=== PATIENT | female | born 1970 | race Caucasian/White ===

== ENCOUNTER → 2016-09-01 | Outpatient (CLI) | payer MEDICARE, BC ==
--- NOTE | 2016-09-02 08:22 | MM ---
Reason for exam: clinical finding. Last mammogram was performed 1 year ago. History: Patient is postmenopausal. Family history of breast cancer in 2 maternal aunts at age 40. Took hormonal contraceptives for 10 months. Taking estrogen for 2 years. Physical Findings: Nurse Summary: 0.5cm nodule in the left breast at 5:30 and at the nipple (nurse dw). MG 3D Diag Mammo W/Cad PABLO Bilateral CC and MLO view(s) were taken. Prior study comparison: September 08, 2015, bilateral MG 3d diag mammo w/cad PABLO. October 01, 2013, CAD bilateral diagnostic mammogram. The breast tissue is heterogeneously dense. This may lower the sensitivity of mammography. Finding: There are typically benign punctate calcifications. Left sided nipple/skin thickening. These results were verbally communicated with the patient and result sheet given to the patient on 09/01/16. ASSESSMENT: Incomplete: need additional imaging evaluation, BI-RAD 0 RECOMMENDATION: Ultrasound of both breasts. Manage patient on a clinical basis.
--- NOTE | 2016-09-02 08:29 | USB ---
Reason for exam: additional evaluation requested from abnormal screening. History: Patient is postmenopausal. Family history of breast cancer in 2 maternal aunts at age 40. Took hormonal contraceptives for 10 months. Taking estrogen for 2 years. US Breast BILAT Right breast ultrasound including all four quadrants, the retroareolar region and axilla demonstrates three lesions too small to characterize measuring 0.24 x 0.12 x 0.12cm at 4 o'clock, 0.38 x 0.22 x 0.47cm at 8 o'clock and 0.30 x 0.18 x 0.28cm at 11 o'clock. Left breast ultrasound including all four quadrants, the retroareolar region and axilla demonstrates a 0.60 x 0.29 x 0.70cm cystic cluster at 3 o'clock and a 0.48 x 0.20 x 0.47cm lesion too small to characterize at 5 o'clock. These results were verbally communicated with the patient and result sheet given to the patient on 09/01/16. ASSESSMENT: Benign, BI-RAD 2 RECOMMENDATION: Surgical consultation of both breasts. Manage patient on a clinical basis. Consider a biopsy and/or punch biopsy. Called Dr. Wing with mammographic findings and has scheduled an appointment for the patient for 09/03/16 at 12:[address] Triplett. PRELIMINARY REPORT CALLED AND FAXED TO DR. TRIPLETT ON 09/02/16 AT 300/TP. Follow-up diagnostic mammogram and ultrasound of both breasts in 6 months.
== END | disposition home or self-care (01) ==
LOC: RADMAMWWP 13:14
PROVIDERS: ATTEND Family Medicine
DX: R92.8 Other abnormal and inconclusive findings on diagnostic imaging of breast (principal); N60.09 Solitary cyst of unspecified breast
CPT/HCPCS: 76641; G0204; G0279

== ENCOUNTER → 2016-10-18 | Outpatient (CLI) | payer MEDICARE, BC ==
[2016-10-18 14:07] LABS: Basophils % (A) 1 %; CH 32.7; CHCM 34.1; Eosinophils % (A) 1 %; HCT 43.1 % (34.0-46.0); HDW 2.75; HGB 14.4 gm/dL (11.4-16.0); Luc # (Auto) 0.12; Luc % (Auto) 3; Lymphocytes # (A) 1.3 k/uL (1.0-4.8); Lymphocytes % (A) 33 %; MCH 32.2 pg (25.0-35.0); MCHC 33.5 g/dL (31.0-37.0); MCV 96.3 fL (80.0-100.0); Mean Platelet Volume 7.8; Monocytes # (A) 0.2 k/uL (0-1.0); Monocytes % (A) 4 %; Neutrophils # (A) 2.3 k/uL (1.3-7.7); Neutrophils % (A) 58 %; RBC 4.48 m/uL (3.80-5.40); RDW 13.6 % (11.5-15.5); WBC (Perox) 3.99
[2016-10-18 16:08] LABS: Erythrocyte Sedimentation Rate 7 mm/hr (0-20)
== END ==
LOC: LABWHC1 13:33
PROVIDERS: ATTEND Internal Medicine Rheumatology
DX: E11.9 Type 2 diabetes mellitus without complications (principal); M35.00 Sjogren syndrome, unspecified; M79.7 Fibromyalgia; M35.9 Systemic involvement of connective tissue, unspecified; G62.9 Polyneuropathy, unspecified; I73.00 Raynaud's syndrome without gangrene; M79.641 Pain in right hand; M79.642 Pain in left hand
CPT/HCPCS: 36415; 85025; 85652; 86140; 86480

== ENCOUNTER 2016-10-22 18:44 | Emergency (ER) | payer MEDICARE, BC ==
[2016-10-22 18:58] VITALS: RESP 18
[2016-10-22] MEDS ORDERED: HYDROcodone/APAP 10-325MG 1 EACH TAB PO ONE (19:32)
--- NOTE | 2016-10-22 20:10 | CT ---
EXAMINATION TYPE: CT brain cspine wo con DATE OF EXAM: 10/22/2016 8:01 PM COMPARISON: 10/25/[address] HISTORY: Fall today. Neck pain. CT DLP: 1713.00 mGycm Automated exposure control for dose reduction was used. TECHNIQUE: CT scan of the head and cervical spine are performed without contrast. FINDINGS: The ventricles and sulci appear normal. There is no mass effect nor midline shift. There is no sign of intracranial hemorrhage. The calvarium is intact. The cervical vertebra have normal alignment. Disc spaces are normal. Posterior elements are intact. F acet joints appear intact. The skull base is intact. IMPRESSION: Negative CT scan of the brain. Negative CT scan of the cervical spine.
--- NOTE | 2016-10-22 20:44 | XR ---
EXAMINATION TYPE: XR wrist complete RT DATE OF EXAM: 10/22/2016 8:32 PM COMPARISON: NONE HISTORY: Fell and wrist pain TECHNIQUE: 4 views FINDINGS: I see no fracture nor dislocation. Joint spaces are normal. Carpal bones appear intact. IMPRESSION: Negative right wrist exam.
--- NOTE | 2016-10-22 20:45 | XR ---
EXAMINATION TYPE: XR elbow complete RT DATE OF EXAM: 10/22/2016 8:32 PM COMPARISON: NONE HISTORY: Fell today and pain TECHNIQUE: 3 views FINDINGS: I see no fracture nor dislocation. There is no sign of elbow joint effusion. Joint spaces a re normal. IMPRESSION: Negative right elbow exam.
--- NOTE | 2016-10-22 20:45 | XR ---
EXAMINATION TYPE: XR ankle complete RT DATE OF EXAM: 10/22/2016 8:32 PM COMPARISON: NONE HISTORY: Ankle pain TECHNIQUE: 3 views FINDINGS: Ankle mortise is anatomic. I see no fracture nor dislocation. There is a small plantar calc aneal spur. There are small Achilles calcaneal spur. Joint spaces are fairly normal. IMPRESSION: Mild calcaneal spurring. No fracture seen.
--- NOTE | 2016-10-22 20:46 | XR ---
EXAMINATION TYPE: XR knee complete RT DATE OF EXAM: 10/22/2016 8:32 PM COMPARISON: NONE HISTORY: Knee pain TECHNIQUE: 3 views FINDINGS: I see no fracture nor dislocation. Joint spaces are normal. There is no sign of knee joint effusion. IMPRESSION: Negative right knee exam.
--- NOTE | 2016-10-22 20:47 | XR ---
EXAMINATION TYPE: XR Hip Complete RT DATE OF EXAM: 10/22/2016 8:32 PM COMPARISON: NONE HISTORY: Hip pain TECHNIQUE: 2 views FINDINGS: I see no fracture nor dislocation. Hip joint space is normal. Sacroiliac joint appears norm al. IMPRESSION: Negative right hip exam.
--- NOTE | 2016-10-22 20:49 | XR ---
EXAMINATION TYPE: XR lumbar spine 2 or 3V DATE OF EXAM: 10/22/2016 8:32 PM COMPARISON: NONE HISTORY: Fell today and back pain TECHNIQUE: 3 views FINDINGS: Lumbar vertebra have normal spacing and alignment. Posterior elements are intact. Sacroilia c joints are normal. IMPRESSION: Negative lumbar spine exam.
--- NOTE | 2016-10-22 20:49 | XR ---
EXAMINATION TYPE: XR thoracic spine 2V DATE OF EXAM: 10/22/2016 8:32 PM COMPARISON: NONE HISTORY: Back pain TECHNIQUE: 3 views FINDINGS: Thoracic vertebra have normal spacing and alignment. Posterior elements are intact. There i s no paraspinal mass. There is no sign of a compression fracture. IMPRESSION: Negative thoracic spine exam.
--- NOTE | 2016-10-22 20:58 | ED ---
Fall HPI - General Chief Complaint: Fall Stated Complaint: SLIP AND FALL, NECK INJURY Time Seen by Provider: 10/22/16 19:23 Source: patient, RN notes reviewed Mode of arrival: wheelchair Limitations: no limitations - History of Present Illness Initial Comments: 46-year-old female comes emergency Department chief complaints of a fall. Patient states she was leaving [facility] states that she fell. Patient complains of right-sided pain. She complains of a headache, neck pain, right elbow pain and right wrist pain right knee pain and right ankle pain and back pain. She has chronic pain in which she takes Percocet for. Patient did not lose consciousness. Denies any confusion. Denies any chest pain, shortness breath, nausea, vomiting. - Related Data Home Medications Medication Instructions Recorded Confirmed Hydroxychloroquine Sulfate 200 mg PO BID 12/17/13 10/01/16 [Plaquenil] Gabapentin [Neurontin] 600 mg PO QID 12/21/13 10/01/16 Methotrexate Sodium [Methotrexate] 20 mg PO ANDERSON 10/02/14 10/01/16 DULoxetine HCL [Cymbalta] 60 mg PO DAILY 02/15/16 10/01/16 Furosemide [Lasix] 40 mg PO DAILY 02/16/16 10/01/16 LORazepam [Ativan] 2 mg PO TID 02/16/16 10/01/16 Potassium Chloride [Klor-Con] 20 meq PO BID 02/16/16 10/01/16 Albuterol Sulfate [Proair Hfa] 2 puff INHALATION RT-TID PRN 07/25/16 10/01/16 Amitriptyline HCl [Elavil] 75 mg PO HS 07/25/16 10/01/16 Budesonide/Formoterol Fumarate 2 puff INHALATION RT-BID 07/25/16 10/01/16 [Symbicort 160-4.5 Mcg Inhaler] Diclofenac Sodium [Voltaren Gel] 4 gram TOPICAL QID PRN 07/25/16 10/01/16 Ergocalciferol (Vitamin D2) 50,000 unit PO WEEKLY 07/25/16 10/01/16 [Vitamin D2] Folic Acid 1 mg PO DAILY 07/25/16 10/01/16 Lidocaine 5% Oint [Xylocaine 5% 1 applic TOPICAL QID PRN 07/25/16 10/01/16 Oint] Lidocaine 5% Patch [Lidoderm 5% 3 patch TOPICAL Q12H PRN 07/25/16 10/01/16 Patch] Methocarbamol [Robaxin] 1,500 mg PO TID 07/25/16 10/01/16 Ondansetron [Zofran ODT] 4 mg PO Q8HR PRN 07/25/16 10/01/16 oxyCODONE-APAP 10-325MG [Percocet 1 tab PO TID 07/25/16 10/01/16 10-325 mg] Perampanel [Fycompa] 1 each PO DAILY 09/28/16 10/01/16 Sennosides [Senna] 8.6 mg PO BID 09/28/16 10/01/16 Allergies Allergy/AdvReac Type Severity Reaction Status Date / Time fentanyl Allergy Rash/Hives Verified 10/22/16 18:58 gluten Allergy Unknown Verified 10/22/16 18:58 latex Allergy Unknown Verified 10/22/16 18:58 simvastatin [From Zocor] Allergy Unknown Verified 10/22/16 18:58 Sulfa (Sulfonamide Allergy Unknown Verified 10/22/16 18:58 Antibiotics) Review of Systems ROS Statement: Those systems with pertinent positive or pertinent negative responses have been documented in the HPI. ROS Other: All systems not noted in ROS Statement are negative. Past Medical History Past Medical History: Asthma, Fibromyalgia, Hypertension, Rheumatoid Arthritis ( RA) Additional Past Medical History / Comment(s): endometriosis, migraine, carpel tunnel, lupus, ovarian cysts, per pt said poss seizure or stroke 2 yrs ago but not confirmed, interstitial cystitis History of Any Multi-Drug Resistant Organisms: MRSA Date of last positivie culture/infection: 2011 MDRO Source:: back Past Surgical History: Appendectomy, Section, Hysterectomy, Tubal Ligation Additional Past Surgical History / Comment(s): c- section x 2, throat surgery, jimena renal stents with removal, ovarian cyst removal Past Anesthesia/Blood Transfusion Reactions: No Reported Reaction Past Psychological History: Depression Smoking Status: Former smoker Past Alcohol Use History: Occasional Additional Past Alcohol Use History / Comment(s): pt states she only smokes a houka pipe occasionally Past Drug Use History: Marijuana - Past Family History Father Family Medical History: CVA/TIA, Diabetes Mellitus, Myocardial Infarction ([place]) Mother Family Medical History: CVA/TIA, Rheumatoid Arthritis ([place]) Additional Family Medical History / Comment(s): Schizo, heart problems General Exam Limitations: no limitations General appearance: alert, in no apparent distress Head exam: Present: atraumatic, normocephalic, normal inspection Eye exam: Present: normal appearance, PERRL, EOMI. Absent: scleral icterus, conjunctival injection, periorbital swelling ENT exam: Present: normal exam, normal oropharynx, mucous membranes moist, TM's normal bilaterally, normal external ear exam Neck exam: Present: normal inspection, tenderness. Absent: meningismus, full ROM (Patient's c-collar), lymphadenopathy Respiratory exam: Present: normal lung sounds bilaterally. Absent: respiratory distress, wheezes, rales, rhonchi, stridor, chest wall tenderness Cardiovascular Exam: Present: regular rate, normal rhythm, normal heart sounds. Absent: systolic murmur, diastolic murmur, rubs, gallop, clicks GI/Abdominal exam: Present: soft, normal bowel sounds. Absent: distended, tenderness, guarding, rebound, rigid Extremities exam: Present: other (Right shoulder full range of motion, mild pain to the right elbow with palpation though full range of motion, right wrist tenderness is old surgical scar noted right knee full range of motion no iris deformity mild swelling right ankle mild tenderness no swelling neurovascular intact) Back exam: Present: normal inspection, full ROM, tenderness (Diffuse moderate), paraspinal tenderness. Absent: vertebral tenderness Neurological exam: Present: alert, oriented X3, CN II-XII intact, reflexes normal. Absent: motor sensory deficit Psychiatric exam: Present: normal affect, normal mood Course Vital Signs 10/22/16 18:56 Temperature 98.0 F Pulse Rate 85 Respiratory 18 Rate Blood Pressure 135/92 O2 Sat by Pulse 99 Oximetry Medical Decision Making - Medical Decision Making 46-year-old female presented for fall. There is no acute fractures no intracranial bleed. Patient be discharged. Disposition Clinical Impression: Fall, Right wrist sprain, Right ankle sprain, Right elbow pain, Right knee pain , Back pain Disposition: HOME SELF-CARE Condition: Stable Instructions: Contusion in Adults (ED) Additional Instructions: Please return to the Emergency Department if symptoms worsen or any other concerns. Referrals: Alicia Wing III, MD [Primary Care Provider] - 1-2 days Time of Disposition: 20:58
[2016-10-22] MEDS ORDERED: MORPHINE SULFATE 4 MG/ML SYRINGE IM STA (21:02)
[2016-10-22 21:16] VITALS: BP 142/75; PULSE 65; TEMP 98.3
== END 2016-10-22 21:16 | disposition home or self-care (01) ==
LOC: EC 18:44
DX: S63.501A Unspecified sprain of right wrist, initial encounter (principal); S93.401A Sprain of unspecified ligament of right ankle, initial encounter; M25.521 Pain in right elbow; M54.9 Dorsalgia, unspecified; M25.561 Pain in right knee; W01.0XXA Fall on same level from slipping, tripping and stumbling without subsequent striking against object, initial encounter; Y92.512 Supermarket, store or market as the place of occurrence of the external cause; M79.7 Fibromyalgia; M06.9 Rheumatoid arthritis, unspecified; I10 Essential (primary) hypertension; J45.909 Unspecified asthma, uncomplicated; M32.9 Systemic lupus erythematosus, unspecified; G43.909 Migraine, unspecified, not intractable, without status migrainosus; F32.9 Major depressive disorder, single episode, unspecified; Z79.51 Long term (current) use of inhaled steroids; Z79.891 Long term (current) use of opiate analgesic; Z79.899 Other long term (current) drug therapy; Z88.2 Allergy status to sulfonamides; Z88.5 Allergy status to narcotic agent; Z88.8 Allergy status to other drugs, medicaments and biological substances; Z91.040 Latex allergy status; Z87.891 Personal history of nicotine dependence
CPT/HCPCS: 72070; 72100; 73502; 73080; 73110; 73562; 73610; 72125; 70450; 99284; 96372; J2270

== ENCOUNTER 2016-10-23 08:59 | Emergency (ER) | payer MEDICARE, BC ==
[2016-10-23 09:06] VITALS: BP 133/84; PULSE 86; RESP 16; TEMP 98.6
[2016-10-23] MEDS ORDERED: DIAZEPAM 5 MG TAB PO STA (09:34)
--- NOTE | 2016-10-23 09:39 | ED ---
General Adult HPI - General Chief complaint: Back Pain/Injury Stated complaint: BACK PAIN, NECK PAIN, HEADACHE Time Seen by Provider: 10/23/16 09:25 Source: patient, RN notes reviewed, old records reviewed Mode of arrival: wheelchair Limitations: no limitations - History of Present Illness Initial comments: Patient 46-year-old female who presents emergency room today with a chief complaint of a fall that occurred yesterday. Patient was seen here in the emergency room had multiple x-rays and CAT scan of her head and neck. Patient states had a difficult time sleeping last night. She does admit to a history of fibromyalgia. States she feels like her fibromyalgia is increased. She is under pain contract does take a Percocet. States she did take this with little relief of her symptoms. Patient was given morphine yesterday. Patient states there is sore on the right side. Patient states is worse with any movements, turning, twisting. Patient denies any bowel or bladder incontinence retention. Denies any saddle anesthesia. Denies headache at this time. Denies any loss consciousness from the fall. States she's having pain to right side of her back of her shoulder. Describes as "burning sensation. Denies any other complaints or symptoms. Patient denies any recent fever, chills, shortness of breath, chest pain, back pain, abdominal pain, nausea or vomiting, numbness or tingling, dysuria or hematuria, constipation or diarrhea, headaches or visual changes, or any other complaints. - Related Data Home Medications Medication Instructions Recorded Confirmed Hydroxychloroquine Sulfate 200 mg PO BID 12/17/13 10/23/16 [Plaquenil] Gabapentin [Neurontin] 600 mg PO QID 12/21/13 10/23/16 Methotrexate Sodium [Methotrexate] 20 mg PO ANDERSON 10/02/14 10/23/16 DULoxetine HCL [Cymbalta] 60 mg PO DAILY 02/15/16 10/23/16 Furosemide [Lasix] 40 mg PO DAILY 02/16/16 10/23/16 LORazepam [Ativan] 2 mg PO TID 02/16/16 10/23/16 Potassium Chloride [Klor-Con] 20 meq PO BID 02/16/16 10/23/16 Albuterol Sulfate [Proair Hfa] 2 puff INHALATION RT-TID PRN 07/25/16 10/23/16 Amitriptyline HCl [Elavil] 75 mg PO HS 07/25/16 10/23/16 Budesonide/Formoterol Fumarate 2 puff INHALATION RT-BID 07/25/16 10/23/16 [Symbicort 160-4.5 Mcg Inhaler] Diclofenac Sodium [Voltaren Gel] 4 gram TOPICAL QID PRN 07/25/16 10/23/16 Ergocalciferol (Vitamin D2) 50,000 unit PO WEEKLY 07/25/16 10/23/16 [Vitamin D2] Folic Acid 1 mg PO DAILY 07/25/16 10/23/16 Lidocaine 5% Oint [Xylocaine 5% 1 applic TOPICAL QID PRN 07/25/16 10/23/16 Oint] Lidocaine 5% Patch [Lidoderm 5% 3 patch TOPICAL Q12H PRN 07/25/16 10/23/16 Patch] Methocarbamol [Robaxin] 1,500 mg PO TID 07/25/16 10/23/16 Ondansetron [Zofran ODT] 4 mg PO Q8HR PRN 07/25/16 10/23/16 oxyCODONE-APAP 10-325MG [Percocet 1 tab PO TID 07/25/16 10/23/16 10-325 mg] Perampanel [Fycompa] 1 each PO DAILY 09/28/16 10/23/16 Sennosides [Senna] 8.6 mg PO BID 09/28/16 10/23/16 Previous Rx's Medication Instructions Recorded Cyclobenzaprine [Flexeril] 10 mg PO TID #20 tab 10/23/16 Allergies Allergy/AdvReac Type Severity Reaction Status Date / Time fentanyl Allergy Rash/Hives Verified 10/23/16 09:05 gluten Allergy Unknown Verified 10/23/16 09:05 latex Allergy Unknown Verified 10/23/16 09:05 simvastatin [From Zocor] Allergy Unknown Verified 10/23/16 09:05 Sulfa (Sulfonamide Allergy Unknown Verified 10/23/16 09:05 Antibiotics) Review of Systems ROS Statement: Those systems with pertinent positive or pertinent negative responses have been documented in the HPI. ROS Other: All systems not noted in ROS Statement are negative. Past Medical History Past Medical History: Asthma, Fibromyalgia, Hypertension, Rheumatoid Arthritis ( RA) Additional Past Medical History / Comment(s): endometriosis, migraine, carpel tunnel, lupus, ovarian cysts, per pt said poss seizure or stroke 2 yrs ago but not confirmed, interstitial cystitis History of Any Multi-Drug Resistant Organisms: MRSA Date of last positivie culture/infection: 2011 MDRO Source:: back Past Surgical History: Appendectomy, Section, Hysterectomy, Tubal Ligation Additional Past Surgical History / Comment(s): c- section x 2, throat surgery, jimena renal stents with removal, ovarian cyst removal Past Anesthesia/Blood Transfusion Reactions: No Reported Reaction Past Psychological History: Depression Smoking Status: Former smoker Past Alcohol Use History: Occasional Additional Past Alcohol Use History / Comment(s): pt states she only smokes a houka pipe occasionally Past Drug Use History: Marijuana - Past Family History Father Family Medical History: CVA/TIA, Diabetes Mellitus, Myocardial Infarction ([place]) Mother Family Medical History: CVA/TIA, Rheumatoid Arthritis (RA) Additional Family Medical History / Comment(s): Schizo, heart problems General Exam - General Exam Comments Initial Comments: General: The patient is awake and alert, in no distress, and does not appear acutely ill. Eye: Pupils are equal, round and reactive to light, extra-ocular movements are intact. No nystagmus. There is normal conjunctiva bilaterally. No signs of icterus. Ears, nose, mouth and throat: There are moist mucous membranes and no oral lesions. Neck: The neck is supple, there is no tenderness or JVD. Cardiovascular: There is a regular rate and rhythm. No murmur, rub or gallop is appreciated. Respiratory: Lungs are clear to auscultation, respirations are non-labored, breath sounds are equal. No wheezes, stridor, rales, or rhonchi. Musculoskeletal: Normal ROM, no bony tenderness over cervical, thoracic, lumbar spine. Mild tenderness paravertebrally to the right side. No bony tenderness over the right shoulder. Shows full range motion all areas. Strength 5/5. Sensation intact. Pulses equal bilaterally 2+. Neurological: A&O x 3. CN II-XII intact, There are no obvious motor or sensory deficits. Coordination appears grossly intact. Speech is normal. Skin: Skin is warm and dry and no rashes or lesions are noted. Psychiatric: Cooperative, appropriate mood & affect, normal judgment. Limitations: no limitations Course Vital Signs 10/23/16 09:00 Temperature 98.6 F Pulse Rate 86 Respiratory 16 Rate Blood Pressure 133/84 O2 Sat by Pulse 93 L Oximetry Medical Decision Making - Medical Decision Making Patient's previous visit from yesterday thoroughly reviewed. All x-rays and CAT scans reviewed showing no acute fractures dislocations or abnormalities. Results were discussed with the patient. At this time patient advised to follow -up in 7-10 days for repeat x-rays of any specific areas that seem to be tender and not improving. Was discussed with patient about muscle or skeletal pain. Will be given Valium here in the emergency room to use as a muscle relaxant discharged home on Flexeril. Advised continue her Percocet and ibuprofen for pain. Advised to follow-up the family doctor return for any other concerns. Disposition Clinical Impression: Fall, Muscle strain Disposition: HOME SELF-CARE Condition: Good Instructions: Muscle Strain (ED) Additional Instructions: Please use ice for any swelling. Please use heat to the muscle areas as discussed. Please follow-up the family doctor in 7-10 days if symptoms persist for repeat x-rays as discussed. Please muscle relaxer as prescribed and be aware that it may make you drowsy. Please return to emergency room for any other concerns. Prescriptions: Cyclobenzaprine [Flexeril] 10 mg PO TID #20 tab Time of Disposition: 09:37
== END 2016-10-23 10:27 | disposition home or self-care (01) ==
LOC: EC 08:59
DX: S39.012A Strain of muscle, fascia and tendon of lower back, initial encounter (principal); M54.2 Cervicalgia; R51 Headache; J45.909 Unspecified asthma, uncomplicated; I10 Essential (primary) hypertension; M06.9 Rheumatoid arthritis, unspecified; M79.7 Fibromyalgia; F32.9 Major depressive disorder, single episode, unspecified; Z87.891 Personal history of nicotine dependence; Z79.891 Long term (current) use of opiate analgesic; Z79.899 Other long term (current) drug therapy; Z79.51 Long term (current) use of inhaled steroids; Z88.8 Allergy status to other drugs, medicaments and biological substances; Z88.2 Allergy status to sulfonamides; Z91.040 Latex allergy status; Z86.69 Personal history of other diseases of the nervous system and sense organs; X50.3XXA Overexertion from repetitive movements, initial encounter
CPT/HCPCS: 99283

== ENCOUNTER → 2016-10-28 | Outpatient (CLI) | payer MEDICARE, BC ==
--- NOTE | 2016-10-28 09:48 | MR ---
EXAMINATION TYPE: MR brain wo con DATE OF EXAM: 10/28/2016 9:31 AM. COMPARISON: Previous study dated 07/30/2011. HISTORY: Unexplained fall. Technique: Multiplanar, multiecho imaging of the brain was obtained without intravenous contrast. FINDINGS: Midline structures are unremarkable. There is a normal craniocervical junction. Echoplanar diffusion imaging is normal. There are normal vascular flow voids. The orbits are unremarkable. I do not see evidence of a CP angle mass lesion. There are scattered subcentimeter high signal FLAIR lesions throughout both cerebral hemispheres. The se are stable. There is no mass effect, midline shift or intracranial blood identified. IMPRESSION: 1. NO ACUTE INTRACRANIAL ABNORMALITY. 2. NUMEROUS, SCATTERED HIGH SIGNAL FLAIR LESIONS THROUGHOUT THE DEEP WHITE MATTER TRACTS OF THE CEREB RAL HEMISPHERES, UNCHANGED FROM PREVIOUS. A DIFFERENTIAL DIAGNOSIS INCLUDES SMALL VESSEL DISEASE, DEM YELINATION, HYPERTENSION, MIGRAINE HEADACHES AND LYME'S DISEASE.
== END | disposition home or self-care (01) ==
LOC: RADMRIMAIN 08:11
PROVIDERS: ATTEND Nurse Practitioner Family
DX: G93.89 Other specified disorders of brain (principal); R90.82 White matter disease, unspecified; R11.0 Nausea
CPT/HCPCS: 70551

== ENCOUNTER 2016-12-01 22:03 | Emergency (ER) | payer MEDICARE, BC ==
[2016-12-01 22:26] VITALS: RESP 16; TEMP 98.2
[2016-12-01] MEDS ORDERED: diphenhydrAMINE 50 MG/ML 1 ML VIAL IVP STA (22:37)
[2016-12-01] MEDS ORDERED: methylPREDNISolone SOD SUCCI 125 MG/2 ML VIAL IV STA (22:37)
--- NOTE | 2016-12-01 22:39 | ED ---
General Adult HPI - General Chief complaint: Allergic Reaction Stated complaint: Allergic Reaction (MRI contrast) Time Seen by Provider: 12/01/16 22:25 Source: patient, RN notes reviewed Mode of arrival: ambulatory Limitations: no limitations - History of Present Illness Initial comments: This is a 46 year old female presents to the emergency department after having had contrast with an MRI today. Patient states about 45 minutes ago she finished her MRI and her hand was burning and she had a rash down her arm and starting on the other arm. Patient states the rash is very itchy. Patient states she has a dry throat when I ask her if her throat feels like it's closing. Patient states she's had no difficulty breathing shortness of breath per patient denies any chest pain or palpitations. Patient denies any nausea vomiting diarrhea. Patient denies any headache patient denies numbness weakness. - Related Data Home Medications Medication Instructions Recorded Confirmed Hydroxychloroquine Sulfate 200 mg PO BID 12/17/13 12/01/16 [Plaquenil] Gabapentin [Neurontin] 600 mg PO QID 12/21/13 12/01/16 DULoxetine HCL [Cymbalta] 60 mg PO DAILY 02/15/16 12/01/16 Furosemide [Lasix] 40 mg PO DAILY 02/16/16 12/01/16 LORazepam [Ativan] 2 mg PO TID 02/16/16 12/01/16 Potassium Chloride [Klor-Con] 20 meq PO BID 02/16/16 12/01/16 Albuterol Sulfate [Proair Hfa] 2 puff INHALATION RT-TID PRN 07/25/16 12/01/16 Amitriptyline HCl [Elavil] 75 mg PO HS 07/25/16 12/01/16 Budesonide/Formoterol Fumarate 2 puff INHALATION RT-BID PRN 07/25/16 12/01/16 [Symbicort 160-4.5 Mcg Inhaler] Diclofenac Sodium [Voltaren Gel] 4 gram TOPICAL QID PRN 07/25/16 12/01/16 Folic Acid 1 mg PO DAILY 07/25/16 12/01/16 Lidocaine 5% Oint [Xylocaine 5% 1 applic TOPICAL QID PRN 07/25/16 12/01/16 Oint] Lidocaine 5% Patch [Lidoderm 5% 3 patch TOPICAL Q12H PRN 07/25/16 12/01/16 Patch] Ondansetron [Zofran ODT] 4 mg PO Q8HR PRN 07/25/16 12/01/16 oxyCODONE-APAP 10-325MG [Percocet 1 tab PO TID 07/25/16 12/01/16 10-325 mg] Sennosides [Senna] 8.6 mg PO BID 09/28/16 12/01/16 Cholecalciferol [Vitamin D3] 3,000 unit PO DAILY 12/01/16 12/01/16 Methotrexate Injection 25mg/Ml 25 mg SQ WE 12/01/16 12/01/16 Scopolamine 1.5MG/72Hr Patch 1 patch TRANSDERM Q72H 12/01/16 12/01/16 [Transderm-Scop 1.5MG/72Hr Patch] Tofacitinib Citrate [Xeljanz Xr] 11 mg PO DAILY 12/01/16 12/01/16 Previous Rx's Medication Instructions Recorded predniSONE 20 mg PO DAILY #3 tab 12/02/16 Allergies Allergy/AdvReac Type Severity Reaction Status Date / Time adhesive Allergy Rash/Hives Verified 12/01/16 22:51 enbucrilate Allergy Rash/Hives Verified 12/01/16 22:51 gluten Allergy Unknown Verified 12/01/16 22:51 latex Allergy Unknown Verified 12/01/16 22:51 meclizine [From Antivert] Allergy Rash/Hives Verified 12/01/16 22:51 simvastatin [From Zocor] Allergy Unknown Verified 12/01/16 22:51 Sulfa (Sulfonamide Allergy Unknown Verified 12/01/16 22:51 Antibiotics) Review of Systems ROS Statement: Those systems with pertinent positive or pertinent negative responses have been documented in the HPI. ROS Other: All systems not noted in ROS Statement are negative. Past Medical History Past Medical History: Asthma, Fibromyalgia, Hypertension, Rheumatoid Arthritis ( RA) Additional Past Medical History / Comment(s): endometriosis, migraine, carpel tunnel, lupus, ovarian cysts, per pt said poss seizure or stroke 2 yrs ago but not confirmed, interstitial cystitis History of Any Multi-Drug Resistant Organisms: MRSA Date of last positivie culture/infection: 2011 MDRO Source:: back Past Surgical History: Appendectomy, Section, Hysterectomy, Tubal Ligation Additional Past Surgical History / Comment(s): c- section x 2, throat surgery, jimena renal stents with removal, ovarian cyst removal Past Anesthesia/Blood Transfusion Reactions: No Reported Reaction Past Psychological History: Depression Smoking Status: Former smoker Past Alcohol Use History: Occasional Additional Past Alcohol Use History / Comment(s): pt states she only smokes a houka pipe occasionally Past Drug Use History: Marijuana - Past Family History Father Family Medical History: CVA/TIA, Diabetes Mellitus, Myocardial Infarction ([place]) Mother Family Medical History: CVA/TIA, Rheumatoid Arthritis ([place]) Additional Family Medical History / Comment(s): Schizo, heart problems General Exam - General Exam Comments Initial Comments: GENERAL: Patient is well-developed and well-nourished. Patient is nontoxic and well- hydrated and is in mild distress. ENT: Neck is soft and supple. No significant lymphadenopathy is noted. Oropharynx is clear. Moist mucous membranes. Neck has full range of motion without eliciting any pain. EYES: The sclera were anicteric and conjunctiva were pink and moist. Extraocular movements were intact and pupils were equal round and reactive to light. Eyelids were unremarkable. PULMONARY: Unlabored respirations. Good breath sounds bilaterally. No audible rales rhonchi or wheezing was noted. CARDIOVASCULAR: There is a regular rate and rhythm without any murmurs gallops or rubs. ABDOMEN: Soft and nontender with normal bowel sounds. No palpable organomegaly was noted. There is no palpable pulsatile mass. SKIN: There is a very slight erythematous rash on left forearm where the IV was in very subtle redness to the right arm it's macular in nature there is no swelling noted. NEUROLOGIC: Patient is alert and oriented x3. Cranial nerves II through XII are grossly intact. Motor and sensory are also intact. Normal speech, volume and content. Symmetrical smile. MUSCULOSKELETAL: Normal extremities with adequate strength and full range of motion. LYMPHATICS: No significant lymphadenopathy is noted PSYCHIATRIC: Normal psychiatric evaluation. Limitations: no limitations Course Vital Signs 12/01/16 22:24 Temperature 98.2 F Pulse Rate 87 Respiratory 16 Rate Blood Pressure 130/68 O2 Sat by Pulse 99 Oximetry Medical Decision Making - Medical Decision Making After the patient received prednisone and Medrol the rash completely resolved. Patient was still complaining of some discomfort in the thenar aspect of the hand. I gave her Toradol and she wanted to go home at this point in time. Disposition Clinical Impression: Reaction to contrast media Disposition: HOME SELF-CARE Condition: Good Instructions: Allergies (ED) Prescriptions: predniSONE 20 mg PO DAILY #3 tab Referrals: Alicia Wing III, MD [Primary Care Provider] - 1-2 days Time of Disposition: 23:59
[2016-12-01] MEDS ORDERED: KETOROLAC 60 MG/2 ML VIAL IVP STA (23:57)
[2016-12-02 00:11] VITALS: BP 123/65; PULSE 73
== END 2016-12-02 00:12 | disposition home or self-care (01) ==
LOC: EC 22:03
DX: L25.1 Unspecified contact dermatitis due to drugs in contact with skin (principal); T50.8X5A Adverse effect of diagnostic agents, initial encounter; M06.9 Rheumatoid arthritis, unspecified; M79.7 Fibromyalgia; F32.9 Major depressive disorder, single episode, unspecified; Z87.891 Personal history of nicotine dependence; Z79.891 Long term (current) use of opiate analgesic; Z79.899 Other long term (current) drug therapy; Z88.2 Allergy status to sulfonamides; Z88.8 Allergy status to other drugs, medicaments and biological substances; Z91.040 Latex allergy status; Z91.09 Other allergy status, other than to drugs and biological substances
CPT/HCPCS: 96375 ×3; 96374 ×2; 99283 ×2; 0159T; C8908; J1200; J2930; J1885; A9577; 77059

== ENCOUNTER → 2016-12-01 | Outpatient (CLI) | payer MEDICARE, BC ==
--- NOTE | 2016-12-04 08:11 | BMR ---
EXAMINATION TYPE: MR breast BILAT wo/w con DATE OF EXAM: 12/01/2016 9:49 PM COMPARISON: Bilateral 3-D breast mammogram September 01, 2016 BI-RADS 0. Bilateral breast ultrasound Ja [id number] BI-RADS 2. HISTORY: Lump in left breast, bloody discharge, left breast nodule CONTRAST: Multiplanar, multisequence images of the breasts were acquired utilizing 13 mL intravenous MultiHance gadolinium contrast. TECHNIQUE: A series of fat and water weighted images in the long and short axis views of both breasts are obtained in conjunction with dynamic contrast MRI with subtraction technique. Three-dimensional and additional postprocessing imaging is created on independent workstation and reviewed during offi cial interpretation of this study. FINDINGS: There is heterogeneously dense fibroglandular tissue noted throughout both breasts. There i s mild to minimal symmetric background enhancement. T2-weighted images show several simple appearing small cyst bilaterally. No suspicious skin thickening is seen bilaterally. No concerning intramammary or suspicious axillary adenopathy is noted bilaterally. The chest wall is intact. There is asymmetri meaghan prominent tissue in the posterior depth upper outer aspect of right breast present. There are s ome tiny area of nodularity in the inferior lower quadrant of left breast seen best on subtraction im age 194 series 802, this appears to correlate near the level of palpable abnormality by nurse on mamm ogram. Dynamic postcontrast images show predominantly benign enhancement with flow initial uptake and progressive enhancement, some indeterminant areas of enhancement are present. All nodular areas britt ure under 5 mm. Confluent nodular area measures roughly 9 x 7 mm. No additional areas suspicious path ologic enhancement or mass are present bilaterally. Incidental note is made of tiny dependent right pleural effusion inferiorly. IMPRESSION: No convincing MRI evidence for invasive malignancy. Area lower outer quadrant left breast MRI is slightly more suspicious as correlates with palpable abnormality, some under 5 mm too small t o characterize lesion was present on recent ultrasound. BI-RADS 3 probable benign findings. Recommendation: Recommend repeat targeted left breast ultrasound to ensure no significant change from ultrasound 3 months ago.
== END | disposition home or self-care (01) ==
LOC: RADMRIMAIN 19:56
PROVIDERS: ATTEND Surgery
DX: N64.52 Nipple discharge (principal); N63 Unspecified lump in breast; R92.8 Other abnormal and inconclusive findings on diagnostic imaging of breast
CPT/HCPCS: 0159T; C8908; A9577; 77059

== ENCOUNTER 2016-12-14 11:46 | Observation (INO) | payer MEDICARE, BC ==
[2016-12-14] MEDS ORDERED: ASPIRIN 81 MG CHEW PO STA (12:06)
[2016-12-14] MEDS ORDERED: NITROGLYCERIN SL TABS 0.4 MG TAB SUBLINGUAL STA ×3 (12:06)
--- NOTE | 2016-12-14 12:09 | ED ---
General Adult HPI - General Chief complaint: Chest Pain Stated complaint: Chest Pain Time Seen by Provider: 12/14/16 11:57 Source: patient, RN notes reviewed Mode of arrival: ambulatory Limitations: no limitations - History of Present Illness Initial comments: Patient is a pleasant 46-year-old female presenting to the emergency department complaining of chest discomfort. Patient had some last night. Discomfort was worse today. Patient does have increased stress. Patient has tightness in her chest with radiation to the left shoulder. Patient has had some associated nausea and vomiting. No diaphoresis. Patient did have some mild dyspnea earlier. No history of similar symptoms previously. - Related Data Home Medications Medication Instructions Recorded Confirmed Hydroxychloroquine Sulfate 200 mg PO BID 12/17/13 12/14/16 [Plaquenil] Gabapentin [Neurontin] 600 mg PO QID 12/21/13 12/14/16 LORazepam [Ativan] 2 mg PO TID 02/16/16 12/14/16 Albuterol Sulfate [Proair Hfa] 2 puff INHALATION RT-QID PRN 07/25/16 12/14/16 Budesonide/Formoterol Fumarate 2 puff INHALATION RT-BID PRN 07/25/16 12/14/16 [Symbicort 160-4.5 Mcg Inhaler] Diclofenac Sodium [Voltaren Gel] 4 gram TOPICAL QID PRN 07/25/16 12/14/16 Lidocaine 5% Oint [Xylocaine 5% 1 applic TOPICAL QID PRN 07/25/16 12/14/16 Oint] Lidocaine 5% Patch [Lidoderm 5% 3 patch TOPICAL Q12H PRN 07/25/16 12/14/16 Patch] Ondansetron [Zofran ODT] 2 mg PO Q8HR PRN 07/25/16 12/14/16 oxyCODONE-APAP 10-325MG [Percocet 1 tab PO TID 07/25/16 12/14/16 10-325 mg] Sennosides [Senna] 8.6 mg PO DAILY PRN 09/28/16 12/14/16 Methotrexate Injection 25mg/Ml 20 mg SQ WE 12/01/16 12/14/16 Scopolamine 1.5MG/72Hr Patch 1 patch TRANSDERM Q72H 12/01/16 12/14/16 [Transderm-Scop 1.5MG/72Hr Patch] Tofacitinib Citrate [Xeljanz Xr] 11 mg PO DAILY 12/01/16 12/14/16 Baclofen [Lioresal] 10 mg PO TID 12/14/16 12/14/16 Butalb/Asprin/Caff 50-325-40Mg 1 cap PO Q4HR PRN 12/14/16 12/14/16 [Fiorinal 50-325-40 MG] Cetirizine HCl 10 mg PO DAILY 12/14/16 12/14/16 Hydrocortisone Pr Cream 1 applic RECTAL DAILY PRN 12/14/16 12/14/16 [Proctosol-Hc 2.5%] QUEtiapine FUMARATE [SEROquel] 25 mg PO HS 12/14/16 12/14/16 Allergies Allergy/AdvReac Type Severity Reaction Status Date / Time adhesive Allergy Rash/Hives Verified 12/14/16 12:20 enbucrilate Allergy Rash/Hives Verified 12/14/16 12:20 gluten Allergy Unknown Verified 12/14/16 12:20 latex Allergy Unknown Verified 12/14/16 12:20 meclizine [From Antivert] Allergy Rash/Hives Verified 12/14/16 12:20 simvastatin [From Zocor] Allergy Unknown Verified 12/14/16 12:20 Sulfa (Sulfonamide Allergy Unknown Verified 12/14/16 12:20 Antibiotics) Review of Systems ROS Statement: Those systems with pertinent positive or pertinent negative responses have been documented in the HPI. ROS Other: All systems not noted in ROS Statement are negative. Constitutional: Denies: fever Eyes: Denies: eye pain ENT: Denies: ear pain Respiratory: Reports: dyspnea. Denies: cough Cardiovascular: Reports: chest pain Endocrine: Denies: fatigue Gastrointestinal: Denies: abdominal pain Genitourinary: Denies: urgency Musculoskeletal: Denies: back pain Skin: Denies: rash Neurological: Denies: headache Psychiatric: Reports: anxiety Past Medical History Past Medical History: Asthma, Fibromyalgia, Hypertension, Rheumatoid Arthritis ( RA) Additional Past Medical History / Comment(s): endometriosis, migraine, carpel tunnel, lupus, ovarian cysts, per pt dr said poss seizure or stroke 2 yrs ago but not confirmed, interstitial cystitis History of Any Multi-Drug Resistant Organisms: MRSA Date of last positivie culture/infection: 2012 MDRO Source:: back Past Surgical History: Appendectomy, Section, Hysterectomy, Tubal Ligation Additional Past Surgical History / Comment(s): c- section x 2, throat surgery, jimena renal stents with removal, ovarian cyst removal Past Anesthesia/Blood Transfusion Reactions: No Reported Reaction Past Psychological History: Depression Smoking Status: Former smoker Past Alcohol Use History: Occasional Additional Past Alcohol Use History / Comment(s): pt states she only smokes a houka pipe occasionally Past Drug Use History: Marijuana - Past Family History Father Family Medical History: CVA/TIA, Diabetes Mellitus, Myocardial Infarction ([place]) Mother Family Medical History: CVA/TIA, Rheumatoid Arthritis (RA) Additional Family Medical History / Comment(s): Schizo, heart problems General Exam Limitations: no limitations General appearance: alert, in no apparent distress Head exam: Present: atraumatic Eye exam: Present: normal appearance, PERRL ENT exam: Present: normal oropharynx Neck exam: Present: normal inspection Respiratory exam: Present: normal lung sounds bilaterally Cardiovascular Exam: Present: regular rate, normal rhythm Expanded Peripheral pulses: 2+: Radial (R), Radial (L), Dorsalis Pedis (R), Dorsalis Pedis (L) GI/Abdominal exam: Present: soft. Absent: tenderness Extremities exam: Present: normal inspection. Absent: pedal edema, calf tenderness Neurological exam: Present: alert Psychiatric exam: Present: anxious Skin exam: Absent: rash Course Vital Signs 12/14/16 12/14/16 12/14/16 11:48 12:34 12:48 Temperature 99.3 F Pulse Rate 101 H 83 71 Respiratory 20 104 H 18 Rate Blood Pressure 117/74 104/74 102/71 O2 Sat by Pulse 98 95 96 Oximetry 12/14/16 12/14/16 13:00 14:00 Temperature Pulse Rate 69 60 Respiratory 18 20 Rate Blood Pressure 105/71 98/63 O2 Sat by Pulse 98 95 Oximetry EKG Findings - EKG Comments: EKG Findings:: Normal sinus rhythm 79. Normal intervals. Normal axis. Normal QRS. Normal ST-T. Medical Decision Making - Medical Decision Making Patient reevaluated and resting comfortably in bed. Symptoms have improved however not resolved. Patient updated on results and plan. Case discussed in detail with Dr. Thayer, who will admit for Dr. Wing. - Lab Data Result diagrams: 12/14/16 11:59 12/14/16 11:59 Lab Results 12/14/16 12/14/16 12/14/16 Range/Units 11:59 11:59 11:59 WBC 4.8 (3.8-10.6) k/uL RBC 4.49 (3.80-5.40) m/uL Hgb 14.6 (11.4-16.0) gm/dL Hct 43.0 (34.0-46.0) % MCV 96.0 (80.0-100.0) fL MCH 32.6 (25.0-35.0) pg MCHC 34.0 (31.0-37.0) g/dL RDW 14.2 (11.5-15.5) % Plt Count 220 (150-450) k/uL Neutrophils % 60 % Lymphocytes % 33 % Monocytes % 4 % Eosinophils % 1 % Basophils % 1 % Neutrophils # 2.9 (1.3-7.7) k/uL Lymphocytes # 1.6 (1.0-4.8) k/uL Monocytes # 0.2 (0-1.0) k/uL Eosinophils # 0.1 (0-0.7) k/uL Basophils # 0.0 (0-0.2) k/uL PT (9.0-12.0) sec INR (<1.1) APTT (22.0-30.0) sec D-Dimer (<0.60) mg/L FEU Sodium 143 (137-145) mmol/L Potassium 4.2 (3.5-5.1) mmol/L Chloride 105 (98-107) mmol/L Carbon Dioxide 26 (22-30) mmol/L Anion Gap 12 mmol/L BUN 8 (7-17) mg/dL Creatinine 0.60 (0.52-1.04) mg/dL Est GFR (MDRD) Af Amer >60 (>60 ml/min/1.73 sqM) Est GFR (MDRD) Non-Af >60 (>60 ml/min/1.73 sqM) Glucose 107 H (74-99) mg/dL Calcium 10.1 (8.4-10.2) mg/dL Magnesium 2.1 (1.6-2.3) mg/dL Total Bilirubin 0.7 (0.2-1.3) mg/dL AST 28 (14-36) U/L ALT 35 (9-52) U/L Alkaline Phosphatase 72 (38-126) U/L Total Creatine Kinase 55 (30-135) U/L CK-MB (CK-2) <0.2 (0.0-2.4) ng/mL CK-MB (CK-2) Rel Index Troponin I <0.012 (0.000-0.034) ng/mL Total Protein 7.9 (6.3-8.2) g/dL Albumin 4.9 (3.5-5.0) g/dL 12/14/16 Range/Units 11:59 WBC (3.8-10.6) k/uL RBC (3.80-5.40) m/uL Hgb (11.4-16.0) gm/dL Hct (34.0-46.0) % MCV (80.0-100.0) fL MCH (25.0-35.0) pg MCHC (31.0-37.0) g/dL RDW (11.5-15.5) % Plt Count (150-450) k/uL Neutrophils % % Lymphocytes % % Monocytes % % Eosinophils % % Basophils % % Neutrophils # (1.3-7.7) k/uL Lymphocytes # (1.0-4.8) k/uL Monocytes # (0-1.0) k/uL Eosinophils # (0-0.7) k/uL Basophils # (0-0.2) k/uL PT 10.8 (9.0-12.0) sec INR 1.1 (<1.1) APTT 24.8 (22.0-30.0) sec D-Dimer <0.17 (<0.60) mg/L FEU Sodium (137-145) mmol/L Potassium (3.5-5.1) mmol/L Chloride (98-107) mmol/L Carbon Dioxide (22-30) mmol/L Anion Gap mmol/L BUN (7-17) mg/dL Creatinine (0.52-1.04) mg/dL Est GFR (MDRD) Af Amer (>60 ml/min/1.73 sqM) Est GFR (MDRD) Non-Af (>60 ml/min/1.73 sqM) Glucose (74-99) mg/dL Calcium (8.4-10.2) mg/dL Magnesium (1.6-2.3) mg/dL Total Bilirubin (0.2-1.3) mg/dL AST (14-36) U/L ALT (9-52) U/L Alkaline Phosphatase (38-126) U/L Total Creatine Kinase (30-135) U/L CK-MB (CK-2) (0.0-2.4) ng/mL CK-MB (CK-2) Rel Index Troponin I (0.000-0.034) ng/mL Total Protein (6.3-8.2) g/dL Albumin (3.5-5.0) g/dL - Radiology Data Radiology results: image reviewed (Chest x-ray shows no acute process) Disposition Clinical Impression: Chest pain Disposition: ADMITTED IP TO THIS HOSP
[2016-12-14 12:21] LABS: Basophils % (A) 1 %; CH 32.8; CHCM 34.3; Eosinophils # (A) 0.1 k/uL (0-0.7); Eosinophils % (A) 1 %; HDW 2.69; HGB 14.6 gm/dL (11.4-16.0); Luc # (Auto) 0.09; Luc % (Auto) 2; Lymphocytes # (A) 1.6 k/uL (1.0-4.8); Lymphocytes % (A) 33 %; MCH 32.6 pg (25.0-35.0); Mean Platelet Volume 7.2; Monocytes # (A) 0.2 k/uL (0-1.0); Monocytes % (A) 4 %; Neutrophils # (A) 2.9 k/uL (1.3-7.7); Neutrophils % (A) 60 %; RBC 4.49 m/uL (3.80-5.40); RDW 14.2 % (11.5-15.5); WBC 4.8 k/uL (3.8-10.6); WBC (Perox) 4.77
[2016-12-14 12:32] LABS: ALT 35 U/L (9-52); AST 28 U/L (14-36); Alkaline Phosphatase 72 U/L (38-126); Anion Gap 12 mmol/L; Blood Urea Nitrogen 8 mg/dL (7-17); Calcium 10.1 mg/dL (8.4-10.2); Carbon Dioxide 26 mmol/L (22-30); Chloride 105 mmol/L (98-107); Glucose 107 mg/dL (74-99); Magnesium 2.1 mg/dL (1.6-2.3); Non-African American GFR(MDRD) >60 (>60 ml/min/1.73 sqM); Potassium 4.2 mmol/L (3.5-5.1); Sodium 143 mmol/L (137-145); Total Bilirubin 0.7 mg/dL (0.2-1.3); Total Protein 7.9 g/dL (6.3-8.2)
--- NOTE | 2016-12-14 12:32 | XR ---
EXAMINATION TYPE: XR chest 2V DATE OF EXAM: 12/14/2016 12:18 PM COMPARISON: 07/25/2016 HISTORY: Chest pain TECHNIQUE: Frontal and lateral views of the chest are obtained. FINDINGS: There is no focal air space opacity, pleural effusion, or pneumothorax seen. The cardiac silhouette size is within normal limits. The osseous structures are intact. IMPRESSION: No acute cardiopulmonary process.
[2016-12-14 12:35] LABS: INR 1.1 (<1.1); Partial Thromboplastin Time 24.8 sec (22.0-30.0); Prothrombin Time 10.8 sec (9.0-12.0)
[2016-12-14 12:49] LABS: Creatine Kinase 55 U/L (30-135)
[2016-12-14 13:02] LABS: Creatine Kinase MB <0.2 ng/mL (0.0-2.4); Troponin I <0.012 ng/mL (0.000-0.034)
[2016-12-14] MEDS ORDERED: LORazepam 2 MG/ML SYRINGE IV STA (14:22)
[2016-12-14] MEDS ORDERED: NITROGLYCERIN SL TABS 0.4 MG TAB SUBLINGUAL PRN (15:43)
[2016-12-14] MEDS ORDERED: BACLOFEN 10 MG TAB PO STA (16:24)
[2016-12-14] MEDS ORDERED: BUTALB/APAP/CAFF 50-325-40MG TAB PO STA (16:25)
[2016-12-14] MEDS ORDERED: GABAPENTIN 300 MG CAP PO STA (16:26)
[2016-12-14] MEDS ORDERED: HYDROXYCHLOROQUINE SULFATE 200 MG TAB PO STA (16:27)
[2016-12-14] MEDS ORDERED: oxyCODONE-APAP 10-325MG 1 EACH TAB PO STA (16:27)
[2016-12-14] MEDS ORDERED: MORPHINE SULFATE 4 MG/ML SYRINGE IVP PRN (16:48)
[2016-12-14] MEDS ORDERED: ONDANSETRON 4 MG/2 ML VIAL IVP PRN (16:48)
[2016-12-14] MEDS ORDERED: DICLOFENAC SODIUM GEL 100 GM TUBE TOPICAL SCH (18:00)
[2016-12-14] MEDS ORDERED: SENNOSIDES 8.6 MG TAB PO PRN (18:14)
[2016-12-14] MEDS ORDERED: ALBUTEROL NEBULIZED 2.5 MG/3 ML INHALATION PRN (18:14)
[2016-12-14] MEDS ORDERED: TEMAZEPAM 15 MG CAP PO PRN (18:14)
[2016-12-14] MEDS ORDERED: HYDROmorphone 1 MG/ML 1 ML SYRINGE IVP PRN (18:14)
[2016-12-14] MEDS ORDERED: HYDROCORTISONE 2.5% RECTAL CREAM 30 GM TUBE RECTAL PRN (18:14)
[2016-12-14] MEDS ORDERED: NON-FORMULARY DRUG (Butalb/Asprin/Caff 50-325-40mg 1 CAP) PO PRN (18:14)
[2016-12-14] MEDS ORDERED: LIDOCAINE 5% PATCH TOPICAL PRN (18:14)
[2016-12-14] MEDS ORDERED: SYMBICORT 160-4.5 MCG INHALER INHALATION PRN (18:14)
[2016-12-14] MEDS ORDERED: SCOPOLAMINE 1.5MG/72HR PATCH TRANSDERM SCH (18:30)
[2016-12-14 18:43] LABS: Creatine Kinase 50 U/L (30-135)
[2016-12-14 18:56] LABS: Creatine Kinase MB <0.2 ng/mL (0.0-2.4); Troponin I <0.012 ng/mL (0.000-0.034)
[2016-12-14] MEDS: GABAPENTIN 300 MG CAP PO SCH (20:39)
[2016-12-14] MEDS: LORazepam 1 MG TAB PO SCH (20:39)
[2016-12-14] MEDS: HYDROXYCHLOROQUINE SULFATE 200 MG TAB PO SCH (20:41)
[2016-12-14] MEDS: BACLOFEN 10 MG TAB PO SCH (20:41)
[2016-12-14] MEDS: NITROGLYCERIN OINT 1 INCH/GM PACKET TOPICAL SCH (20:43)
[2016-12-14] MEDS: oxyCODONE-APAP 10-325MG 1 EACH TAB PO SCH (20:59)
[2016-12-14] MEDS ORDERED: QUEtiapine 25 MG TAB PO SCH (21:00)
[2016-12-14] MEDS: DICLOFENAC SODIUM GEL 100 GM TUBE TOPICAL PRN (21:02)
[2016-12-14] MEDS: NICOTINE 14MG/24HR PATCH TRANSDERM SCH (21:29)
[2016-12-14] MEDS: ONDANSETRON ODT 4 MG TAB PO PRN (23:05)
[2016-12-14] MEDS: HYDROmorphone 1 MG/ML 1 ML SYRINGE IVP PRN (23:06)
--- NOTE | 2016-12-14 23:19 | HP ---
DATE OF ADMISSION: 12/14/2016 CHIEF COMPLAINT: Chest pain. HISTORY OF PRESENT ILLNESS: This 46 -year-old woman with a past medical history of asthma, fibromyalgia, hypertension, rheumatoid arthritis, multiple autoimmune disease and section, anxiety, depression, being followed by Dr. Wing in the outpatient setting also reporting significant stress. In July last year, the patient had a cardiac catheterization, which showed normal coronaries but however, ejection fraction found to be 34% and stress-induced reversible changes and possible takotsubo cardiomyopathy was considered. There is no history of fever, rigor or chills. No history of headache, loss of consciousness or seizures. Currently, the patient is complaining of chest pain, which is felt in the anterior part of the chest. The patient also had pain radiating from the left arm upwards. The chest tightness was almost like somebody squeezing the chest according to her. There was some associated significant sweating also. The patient came to [facility] and was admitted for further evaluation and treatment. The initial labs, troponins are negative. Initially EKG showed no acute changes and the patient was admitted for further evaluation and treatment. There is no history of fever, rigors or chills. Past medical history of recent cardiac catheterization, asthma, fibromyalgia, hypertension, rheumatoid arthritis, history of section, history of cardiac catheterization. Medications prior to admission: 1. Oxycodone 10 mg t.i.d. p.r.n. 2. Tofacitinib 11 mg p.o. daily. 3. Senna 8.6 mg daily p.r.n. 4. Scopolamine 1.5 mg q.72h. 5. Seroquel 25 mg q.h.s. 6. Zofran ODT 2 to 4 mg q.8 p.r.n. 7. Methotrexate 20 mg subcu Tuesday. 8. Lidocaine patch 2 to 3 patches topically b.i.d. p.r.n. 9. Xalatan 5% one application t.i.d. p.r.n. 10. Ativan 2 mg q.8 p.r.n. 11. Plaquenil 200 mg p.o. b.i.d. 12. Proctosol HC one application daily p.r.n. 13. Neurontin 600 mg p.o. daily. 14. Voltaren gel 4 grams q.i.d. p.r.n. 16. Fiorinal one caps q.4 p.r.n. 17. Symbicort 160/4.5, 2 puffs b.i.d. p.r.n. 18. Lioresal 10 mg p.o. t.i.d. 19. Pro-Air HFA 2 puffs q.i.d. p.r.n. ALLERGIES: ENBREL, GLUTEN, LATEX, MECLIZINE, METHOCARBAMOL, SIMVASTATIN, SULFA. FAMILY HISTORY: History of CVA, TIA, diabetes mellitus type 2, history of myocardial infarction, schizophrenia, heart problems. SOCIAL HISTORY: History of smoking. Continued ongoing. History of alcohol intake. REVIEW OF SYSTEMS: ENT: No diminishing hearing or diminished vision. CARDIOVASCULAR: As mentioned earlier. RESPIRATORY: As mentioned earlier. GI: No nausea. : No dysuria. Nervous system: As mentioned earlier. ALLERGY/IMMUNOLOGY: As mentioned earlier. HEMATOLOGY/ONCOLOGY: No history of anemia. ENDOCRINE: As mentioned earlier. CONSTITUTIONAL: As mentioned earlier. DERMATOLOGY: Negative. RHEUMATOLOGY: as mentioned earlier. PSYCHIATRY: As mentioned earlier. PHYSICAL EXAMINATION: The patient is alert and oriented times three. Pulse 69, blood pressure 105/71, respiratory rate 18, temperature normal. Pulse ox 98% on 2 liters. HEENT: Conjunctivae normal. Oral mucosa moist. NECK: No jugular venous distention. No carotid bruit. No lymph node enlargement. CARDIOVASCULAR SYSTEM: S1, S2 muffled. No murmur. No thrills. No S3, no S4. RESPIRATORY: Breath sounds diminished at the bases. No rhonchi, no crackles. ABDOMEN: Soft, nontender. No mass palpable. Legs: No edema. No swelling. Nervous system: Higher function as mentioned earlier. Moves all four limbs. No focal motor, or sensory deficits. LYMPHATICS: No lymph nodes palpable in the neck, axillae or groin. SKIN: No ulcer, rash or bleeding. LABS: CBC within normal limits. Glucose 107. ASSESSMENT: 1. Chest pain, possible unstable angina. 2. History of recent severely depressed ejection fraction but 35% possibly indicating takotsubo syndrome. 3. History of recent cardiac catheterization with normal coronary arteries. 4. Increased random blood sugar. 5. Multiple autoimmune disorders. 6. Asthma. 7. Fibromyalgia. 8. Hypertension. 9. Rheumatoid arthritis. 10. History of migraines. 11. History of carpal tunnel syndrome. 12. History of lupus. 13. History of ovarian cyst. 14. History of seizures. 15. History of white matter changes in the recent MRA scan. 16. History of Methicillin-resistant Staph aureus. 17. History of degenerative joint disease. 18. History of cardiac catheterization. 19. Anxiety, depression, not otherwise specified. 20. History of nicotine dependency. 21. History of THC. 22. FULL CODE. RECOMMENDATIONS AND DISCUSSION: In this 46-year-old woman who presented with multiple complex medical issues, we will monitor the patient closely. Continue the current medications. Continue symptomatic treatment. Otherwise at this time, I recommend rule out myocardial infarction. Unstable angina protocol. Cardiology consultation. Repeat a 2-D echo with Doppler to follow up on ejection fraction. Otherwise, home medications will be continued. Prognosis guarded because of multiple complex medical issues. Discussed with the patient who understands and agrees. Further recommendations to follow. A copy being forwarded to Dr. Wing who is the primary care doctor. We will repeat troponins and rule out the possibility of myocardial infarction. TATYANA
[2016-12-15 00:44] LABS: Creatine Kinase 48 U/L (30-135)
[2016-12-15] MEDS: LORazepam 1 MG TAB PO SCH ×2 (00:52→10:07)
[2016-12-15] MEDS: MORPHINE SULFATE 2 MG/ML SYRINGE IVP PRN ×2 (00:52→12:53)
[2016-12-15 00:57] LABS: Creatine Kinase MB <0.2 ng/mL (0.0-2.4); Troponin I <0.012 ng/mL (0.000-0.034)
[2016-12-15 02:21] LABS: Appearance,Urine Clear (Clear); Bilirubin,Urine Negative (Negative); Glucose,Urine (UA) Negative (Negative); Ketones,Urine Negative (Negative); Leukocyte Esterase,Urine Negative (Negative); Nitrite,Urine Negative (Negative); PH, Urine 5.5 (5.0-8.0); Protein,Urine Negative (Negative); Specific Gravity,Urine 1.002 (1.001-1.035); UA Billing (MACRO vs. MICRO) CHEM; Urobilinogen,Urine <2.0 mg/dL (<2.0)
[2016-12-15] MEDS: NITROGLYCERIN OINT 1 INCH/GM PACKET TOPICAL SCH ×3 (03:04→15:23)
[2016-12-15] MEDS: HYDROmorphone 1 MG/ML 1 ML SYRINGE IVP PRN (04:37)
[2016-12-15 07:01] LABS: Glucose,Whole Blood 114 mg/dL (75-99)
[2016-12-15] MEDS ORDERED: PANTOPRAZOLE 40 MG TABLET PO SCH (07:30)
[2016-12-15 07:36] LABS: Anion Gap 14 mmol/L; Blood Urea Nitrogen 10 mg/dL (7-17); Calcium 9.5 mg/dL (8.4-10.2); Carbon Dioxide 21 mmol/L (22-30); Chloride 107 mmol/L (98-107); Cholesterol 198 mg/dL (<200); Glucose 93 mg/dL (74-99); HDL Cholesterol 54 mg/dL (40-60); Non-African American GFR(MDRD) >60 (>60 ml/min/1.73 sqM); Potassium 4.1 mmol/L (3.5-5.1); Sodium 142 mmol/L (137-145); Triglycerides 158 mg/dL (<150)
[2016-12-15] MEDS ORDERED: LIDOCAINE 4% CREAM 5 GM TUBE TOPICAL PRN (07:36)
[2016-12-15 08:09] LABS: Basophils # (A) 0.1 k/uL (0-0.2); Basophils % (A) 1 %; CH 33.3; CHCM 33.8; Eosinophils # (A) 0.1 k/uL (0-0.7); Eosinophils % (A) 1 %; HDW 2.77; HGB 14.8 gm/dL (11.4-16.0); Luc % (Auto) 2; Lymphocytes # (A) 2.4 k/uL (1.0-4.8); Lymphocytes % (A) 53 %; MCHC 34.4 g/dL (31.0-37.0); MCV 98.8 fL (80.0-100.0); Mean Platelet Volume 8.3; Monocytes # (A) 0.4 k/uL (0-1.0); Monocytes % (A) 8 %; Neutrophils # (A) 1.6 k/uL (1.3-7.7); Neutrophils % (A) 35 %; RBC 4.35 m/uL (3.80-5.40); RDW 14.2 % (11.5-15.5); WBC 4.6 k/uL (3.8-10.6); WBC (Perox) 4.48
[2016-12-15 08:52] LABS: Manual Review Performed
[2016-12-15] MEDS ORDERED: ASPIRIN 325 MG TAB PO SCH (09:00)
[2016-12-15] MEDS ORDERED: LORATADINE 10 MG TAB PO SCH (09:00)
[2016-12-15] MEDS ORDERED: TOFACITINIB CITRATE 11 MG PO SCH (09:00)
--- NOTE | 2016-12-15 09:05 | P.CRDCN ---
History of Present Illness Consult date: 12/15/16 Chief complaint: Chest discomfort History of present illness: This is a pleasant 46-year-old female patient with a past medical history significant for chronic pain presented to the hospital complaining of chest discomfort. She describes chest discomfort, in the mid of the chest, as a sharp kind of discomfort. The patient has discomfort all over her body. She was ruled out for acute coronary event. The EKG showed sinus rhythm without any significant changes. The cardiac enzymes came in to be unremarkable. Please note that the patient underwent a heart catheterization in July 2016 and that showed no significant CAD. From the cardiovascular standpoint of view, the patient can be discharged home. She sees Dr. HERB Valentine in the office. Past Medical History Past Medical History: Asthma, Fibromyalgia, Hypertension, Rheumatoid Arthritis ( RA) Additional Past Medical History / Comment(s): stress test,endometriosis, migraine, carpel tunnel, lupus, ovarian cysts, per pt dr said poss seizure or stroke 2 yrs ago but not confirmed, interstitial cystitis,chronic pain syndrome sees at pain clinic,past fall/concussion/whiplash, " benign postual vertigo, "did'nt past saccade test or optokinetic test needs to f/u neurologist". w/ testing had iv dye/fluid went into rt thumb,told if swelling does'nt go down to see at [facility]" BOARDERLINE DM NO MEDS AND NOT CHECK BS History of Any Multi-Drug Resistant Organisms: MRSA Date of last positivie culture/infection: 2011 MDRO Source:: back Past Surgical History: Appendectomy, Section, Heart Catheterization, Hysterectomy, Tubal Ligation Additional Past Surgical History / Comment(s): c- section x 2, throat surgery, jimena renal stents with removal, ovarian cyst removal, heart cath-rt radial used Past Anesthesia/Blood Transfusion Reactions: No Reported Reaction Past Psychological History: Anxiety, Depression Additional Psychological History / Comment(s): admits to some depression but not thoughts of harming self. lives alone but son home for summer.on disabilty. no outside services, has a cane uses as needed. Smoking Status: Current every day smoker Past Alcohol Use History: Occasional Additional Past Alcohol Use History / Comment(s): started smoking 3 years ago-4 cig /day Past Drug Use History: Marijuana Additional Drug Use History / Comment(s): uses a houka pipe rare use - Past Family History Father Family Medical History: CVA/TIA, Diabetes Mellitus, Myocardial Infarction (SC) Mother Family Medical History: CVA/TIA, Rheumatoid Arthritis (RA) Additional Family Medical History / Comment(s): Schizo, heart problems Medications and Allergies Home Medications Medication Instructions Recorded Confirmed Type Hydroxychloroquine Sulfate 200 mg PO BID 12/17/13 12/14/16 History [Plaquenil] Gabapentin [Neurontin] 600 mg PO QID 12/21/13 12/14/16 History LORazepam [Ativan] 2 mg PO Q8HR 02/16/16 12/14/16 History Albuterol Sulfate [Proair Hfa] 2 puff INHALATION RT-QID PRN 07/25/16 12/14/16 History Budesonide/Formoterol Fumarate 2 puff INHALATION RT-BID PRN 07/25/16 12/14/16 History [Symbicort 160-4.5 Mcg Inhaler] Diclofenac Sodium [Voltaren Gel] 4 gram TOPICAL QID PRN 07/25/16 12/14/16 History Lidocaine 5% Oint [Xylocaine 5% 1 applic TOPICAL QID PRN 07/25/16 12/14/16 History Oint] Lidocaine 5% Patch [Lidoderm 5% 2 - 3 patch TOPICAL Q12H PRN 07/25/16 12/14/16 History Patch] Ondansetron [Zofran ODT] 2 - 4 mg PO Q8HR PRN 07/25/16 12/14/16 History oxyCODONE-APAP 10-325MG [Percocet 1 tab PO TID 07/25/16 12/14/16 History 10-325 mg] Sennosides [Senna] 8.6 mg PO DAILY PRN 09/28/16 12/14/16 History Methotrexate Injection 25mg/Ml 20 mg SQ WE 12/01/16 12/14/16 History Scopolamine 1.5MG/72Hr Patch 1 patch TRANSDERM Q72H 12/01/16 12/14/16 History [Transderm-Scop 1.5MG/72Hr Patch] Tofacitinib Citrate [Xeljanz Xr] 11 mg PO DAILY 12/01/16 12/14/16 History Baclofen [Lioresal] 10 mg PO TID 12/14/16 12/14/16 History Butalb/Asprin/Caff 50-325-40Mg 1 cap PO Q4HR PRN 12/14/16 12/14/16 History [Fiorinal 50-325-40 MG] Cetirizine HCl 10 mg PO DAILY 12/14/16 12/14/16 History Hydrocortisone Pr Cream 1 applic RECTAL DAILY PRN 12/14/16 12/14/16 History [Proctosol-Hc 2.5%] QUEtiapine FUMARATE [SEROquel] 25 mg PO HS 12/14/16 12/14/16 History Fluticasone Nasal [place] [Flonase 1 spray EA NOSTRIL DAILY 12/15/16 12/15/16 History Nasal [place]] Folic Acid 1 mg PO DAILY 12/15/16 12/15/16 History Furosemide [Lasix] 20 mg PO W/LUNCH PRN 12/15/16 12/15/16 History Furosemide [Lasix] 40 mg PO DAILY 12/15/16 12/15/16 History Allergies Allergy/AdvReac Type Severity Reaction Status Date / Time latex Allergy Severe Unknown Verified 12/14/16 18:04 adhesive Allergy Rash/Hives Verified 12/14/16 12:20 enbucrilate Allergy Rash/Hives Verified 12/14/16 12:20 etanercept [From Enbrel] Allergy Unknown Verified 12/14/16 16:55 gluten Allergy Unknown Verified 12/14/16 12:20 meclizine [From Antivert] Allergy Anaphylaxis Verified 12/14/16 18:05 methocarbamol Allergy Unknown Verified 12/14/16 16:55 simvastatin [From Zocor] Allergy Unknown Verified 12/14/16 12:20 Sulfa (Sulfonamide Allergy Unknown Verified 12/14/16 12:20 Antibiotics) Iodinated Contrast Media - AdvReac Anaphylaxis Verified 12/14/16 18:07 Oral and Physical Exam Vitals: Vital Signs Temp Pulse Pulse Pulse Resp BP BP 12/15/16 08:31 88 12/15/16 08:20 84 12/15/16 08:00 98.0 F 76 12 105/63 12/15/16 04:00 97.9 F 84 18 99/72 12/15/16 00:00 97.4 F L 85 18 110/70 12/14/16 20:00 15 12/14/16 19:33 96.9 F L 74 15 117/65 12/14/16 18:36 99/62 12/14/16 16:31 98.2 F 70 18 112/73 12/14/16 15:54 98.2 F Pulse Ox 12/15/16 08:31 12/15/16 08:20 98 12/15/16 08:00 98 12/15/16 04:00 98 12/15/16 00:00 98 12/14/16 20:00 12/14/16 19:33 99 12/14/16 18:36 12/14/16 16:31 98 12/14/16 15:54 Intake and Output 12/14/16 12/15/16 12/15/16 22:59 06:59 14:59 Intake Total 200 Balance 200 Intake: Oral 200 Other: Voiding Method Toilet Toilet # Voids 4 - Constitutional General appearance: no acute distress - Respiratory Respiratory: bilateral: CTA - Cardiovascular Rhythm: regular Heart sounds: normal: S1, S2 Results 12/15/16 06:49 12/15/16 06:49 Cardiac Enzymes 12/14/16 12/14/16 Range/Units 18:02 23:41 CK-MB (CK-2) <0.2 <0.2 (0.0-2.4) ng/mL Troponin I <0.012 <0.012 (0.000-0.034) ng/mL Lipids 12/15/16 Range/Units 06:49 Triglycerides 158 H (<150) mg/dL Cholesterol 198 (<200) mg/dL HDL Cholesterol 54 (40-60) mg/dL CBC 12/15/16 Range/Units 06:49 WBC 4.6 (3.8-10.6) k/uL RBC 4.35 (3.80-5.40) m/uL Hgb 14.8 (11.4-16.0) gm/dL Hct 43.0 (34.0-46.0) % Plt Count 196 (150-450) k/uL Comprehensive Metabolic Panel 12/15/16 Range/Units 06:49 Sodium 142 (137-145) mmol/L Potassium 4.1 (3.5-5.1) mmol/L Chloride 107 (98-107) mmol/L Carbon Dioxide 21 L (22-30) mmol/L BUN 10 (7-17) mg/dL Creatinine 0.70 (0.52-1.04) mg/dL Glucose 93 (74-99) mg/dL Calcium 9.5 (8.4-10.2) mg/dL Current Medications Generic Name Dose Route Start Last Admin Trade Name Freq PRN Reason Stop Dose Admin Albuterol Sulfate 2.5 mg 12/14/16 18:14 12/15/16 08:17 Ventolin Nebulized INHALATION 2.5 mg RT-QID PRN Administration Shortness Of Breath Aspirin 325 mg 12/15/16 09:00 Aspirin PO DAILY [facility] Baclofen 10 mg 12/14/16 22:00 12/14/16 20:41 Lioresal PO 10 mg TID CHRIS Administration Budesonide/Formoterol Fumarate 2 puff 12/14/16 18:14 12/15/16 08:17 Symbicort 160-4.5 Mcg Inhaler INHALATION 2 puff RT-BID PRN Administration Shortness Of Breath Diclofenac Sodium 4 gm 12/14/16 18:14 12/14/16 21:02 Voltaren Gel TOPICAL 4 gm QID PRN Administration [employer] Gabapentin 600 mg 12/14/16 22:00 12/14/16 20:39 Neurontin PO 600 mg QID [facility] Administration Hydrocortisone 1 applic 12/14/16 18:14 Proctosol-Hc 2.5% RECTAL DAILY PRN Hemorrhoids Hydromorphone HCl 0.5 mg 12/14/16 21:45 12/15/16 04:37 Dilaudid IVP 0.5 mg Q4HR PRN Administration Severe Pain Hydroxychloroquine Sulfate 200 mg 12/14/16 21:00 12/14/16 20:41 Plaquenil PO 200 mg BID [facility] Administration Lidocaine 2 - 3 patch 12/14/16 18:14 Lidoderm TOPICAL Q12H PRN Pain Lidocaine HCl 1 applic 12/15/16 07:36 Lmx 4 TOPICAL QID PRN Pain Lorazepam 2 mg 12/14/16 18:15 12/15/16 00:52 Ativan PO 2 mg Q8HR CHRIS Administration Methotrexate Sodium 20 mg 12/15/16 10:00 Methotrexate 50 Mg/2 Ml Vial SQ WE [facility] Morphine Sulfate 4 mg 12/14/16 16:48 12/14/16 16:48 Morphine Sulfate (Inj) IVP 4 mg ONCE PRN Administration Pain Morphine Sulfate 2 mg 12/14/16 21:45 12/15/16 00:52 Morphine Sulfate (Inj) IVP 2 mg Q4H PRN Administration Pain/Discomfort Nicotine 1 patch 12/14/16 20:00 12/14/16 21:29 Habitrol 14mg/24hr Patch TRANSDERM 1 patch DAILY CHRIS Administration Nitroglycerin 1 inch 12/14/16 18:00 12/15/16 05:10 Nitro-Bid Oint TOPICAL Not Given Q6HR [facility] Nitroglycerin 0.4 mg 12/14/16 15:43 Nitrostat SUBLINGUAL Q5M PRN Chest Pain Non-Formulary Medication 11 mg 12/15/16 09:00 Tofacitinib Citrate [Xeljanz Xr] PO DAILY [facility] Ondansetron HCl 4 mg 12/14/16 16:48 12/14/16 16:48 Zofran IVP 4 mg ONCE PRN Administration Nausea And Vomiting Ondansetron HCl 2 - 4 mg 12/14/16 18:14 12/14/16 23:05 Zofran Odt PO 4 mg Q8HR PRN Administration Nausea And/Or Vomiting Oxycodone/Acetaminophen 1 each 12/14/16 22:00 12/14/16 20:59 Percocet 10-325 PO Not Given TID [facility] Pantoprazole Sodium 40 mg 12/15/16 07:30 Protonix PO AC-BRKFST [facility] Quetiapine Fumarate 25 mg 12/14/16 21:00 12/14/16 20:41 Seroquel PO 25 mg HS [facility] Administration Scopolamine 1 patch 12/14/16 18:30 12/14/16 20:38 Transderm-Scop 1.5mg/72hr Patch TRANSDERM 1 patch Q72H [facility] Administration Senna 8.6 mg 12/14/16 18:14 Senokot PO DAILY PRN Constipation Sodium Chloride 10 ml 12/14/16 21:00 12/14/16 20:44 Saline Flush IV Not Given BID [facility] Temazepam 15 mg 12/14/16 18:14 Restoril PO HS PRN Insomnia Intake and Output 12/14/16 12/15/16 12/15/16 22:59 06:59 14:59 Intake Total 200 Balance 200 Intake: Oral 200 Other: Voiding Method Toilet Toilet # Voids 4 12/15/16 06:49 12/15/16 06:49 Assessment and Plan Plan: Assessment #1 atypical chest discomfort Plan #1 the patient was ruled out for acute coronary event #2 she had a heart cath in July 2016 showed normal coronaries #3 the patient can be discharged home
[2016-12-15 09:55] VITALS: BMI 25.6
[2016-12-15] MEDS ORDERED: METHOTREXATE SODIUM (PF) 25 MG/ML 2 ML VIAL SQ SCH (10:00)
[2016-12-15] MEDS: HYDROXYCHLOROQUINE SULFATE 200 MG TAB PO SCH (10:07)
[2016-12-15] MEDS: GABAPENTIN 300 MG CAP PO SCH (10:07)
[2016-12-15] MEDS: BACLOFEN 10 MG TAB PO SCH (10:07)
[2016-12-15] MEDS: oxyCODONE-APAP 10-325MG 1 EACH TAB PO SCH (10:08)
[2016-12-15] MEDS: NICOTINE 14MG/24HR PATCH TRANSDERM SCH (10:10)
--- NOTE | 2016-12-15 12:20 | ECHOF ---
Referral Reason:chf MEASUREMENTS -------- HEIGHT: 157.5 cm WEIGHT: 63.5 kg BP: 99/72 RVIDd: 2.3 cm (< 3.3) IVSd: 1.1 cm (0.6 - 1.1) LVIDd: 4.0 cm (3.9 - 5.3) LVPWd: 1.0 cm (0.6 - 1.1) IVSs: 1.5 cm LVIDs: 2.5 cm LVPWs: 1.3 cm LA Diam: 2.0 cm (2.7 - 3.8) LAESV Index (A-L): 9.94 ml/m Ao Diam: 2.8 cm (2.0 - 3.7) AV Cusp: 2.0 cm (1.5 - 2.6) MV EXCURSION: 22.126 mm (> 18.000) MV EF SLOPE: 99 mm/s (70 - 150) EPSS: 0.5 cm MV E Michael: 0.88 m/s MV DecT: 257 ms MV A Michael: 0.75 m/s MV E/A Ratio: 1.17 RAP: 5.00 mmHg RVSP: 24.79 mmHg FINDINGS -------- Sinus rhythm. This was a technically good study. The left ventricular size is normal. There is borderline concentric left ventricular hypertrophy. Overall left ventricular systolic function is normal with, an EF between 55 - 60 %. The right ventricle is normal in size. Normal LA size by volume 22+/-6 ml/m2. The right atrium is normal in size. Normal AOV with mild sclerosis and no regurgitation. There is trace to mild mitral regurgitation. Mild tricuspid regurgitation present. Right ventricular systolic pressure is normal at < 35 mmHg. Trace/mild (physiologic) pulmonic regurgitation. The aortic root size is normal. Normal inferior vena cava with normal inspiratory collapse consistent with estimated right atrial pressure of 5 mmHg. The pericardium is normal. CONCLUSIONS -------- 1. Sinus rhythm. 2. There is trace to mild mitral regurgitation. 3. Mild tricuspid regurgitation present. 4. Right ventricular systolic pressure is normal at < 35 mmHg. 5. Trace/mild (physiologic) pulmonic regurgitation. 6. The aortic root size is normal. 7. Normal inferior vena cava with normal inspiratory collapse consistent with estimated right atrial pressure of 5 mmHg. 8. The pericardium is normal. 9. This was a technically good study. 10. The left ventricular size is normal. 11. There is borderline concentric left ventricular hypertrophy. 12. Overall left ventricular systolic function is normal with, an EF between 55 - 60 %. 13. The right ventricle is normal in size. 14. Normal LA size by volume 22+/-6 ml/m2. 15. The right atrium is normal in size. 16. Normal AOV with mild sclerosis and no regurgitation. NDT INSPECTOR: Maria Victoria Hernandez RDCS
[2016-12-15] MEDS: ONDANSETRON ODT 4 MG TAB PO PRN (12:46)
[2016-12-15 12:55] VITALS: BP 102/67; PULSE 71; RESP 18; TEMP 97.9
[2016-12-15] MEDS: DICLOFENAC SODIUM GEL 100 GM TUBE TOPICAL PRN (12:56)
--- NOTE | 2016-12-16 11:05 | DS ---
DATE OF ADMISSION: 12/14/2016 DATE OF DISCHARGE: 12/15/2016 FINAL DIAGNOSES: 1. Chest pain, myocardial infarction ruled out, possibly musculoskeletal. 2. History of recent cardiac catheterization, normal coronary arteries. 3. Normal ejection fraction on the 2-D echo. 4. Increased random blood sugar. 5. Multiple autoimmune disorder history. 6. History of asthma. 7. History of fibromyalgia. 8. History of hypertension. 9. History of rheumatoid arthritis. 10. History of migraines. 11. History of carpal tunnel syndrome. 12. History of lupus. 13. History of ovarian cyst. 14. History of seizures. 15. History of white matter changes on the recent MRI scan. 16. History of methicillin-resistant Staphylococcus aureus. 17. History of degenerative joint disease. 18. History of cardiac catheterization. 19. Anxiety and depression, not otherwise specified. 20. History of nicotine dependence. 21. History of THC. 22. FULL CODE. DISCHARGE DISPOSITION: The patient will be discharged in a stable condition with guarded prognosis. HISTORY OF PRESENT ILLNESS: This 46-year-old woman with a past medical history of multiple medical problems followed by Dr. Wing in the outpatient setting was admitted with chest pain, myocardial infarction ruled out from the cardiology point of view. Dr. Vaughan saw the patient. The 2-D echo showed normal ejection fraction. Dr. Vaughan recommended discharge home and continued followup in the outpatient setting to be follow up with Dr. Wing. Discussed with Dr. Wing and the patient. consider tertiary care evaluation. On exam, vitals are stable. CARDIOVASCULAR SYSTEM: S1, S2 muffled. ABDOMEN: Soft. NERVOUS SYSTEM: No focal deficits. DISCHARGE ADVICE: 1. Diet is cardiac. 2. Activity limited until followup. 3. Follow up with Dr. Wing in 2 to 3 days. 4. Follow up with Cardiology as recommended. Medications are: 1. Methotrexate as before. 2. Albuterol, that is ProAir, 2 puffs q.i.d. p.r.n. 3. Lioresal, Baclofen, 10 mg p.o. t.i.d. 4. Symbicort 2 puffs b.i.d. 5. fiornal one cap q.4 hour p.r.n. 6. Cetirizine 10 mg p.o. daily. 7. Voltaren topical. 8. Flonase one spray each nostril. 9. Folic acid 1 mg p.o. daily. 10. Lasix 20 mg with lunch and Lasix 40 mg p.o. daily. 11. Neurontin 600 mg p.o. q.i.d. 12. Hydrocortisone cream p.r.n. 13. Plaquenil 200 mg p.o. b.i.d. 14. Ativan 2 mg p.o. q.8 p.r.n. 15. Xylocaine 5% topically. 16. Lidoderm patch topical. 17. Habitrol 14 daily. 18. Zofran 2 to 4 q.8 p.r.n. 19. Seroquel 25 mg q.h.s. 20. Scopolamine patch 1.5 mg q.72 hours. 21. Senna 8.6 mg daily. 22. Tofacitinib 11 mg daily. 23. Oxycodone 10 mg p.o. t.i.d. Once again, the patient will be discharged in a stable condition with guarded prognosis. MTDD
== END 2016-12-15 15:40 | disposition home or self-care (01) ==
LOC: EC 11:46 → 3OBS 15:43
PROVIDERS: ADMIT Hospitalist; ATTEND Hospitalist
DX: R07.89 Other chest pain (principal); R73.9 Hyperglycemia, unspecified; J45.909 Unspecified asthma, uncomplicated; M79.7 Fibromyalgia; I10 Essential (primary) hypertension; M06.9 Rheumatoid arthritis, unspecified; G43.909 Migraine, unspecified, not intractable, without status migrainosus; G56.00 Carpal tunnel syndrome, unspecified upper limb; M32.9 Systemic lupus erythematosus, unspecified; N83.209 Unspecified ovarian cyst, unspecified side; R56.9 Unspecified convulsions; Z86.14 Personal history of Methicillin resistant Staphylococcus aureus infection; M19.90 Unspecified osteoarthritis, unspecified site; F17.210 Nicotine dependence, cigarettes, uncomplicated; F41.9 Anxiety disorder, unspecified; F32.9 Major depressive disorder, single episode, unspecified; G89.4 Chronic pain syndrome; Z79.899 Other long term (current) drug therapy; Z79.1 Long term (current) use of non-steroidal anti-inflammatories (NSAID); Z79.891 Long term (current) use of opiate analgesic; Z91.040 Latex allergy status; Z88.2 Allergy status to sulfonamides; Z88.8 Allergy status to other drugs, medicaments and biological substances; Z91.018 Allergy to other foods; Z91.041 Radiographic dye allergy status; Z91.048 Other nonmedicinal substance allergy status; Z82.49 Family history of ischemic heart disease and other diseases of the circulatory system; Z83.3 Family history of diabetes mellitus; Z82.3 Family history of stroke; R73.03 Prediabetes
CPT/HCPCS: 96375; 96376 ×2; 96374; 99285; 36415; 94640 ×2; 94760; 93005; 93306; 85379; 80061; 80053; 80048; 82550; 82553; 83735; 84484; 85025 ×2; 85610; 85730; 81003; 80306; 71020; G0378 ×2; S4990 ×2; J2060; J2270 ×2; J2405; J1170 ×2

== ENCOUNTER → 2016-12-22 | Outpatient (CLI) | payer MEDICARE, BC ==
--- NOTE | 2016-12-23 08:30 | USB ---
Reason for exam: clinical finding. History: Patient is postmenopausal. Family history of breast cancer in 2 maternal aunts at age 40. Took hormonal contraceptives for 10 months. Taking estrogen for 2 years. Indicated problem(s): lump or thickening in the left breast. Physical Findings: Nurse Summary: Bilateral nodularity. All soft movable (nurse ts). US Breast LT Left breast ultrasound includes all four quadrants, the retroareolar region and axilla. Finding demonstrate a 3 x 2 x 3 mm too small to characterize lesion at 12 o'clock, a 6 x 2 x 5mm oval, mixed, hypoechoic lesion at 3 o'clock, a 5 x 3 x 2mm oval, mixed, hypoechoic lesion at 5 o'clock, slightly larger with abnormal MRI and palpable abnormality, and a 5 x 3 x 3mm oval, cystic lesion at 10 o'clock. These results were verbally communicated with the patient and result sheet given to the patient on 12/22/16. ASSESSMENT: Suspicious, BI-RAD 4 RECOMMENDATION: Ultrasound core biopsy of the left breast. Called Dr. Wing with mammographic findings and has scheduled an appointment for the patient for 01/13/17 at 10:[address] Mantilla. Biopsy scheduled for 01/05/17 at 12:20. PRELIMINARY REPORT CALLED AND FAXED TO DR. MANTILLA ON 12/23/16 AT 300/TP.
== END | disposition home or self-care (01) ==
LOC: RADUSWWP 09:08
PROVIDERS: ATTEND Family Medicine
DX: N63 Unspecified lump in breast (principal); R92.8 Other abnormal and inconclusive findings on diagnostic imaging of breast

== ENCOUNTER → 2016-12-29 | Day surgery (SDC) | payer MEDICARE, BC ==
[~2016-12-29] MED LIST: BACITRACIN OINT 1 EACH PACKET TOPICAL ONE; LIDOCAINE 1% INJ 10MG/ML (20 ML MDV) ONE
--- NOTE | 2016-12-29 08:58 | USB ---
EXAMINATION TYPE: US breast needle core LT DATE OF EXAM: 12/29/2016 8:52 AM COMPARISON: Ultrasound 12/22/2016 HISTORY: 5:00 left breast subcentimeter nodule measuring approximately 5 mm requested for biopsy. FINDINGS: The procedure is discussed with the patient, the risks, complications , benefits and alternatives, were discussed and any questions were answered. Informed consent was obtained. The patient is placed prone on the CT table, prepped and draped in the usual sterile fashion. Utilizing a 14-gauge needle access into the 5 mm 5:00 nodule was achieved with 5 passes performed. Surgical clip placed post procedure. All elements of maximal barrier and sterile technique were utilized. The patient remained stable throughout the procedure with no immediate postprocedural complication. IMPRESSION: 1. Successful ultrasound guided core biopsy 5:00 left breast nodule with pathology pending. Pathology Results: Benign BREAST, LEFT, ULTRASOUND GUIDED CORE BIOPSY: AREAS OF DENSE HISTOCYSTIC INFLAMMATION WITH FAT NECROSIS, FIBROSIS AND FIBROPLASIA. BACKGROUND FIBROCYSTIC CHANGE. Recommendation Follow up mammogram of the left breast in 6 months. (Manage patient clinically with regards to any suspicious nipple discharge. If blood discharge spontaneous and localized to a single pore on the nipple, ductogram can be considered) MTDD
== END ==
LOC: RADUSWWP 07:21
PROVIDERS: ATTEND Surgery
DX: N64.1 Fat necrosis of breast (principal); N60.32 Fibrosclerosis of left breast; N64.89 Other specified disorders of breast; Z88.2 Allergy status to sulfonamides; Z88.8 Allergy status to other drugs, medicaments and biological substances; Z91.041 Radiographic dye allergy status
CPT/HCPCS: 88305; 19083; J2001

== ENCOUNTER → 2017-01-04 | Outpatient (CLI) | payer MEDICARE, BC ==
--- NOTE | 2017-01-04 13:52 | MR ---
EXAMINATION TYPE: MR brain wo/w con DATE OF EXAM: 01/04/2017 COMPARISON: 10/28/2016 HISTORY: Headaches CONTRAST: Performed utilizing 13 mL intravenous Omniscan gadolinium contrast. Patient received Omni scan and had no reported problems. TECHNIQUE: Multiplanar, multiecho imaging on a 3.0 Kathleen magnet is performed through the brain. Stud y is performed within 24 hours of arrival to the hospital. The craniovertebral junction is normal. The pituitary is normal. Diffusion-weighted imaging is performed. No abnormal hyperintensity is present to suggest an acute i ntracranial infarct or acute ischemic change. There are a few scattered punctate nonspecific deep white matter hyperintensities on the inversion re covery weighted sequences. Findings are nonspecific but could be related to mild microvascular ischem ic change or gliosis. Ventricles and sulci are appropriate for the patient age. No abnormal enhancement is evident. IMPRESSIONS: 1. Few punctate subcortical and deep white matter changes which are nonspecific but could be related to chronic white matter ischemic changes. These appear stable from October 2016.
== END | disposition home or self-care (01) ==
LOC: RADMRIMAIN 11:01
PROVIDERS: ATTEND Psychiatry & Neurology Pain Medicine
DX: R90.82 White matter disease, unspecified (principal); Z88.2 Allergy status to sulfonamides; Z79.899 Other long term (current) drug therapy
CPT/HCPCS: 70553; A9579

== ENCOUNTER 2017-07-30 04:43 | Emergency (ER) | payer MEDICARE, BC ==
--- NOTE | 2017-07-30 05:18 | ED ---
General Adult HPI - General Chief complaint: Recheck/Abnormal Lab/Rx Stated complaint: Possible low potassium Time Seen by Provider: 07/30/17 04:51 Source: patient Mode of arrival: ambulatory Limitations: no limitations - History of Present Illness Initial comments: This patient's 47-year-old woman presenting to be evaluated for which she suspects his hypokalemia. She states that she has been getting bilateral leg and forearm cramps that she states she had with a previous episode of hypokalemia. She states that she does take Lasix periodically for edema and she has been using this and is afraid her potassium is low. She does take an oral potassium supplement. Patient denies other symptoms. The cramps are not unilateral. She has not had weakness or numbness. -: hour(s) Quality: other (Spasms) Consistency: intermittent Improves with: none Worsens with: none Associated Symptoms: other (Muscle spasms) Treatments Prior to Arrival: none - Related Data Home Medications Medication Instructions Recorded Confirmed Hydroxychloroquine Sulfate 200 mg PO BID 12/17/13 07/30/17 [Plaquenil] Gabapentin [Neurontin] 600 mg PO QID 12/21/13 07/30/17 LORazepam [Ativan] 2 mg PO Q8HR 02/16/16 07/30/17 Albuterol Sulfate [Proair Hfa] 2 puff INHALATION RT-QID PRN 07/25/16 07/30/17 Budesonide/Formoterol Fumarate 2 puff INHALATION RT-BID PRN 07/25/16 07/30/17 [Symbicort 160-4.5 Mcg Inhaler] Diclofenac Sodium [Voltaren Gel] 4 gram TOPICAL QID PRN 07/25/16 07/30/17 Lidocaine 5% Oint [Xylocaine 5% 1 applic TOPICAL QID PRN 07/25/16 07/30/17 Oint] Lidocaine 5% Patch [Lidoderm 5% 2 - 3 patch TOPICAL Q12H PRN 07/25/16 07/30/17 Patch] Ondansetron [Zofran ODT] 2 - 4 mg PO Q8HR PRN 07/25/16 07/30/17 oxyCODONE-APAP 10-325MG [Percocet 1 tab PO TID 07/25/16 07/30/17 10-325 mg] Sennosides [Senna] 8.6 mg PO DAILY PRN 09/28/16 07/30/17 Methotrexate Injection 25mg/Ml 20 mg SQ WE 12/01/16 07/30/17 Scopolamine 1.5MG/72Hr Patch 1 patch TRANSDERM Q72H 12/01/16 07/30/17 [TransDerm Scop] Tofacitinib Citrate [Xeljanz Xr] 11 mg PO DAILY 12/01/16 07/30/17 Baclofen [Lioresal] 10 mg PO TID 12/14/16 07/30/17 Butalb/Asprin/Caff 50-325-40Mg 1 cap PO Q4HR PRN 12/14/16 07/30/17 [Fiorinal 50-325-40 MG] Cetirizine HCl 10 mg PO DAILY 12/14/16 07/30/17 Hydrocortisone Pr Cream 1 applic RECTAL DAILY PRN 12/14/16 07/30/17 [Proctosol-Hc 2.5%] QUEtiapine FUMARATE [SEROquel] 25 mg PO HS 12/14/16 07/30/17 Fluticasone Nasal [place] [Flonase 1 spray EA NOSTRIL DAILY 12/15/16 07/30/17 Nasal [place]] Folic Acid 1 mg PO DAILY 12/15/16 07/30/17 Furosemide [Lasix] 20 mg PO W/LUNCH PRN 12/15/16 07/30/17 Furosemide [Lasix] 40 mg PO DAILY 12/15/16 07/30/17 Previous Rx's Medication Instructions Recorded Nicotine 14Mg/24Hr Patch [Habitrol] 1 patch TRANSDERM DAILY #30 patch 12/15/16 Allergies Allergy/AdvReac Type Severity Reaction Status Date / Time latex Allergy Severe Unknown Verified 07/30/17 04:50 adhesive Allergy Rash/Hives Verified 07/30/17 04:50 enbucrilate Allergy Rash/Hives Verified 07/30/17 04:50 etanercept [From Enbrel] Allergy Unknown Verified 07/30/17 04:50 gluten Allergy Unknown Verified 07/30/17 04:50 meclizine [From Antivert] Allergy Anaphylaxis Verified 07/30/17 04:50 methocarbamol Allergy Unknown Verified 07/30/17 04:50 simvastatin [From Zocor] Allergy Unknown Verified 07/30/17 04:50 Sulfa (Sulfonamide Allergy Unknown Verified 07/30/17 04:50 Antibiotics) Iodinated Contrast- Oral and AdvReac Anaphylaxis Verified 07/30/17 04:50 IV Dye [Iodinated Contrast Media - Oral and] Review of Systems ROS Statement: Those systems with pertinent positive or pertinent negative responses have been documented in the HPI. ROS Other: All systems not noted in ROS Statement are negative. Constitutional: Denies: fever, chills Respiratory: Denies: cough, dyspnea Cardiovascular: Denies: chest pain Gastrointestinal: Denies: abdominal pain Musculoskeletal: Reports: as per HPI, myalgia. Denies: back pain Skin: Denies: rash Neurological: Denies: headache, weakness, numbness, paresthesias Past Medical History Past Medical History: Asthma, Fibromyalgia, Hypertension, Rheumatoid Arthritis ( RA) Additional Past Medical History / Comment(s): stress test,endometriosis, migraine, carpel tunnel, lupus, ovarian cysts, per pt dr said poss seizure or stroke 2 yrs ago but not confirmed, interstitial cystitis,chronic pain syndrome sees at pain clinic,past fall/concussion/whiplash, " benign postual vertigo, "did'nt past saccade test or optokinetic test needs to f/u neurologist". w/ testing had iv dye/fluid went into rt thumb,told if swelling does'nt go down to see at [facility]" BOARDERLINE DM NO MEDS AND NOT CHECK BS History of Any Multi-Drug Resistant Organisms: MRSA Date of last positivie culture/infection: 2011 MDRO Source:: back Past Surgical History: Appendectomy, Section, Heart Catheterization, Hysterectomy, Tubal Ligation Additional Past Surgical History / Comment(s): c- section x 2, throat surgery, jimena renal stents with removal, ovarian cyst removal, heart cath-rt radial used Past Anesthesia/Blood Transfusion Reactions: No Reported Reaction Past Psychological History: Anxiety, Depression Smoking Status: Current every day smoker Past Alcohol Use History: Occasional Past Drug Use History: Marijuana - Past Family History Father Family Medical History: CVA/TIA, Diabetes Mellitus, Myocardial Infarction ([place]) Mother Family Medical History: CVA/TIA, Rheumatoid Arthritis (RA) Additional Family Medical History / Comment(s): Schizo, heart problems General Exam Limitations: no limitations General appearance: alert, in no apparent distress Head exam: Present: atraumatic, normocephalic Eye exam: Present: normal appearance. Absent: scleral icterus, conjunctival injection ENT exam: Present: normal oropharynx, mucous membranes moist Neck exam: Present: normal inspection, full ROM Respiratory exam: Present: normal lung sounds bilaterally. Absent: respiratory distress, wheezes, rales, rhonchi, stridor Cardiovascular Exam: Present: regular rate, normal rhythm, normal heart sounds. Absent: systolic murmur, diastolic murmur, rubs, gallop GI/Abdominal exam: Present: soft. Absent: distended, tenderness, guarding, rebound, mass Extremities exam: Present: normal inspection, normal capillary refill. Absent: pedal edema, calf tenderness Back exam: Present: normal inspection. Absent: CVA tenderness (R), CVA tenderness (L) Neurological exam: Present: alert. Absent: motor sensory deficit Skin exam: Present: warm, dry, intact, normal color. Absent: rash Course Vital Signs 07/30/17 04:47 Temperature 98.7 F Pulse Rate 100 Respiratory 20 Rate Blood Pressure 154/72 O2 Sat by Pulse 97 Oximetry Medical Decision Making - Lab Data Result diagrams: 07/30/17 06:06 07/30/17 05:31 Lab Results 07/30/17 07/30/17 07/30/17 Range/Units 05:31 05:31 06:06 WBC 5.0 (3.8-10.6) k/uL RBC 4.12 (3.80-5.40) m/uL Hgb 12.8 (11.4-16.0) gm/dL Hct 38.5 (34.0-46.0) % MCV 93.4 (80.0-100.0) fL MCH 31.1 (25.0-35.0) pg MCHC 33.4 (31.0-37.0) g/dL RDW 12.6 (11.5-15.5) % Plt Count 259 (150-450) k/uL Neutrophils % 49 % Lymphocytes % 42 % Monocytes % 5 % Eosinophils % 2 % Basophils % 1 % Neutrophils # 2.4 (1.3-7.7) k/uL Lymphocytes # 2.1 (1.0-4.8) k/uL Monocytes # 0.2 (0-1.0) k/uL Eosinophils # 0.1 (0-0.7) k/uL Basophils # 0.0 (0-0.2) k/uL Sodium 141 (137-145) mmol/L Potassium 4.6 (3.5-5.1) mmol/L Chloride 101 (98-107) mmol/L Carbon Dioxide 29 (22-30) mmol/L Anion Gap 11 mmol/L BUN 9 (7-17) mg/dL Creatinine 0.70 (0.52-1.04) mg/dL Est GFR (MDRD) Af Amer >60 (>60 ml/min/1.73 sqM) Est GFR (MDRD) Non-Af >60 (>60 ml/min/1.73 sqM) Glucose 91 (74-99) mg/dL Calcium 10.6 H (8.4-10.2) mg/dL Magnesium 2.1 (1.6-2.3) mg/dL Total Bilirubin 0.4 (0.2-1.3) mg/dL AST 34 (14-36) U/L ALT 43 (9-52) U/L Alkaline Phosphatase 76 (38-126) U/L Total Creatine Kinase 130 (30-135) U/L CK-MB (CK-2) 1.0 (0.0-2.4) ng/mL CK-MB (CK-2) Rel Index 0.8 Total Protein 8.3 H (6.3-8.2) g/dL Albumin 5.0 (3.5-5.0) g/dL Disposition Clinical Impression: Muscle spasms of both lower extremities Disposition: HOME SELF-CARE Condition: Good Instructions: Muscle Spasm (ED) Referrals: Alicia Wing III, MD [Primary Care Provider] - 1-2 days
[2017-07-30] MEDS ORDERED: DIAZEPAM 5 MG/ML 2 ML INJ IVP STA (05:40)
[2017-07-30 06:08] LABS: ALT 43 U/L (9-52); AST 34 U/L (14-36); Alkaline Phosphatase 76 U/L (38-126); Blood Urea Nitrogen 9 mg/dL (7-17); Calcium 10.6 mg/dL (8.4-10.2); Carbon Dioxide 29 mmol/L (22-30); Chloride 101 mmol/L (98-107); Glucose 91 mg/dL (74-99); Magnesium 2.1 mg/dL (1.6-2.3); Non-African American GFR(MDRD) >60 (>60 ml/min/1.73 sqM); Potassium 4.6 mmol/L (3.5-5.1); Total Bilirubin 0.4 mg/dL (0.2-1.3); Total Protein 8.3 g/dL (6.3-8.2)
[2017-07-30 06:10] LABS: Anion Gap 11 mmol/L; Sodium 141 mmol/L (137-145)
[2017-07-30 06:15] LABS: Basophils % (A) 1 %; CH 32.1; CHCM 34.5; Eosinophils # (A) 0.1 k/uL (0-0.7); Eosinophils % (A) 2 %; HCT 38.5 % (34.0-46.0); HGB 12.8 gm/dL (11.4-16.0); Luc % (Auto) 2; Lymphocytes # (A) 2.1 k/uL (1.0-4.8); Lymphocytes % (A) 42 %; MCH 31.1 pg (25.0-35.0); MCHC 33.4 g/dL (31.0-37.0); MCV 93.4 fL (80.0-100.0); Mean Platelet Volume 6.9; Monocytes # (A) 0.2 k/uL (0-1.0); Monocytes % (A) 5 %; Neutrophils # (A) 2.4 k/uL (1.3-7.7); Neutrophils % (A) 49 %; RBC 4.12 m/uL (3.80-5.40); RDW 12.6 % (11.5-15.5)
[2017-07-30 07:29] VITALS: BP 122/75; PULSE 77; RESP 18; TEMP 97.5
== END 2017-07-30 07:29 | disposition home or self-care (01) ==
LOC: EC 04:43
DX: M62.838 Other muscle spasm (principal); E87.6 Hypokalemia; I10 Essential (primary) hypertension; J45.909 Unspecified asthma, uncomplicated; M06.9 Rheumatoid arthritis, unspecified; M79.7 Fibromyalgia; G89.4 Chronic pain syndrome; F32.9 Major depressive disorder, single episode, unspecified; F41.9 Anxiety disorder, unspecified; F17.200 Nicotine dependence, unspecified, uncomplicated; Z79.51 Long term (current) use of inhaled steroids; Z79.891 Long term (current) use of opiate analgesic; Z79.899 Other long term (current) drug therapy; Z88.2 Allergy status to sulfonamides; Z88.8 Allergy status to other drugs, medicaments and biological substances; Z91.040 Latex allergy status; Z91.041 Radiographic dye allergy status; Z91.09 Other allergy status, other than to drugs and biological substances; Z82.61 Family history of arthritis
CPT/HCPCS: 36415; 80053; 82550; 82553; 83735; 85025; 99283; 96374; J3360

== ENCOUNTER → 2017-08-17 | Outpatient (CLI) | payer MEDICARE, BC ==
[2017-08-17 20:20] LABS: ALT 34 U/L (9-52); AST 28 U/L (14-36); Albumin 5.1 g/dL (3.5-5.0); Alkaline Phosphatase 79 U/L (38-126); Anion Gap 15 mmol/L; Blood Urea Nitrogen 9 mg/dL (7-17); Calcium 9.9 mg/dL (8.4-10.2); Carbon Dioxide 28 mmol/L (22-30); Chloride 100 mmol/L (98-107); Glucose 111 mg/dL (74-99); Sodium 143 mmol/L (137-145); Total Bilirubin 0.4 mg/dL (0.2-1.3); Total Protein 8.7 g/dL (6.3-8.2)
[2017-08-17 20:37] LABS: T4, Free (Free Thyroxine) 0.74 ng/dL (0.78-2.19)
[2017-08-18 01:46] LABS: Vitamin D 25 Hydroxy 27.1 ng/mL (30.0-100.0)
[2017-08-18 02:07] LABS: Parathyroid Hormone Intact 246.6 pg/mL (14.0-72.0)
[2017-08-18 02:53] LABS: ACTH <5.00 pg/mL (0.00-45.99)
== END | disposition home or self-care (01) ==
LOC: LABWHC1 15:29
PROVIDERS: ATTEND Internal Medicine Endocrinology, Diabetes & Metabolism
DX: E21.3 Hyperparathyroidism, unspecified (principal); R53.83 Other fatigue
CPT/HCPCS: 36415; 80053; 82024; 82306; 82533; 83970; 84146; 84439; 84443

== ENCOUNTER → 2017-08-25 | Outpatient (CLI) | payer MEDICARE, BC ==
[2017-08-25 10:40] LABS: T4, Free (Free Thyroxine) 0.67 ng/dL (0.78-2.19)
[2017-08-25 18:05] LABS: ACTH <5.00 pg/mL (0.00-45.99)
== END | disposition home or self-care (01) ==
LOC: LABWHC1 09:48
PROVIDERS: ATTEND Internal Medicine Endocrinology, Diabetes & Metabolism
DX: E55.9 Vitamin D deficiency, unspecified (principal); E21.3 Hyperparathyroidism, unspecified; R53.83 Other fatigue
CPT/HCPCS: 36415; 82024; 82533; 84146; 84439; 84443; 84481

== ENCOUNTER → 2017-09-05 | Outpatient (CLI) | payer MEDICARE, BC ==
--- NOTE | 2017-09-05 20:05 | NM ---
EXAMINATION TYPE: NM parathyroid w/spect DATE OF EXAM: 09/05/2017 COMPARISON: CT cervical spine 10/22/2016 HISTORY: E 21.3, hyperparathyroidism TECHNIQUE: Following administration of 26.0 mCi Tc99m Sestamibi. Anterior projection images of the neck and ches t were obtained 15 minutes and 3 hours post injection. SPECT images of the neck and chest were obtai annie and reconstructed in three axes. FINDINGS: Thyroid tracer washout: Delayed images demonstrate near-complete tracer washout from the thyroid. Parathyroid uptake: None. The two-hour delayed images do not demonstrate any focal abnormal persisten t uptake in the region of the parathyroid glands to suggest parathyroid adenoma. Normal uptake: There is physiological tracer uptake in the salivary glands and thyroid gland. IMPRESSION: Normal parathyroid imaging study. No evidence for mediastinal uptake to suggest mediastinal parathyro id adenoma
== END | disposition home or self-care (01) ==
LOC: RADNMMAIN 10:44
PROVIDERS: ATTEND Internal Medicine Endocrinology, Diabetes & Metabolism
DX: E21.3 Hyperparathyroidism, unspecified (principal)
CPT/HCPCS: 78071; A9500

== ENCOUNTER 2017-09-27 11:10 | Emergency (ER) | payer MEDICARE, BC ==
[2017-09-27] MEDS ORDERED: SODIUM CHLORIDE 0.9% 1,000 ML IV STA (11:45)
[2017-09-27] MEDS ORDERED: SODIUM CHLORIDE 0.9% 500 ML IV STA (11:45)
[2017-09-27] MEDS ORDERED: ASPIRIN 81 MG PO STA (11:45)
--- NOTE | 2017-09-27 11:50 | ED ---
General Adult HPI - General Chief complaint: Chest Pain Stated complaint: Chest pain Time Seen by Provider: 09/27/17 11:21 Source: patient Mode of arrival: wheelchair Limitations: no limitations - History of Present Illness Initial comments: 47-year-old female presents for evaluation of sharp anterior chest pain. Pain is left sided, has been present for the past 16 hours. Began at rest yesterday evening. Patient also complains of left-sided arm pain and shoulder pain. She has bilateral thigh pain. Describes this as crampy in nature. She also complains of headache. Chest pain was associated with nausea and diaphoresis. 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 Patient has no known history of coronary artery disease. She has history of fibromyalgia, asthma, hypertension and chronic pain. She denies any missed doses of her pain medication and or her anxiety medication. - Related Data Home Medications Medication Instructions Recorded Confirmed Gabapentin [Neurontin] 600 mg PO QID 12/21/13 09/27/17 Sennosides [Senna] 17.2 mg PO HS PRN 09/28/16 09/27/17 Scopolamine 1.5MG/72Hr Patch 1 patch TRANSDERM Q72H 12/01/16 09/27/17 [TransDerm Scop] Baclofen [Lioresal] 10 mg PO TID 12/14/16 09/27/17 Cetirizine HCl 10 mg PO DAILY 12/14/16 09/27/17 Folic Acid 1 mg PO DAILY 12/15/16 09/27/17 Furosemide [Lasix] 20 mg PO W/LUNCH PRN 12/15/16 09/27/17 Furosemide [Lasix] 40 mg PO DAILY 12/15/16 09/27/17 Albuterol Nebulized [Ventolin 2.5 mg INHALATION RT-TID 09/27/17 09/27/17 Nebulized] EPINEPHrine [Epipen 2-Chance] 0.3 mg IM ONCE PRN 09/27/17 09/27/17 Fluticasone/Salmeterol [Advair 1 puff INHALATION RT-BID 09/27/17 09/27/17 250-50 Diskus] LORazepam [Ativan] 1 mg PO BID 09/27/17 09/27/17 Methocarbamol [Robaxin] 1,000 mg PO Q8H 09/27/17 09/27/17 Omeprazole [PriLOSEC] 20 mg PO DAILY 09/27/17 09/27/17 Ondansetron Odt [Zofran ODT] 8 mg PO Q8H 09/27/17 09/27/17 Potassium Chloride [Klor-Con 20] 20 meq PO BID 09/27/17 09/27/17 SUMAtriptan SUCCINATE [Imitrex] 50 mg PO BID PRN 09/27/17 09/27/17 Sertraline HCl [Zoloft] 100 mg PO DAILY 09/27/17 09/27/17 Sucralfate [Carafate] 1 gm PO BID 09/27/17 09/27/17 hydrOXYzine HCL [Atarax] 25 - 50 mg PO HS PRN 09/27/17 09/27/17 oxyCODONE HCL [oxyCODONE HCL] 20 mg PO Q12H 09/27/17 09/27/17 oxyCODONE-APAP 7.5-325MG [Percocet 1 tab PO BID PRN 09/27/17 09/27/17 7.5-325 mg] Allergies Allergy/AdvReac Type Severity Reaction Status Date / Time latex Allergy Severe Unknown Verified 07/30/17 04:50 adhesive Allergy Rash/Hives Verified 07/30/17 04:50 enbucrilate Allergy Rash/Hives Verified 07/30/17 04:50 etanercept [From Enbrel] Allergy Unknown Verified 07/30/17 04:50 gluten Allergy Unknown Verified 07/30/17 04:50 hydrocortisone [From Cortef] Allergy Unknown Verified 09/27/17 11:13 meclizine [From Antivert] Allergy Anaphylaxis Verified 07/30/17 04:50 simvastatin [From Zocor] Allergy Unknown Verified 07/30/17 04:50 Sulfa (Sulfonamide Allergy Unknown Verified 07/30/17 04:50 Antibiotics) Iodinated Contrast- Oral and AdvReac Anaphylaxis Verified 07/30/17 04:50 IV Dye [Iodinated Contrast Media - Oral and] Review of Systems ROS Statement: Those systems with pertinent positive or pertinent negative responses have been documented in the HPI. ROS Other: All systems not noted in ROS Statement are negative. Past Medical History Past Medical History: Asthma, Fibromyalgia, Hypertension, Rheumatoid Arthritis ( RA) Additional Past Medical History / Comment(s): stress test,endometriosis, migraine, carpel tunnel, lupus, ovarian cysts, per pt said poss seizure or stroke 2 yrs ago but not confirmed, interstitial cystitis,chronic pain syndrome sees at pain clinic,past fall/concussion/whiplash, " benign postual vertigo, "did'nt past saccade test or optokinetic test needs to f/u neurologist". w/ testing had iv dye/fluid went into rt thumb,told if swelling does'nt go down to see at [facility]" BOARDERLINE DM NO MEDS AND NOT CHECK BS History of Any Multi-Drug Resistant Organisms: MRSA Date of last positivie culture/infection: 2011 MDRO Source:: back Past Surgical History: Appendectomy, Section, Heart Catheterization, Hysterectomy, Tubal Ligation Additional Past Surgical History / Comment(s): c- section x 2, throat surgery, jimena renal stents with removal, ovarian cyst removal, heart cath-rt radial used Past Anesthesia/Blood Transfusion Reactions: No Reported Reaction Past Psychological History: Anxiety, Depression Smoking Status: Former smoker Past Alcohol Use History: Occasional Past Drug Use History: None Reported - Past Family History Father Family Medical History: CVA/TIA, Diabetes Mellitus, Myocardial Infarction ([place]) Mother Family Medical History: CVA/TIA, Rheumatoid Arthritis (RA) Additional Family Medical History / Comment(s): Schizo, heart problems General Exam Limitations: no limitations General appearance: alert, in no apparent distress Head exam: Present: atraumatic, normocephalic Eye exam: Present: normal appearance, PERRL, EOMI ENT exam: Present: normal exam Neck exam: Present: normal inspection. Absent: tenderness, meningismus Respiratory exam: Present: normal lung sounds bilaterally. Absent: respiratory distress, wheezes Cardiovascular Exam: Present: regular rate, normal rhythm GI/Abdominal exam: Present: soft. Absent: distended, tenderness Extremities exam: Present: normal inspection, normal capillary refill. Absent: pedal edema, calf tenderness Neurological exam: Present: alert, oriented X3, CN II-XII intact. Absent: motor sensory deficit Psychiatric exam: Present: normal affect, normal mood Skin exam: Present: warm, dry, intact. Absent: cyanosis, diaphoretic Course Vital Signs 09/27/17 09/27/17 09/27/17 11:13 11:25 11:33 Temperature 98 F Pulse Rate 83 Pulse Rate [ 75 Apical] Respiratory 20 20 Rate Blood Pressure 156/72 O2 Sat by Pulse 97 Oximetry 09/27/17 09/27/17 09/27/17 12:36 13:00 14:13 Temperature Pulse Rate 66 73 78 Pulse Rate [ Apical] Respiratory 18 18 18 Rate Blood Pressure 132/83 139/81 135/86 O2 Sat by Pulse 97 98 98 Oximetry 09/27/17 14:20 Temperature Pulse Rate 70 Pulse Rate [ Apical] Respiratory 18 Rate Blood Pressure 131/88 O2 Sat by Pulse 97 Oximetry EKG Findings - EKG Comments: EKG Findings:: EKG shows normal sinus rhythm, ventricular rate 82, ME interval 126, castration 92, QTC 469, no signs of acute ischemia Medical Decision Making - Medical Decision Making 47-year-old female presenting with multiple complaints abdominal pain or extremity pain chest pain. Patient is well-appearing stable vitals. EKG nonischemic. CBC was obtained, negative for any acute abnormalities, troponin and d-dimer are negative. CMP and urinalysis are unremarkable. 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 Valentine, he recommends outpatient follow-up at this time. Cath report from 2015, July was reviewed and there was no coronary artery disease. - Lab Data Result diagrams: 09/27/17 12:30 09/27/17 12:30 Lab Results 09/27/17 09/27/17 09/27/17 Range/Units 12:30 12:30 12:30 WBC 4.0 (3.8-10.6) k/uL RBC 4.55 (3.80-5.40) m/uL Hgb 13.8 (11.4-16.0) gm/dL Hct 40.3 (34.0-46.0) % MCV 88.5 (80.0-100.0) fL MCH 30.2 (25.0-35.0) pg MCHC 34.2 (31.0-37.0) g/dL RDW 12.7 (11.5-15.5) % Plt Count 229 (150-450) k/uL Neutrophils % 55 % Lymphocytes % 35 % Monocytes % 5 % Eosinophils % 2 % Basophils % 1 % Neutrophils # 2.2 (1.3-7.7) k/uL Lymphocytes # 1.4 (1.0-4.8) k/uL Monocytes # 0.2 (0-1.0) k/uL Eosinophils # 0.1 (0-0.7) k/uL Basophils # 0.0 (0-0.2) k/uL PT (9.0-12.0) sec INR (<1.2) APTT (22.0-30.0) sec D-Dimer (<0.60) mg/L FEU Sodium 146 H (137-145) mmol/L Potassium 3.6 (3.5-5.1) mmol/L Chloride 106 (98-107) mmol/L Carbon Dioxide 28 (22-30) mmol/L Anion Gap 12 mmol/L BUN 4 L (7-17) mg/dL Creatinine 0.60 (0.52-1.04) mg/dL Est GFR (MDRD) Af Amer >60 (>60 ml/min/1.73 sqM) Est GFR (MDRD) Non-Af >60 (>60 ml/min/1.73 sqM) Glucose 102 H (74-99) mg/dL Calcium 9.8 (8.4-10.2) mg/dL Magnesium 1.7 (1.6-2.3) mg/dL Total Bilirubin 0.4 (0.2-1.3) mg/dL AST 19 (14-36) U/L ALT 19 (9-52) U/L Alkaline Phosphatase 68 (38-126) U/L Total Creatine Kinase 61 (30-135) U/L CK-MB (CK-2) <0.2 (0.0-2.4) ng/mL CK-MB (CK-2) Rel Index Troponin I <0.012 (0.000-0.034) ng/mL NT-Pro-B Natriuret Pep pg/mL Total Protein 7.1 (6.3-8.2) g/dL Albumin 4.4 (3.5-5.0) g/dL Lipase 62 (23-300) U/L Urine Color Urine Appearance (Clear) Urine pH (5.0-8.0) Ur Specific [place] (1.001-1.035) Urine Protein (Negative) Urine Glucose (UA) (Negative) Urine Ketones (Negative) Urine Blood (Negative) Urine Nitrite (Negative) Urine Bilirubin (Negative) Urine Urobilinogen (<2.0) mg/dL Ur Leukocyte Esterase (Negative) 09/27/17 09/27/17 09/27/17 Range/Units 12:30 12:30 12:30 WBC (3.8-10.6) k/uL RBC (3.80-5.40) m/uL Hgb (11.4-16.0) gm/dL Hct (34.0-46.0) % MCV (80.0-100.0) fL MCH (25.0-35.0) pg MCHC (31.0-37.0) g/dL RDW (11.5-15.5) % Plt Count (150-450) k/uL Neutrophils % % Lymphocytes % % Monocytes % % Eosinophils % % Basophils % % Neutrophils # (1.3-7.7) k/uL Lymphocytes # (1.0-4.8) k/uL Monocytes # (0-1.0) k/uL Eosinophils # (0-0.7) k/uL Basophils # (0-0.2) k/uL PT 10.4 (9.0-12.0) sec INR 1.1 (<1.2) APTT 24.9 (22.0-30.0) sec D-Dimer 0.18 (<0.60) mg/L FEU Sodium (137-145) mmol/L Potassium (3.5-5.1) mmol/L Chloride (98-107) mmol/L Carbon Dioxide (22-30) mmol/L Anion Gap mmol/L BUN (7-17) mg/dL Creatinine (0.52-1.04) mg/dL Est GFR (MDRD) Af Amer (>60 ml/min/1.73 sqM) Est GFR (MDRD) Non-Af (>60 ml/min/1.73 sqM) Glucose (74-99) mg/dL Calcium (8.4-10.2) mg/dL Magnesium (1.6-2.3) mg/dL Total Bilirubin (0.2-1.3) mg/dL AST (14-36) U/L ALT (9-52) U/L Alkaline Phosphatase (38-126) U/L Total Creatine Kinase (30-135) U/L CK-MB (CK-2) (0.0-2.4) ng/mL CK-MB (CK-2) Rel Index Troponin I (0.000-0.034) ng/mL NT-Pro-B Natriuret Pep 46 pg/mL Total Protein (6.3-8.2) g/dL Albumin (3.5-5.0) g/dL Lipase (23-300) U/L Urine Color Light Yellow Urine Appearance Clear (Clear) Urine pH 6.0 (5.0-8.0) Ur Specific [place] 1.002 (1.001-1.035) Urine Protein Negative (Negative) Urine Glucose (UA) Negative (Negative) Urine Ketones Negative (Negative) Urine Blood Negative (Negative) Urine Nitrite Negative (Negative) Urine Bilirubin Negative (Negative) Urine Urobilinogen <2.0 (<2.0) mg/dL Ur Leukocyte Esterase Negative (Negative) Disposition Clinical Impression: Atypical chest pain, Abdominal pain, Chronic pain syndrome Disposition: HOME SELF-CARE Condition: Good Instructions: Chest Pain (ED), Fibromyalgia (ED) Referrals: Alicia Wing III, MD [Primary Care Provider] - 1-2 days Time of Disposition: 14:48
[2017-09-27 12:37] VITALS: RESP 18
[2017-09-27 12:45] LABS: Appearance,Urine Clear (Clear); Bilirubin,Urine Negative (Negative); Blood,Urine Negative (Negative); Color,Urine Light Yellow; Glucose,Urine (UA) Negative (Negative); Ketones,Urine Negative (Negative); Leukocyte Esterase,Urine Negative (Negative); Protein,Urine Negative (Negative); Specific Gravity,Urine 1.002 (1.001-1.035); Urobilinogen,Urine <2.0 mg/dL (<2.0)
[2017-09-27 12:53] LABS: Basophils % (A) 1 %; Eosinophils # (A) 0.1 k/uL (0-0.7); Eosinophils % (A) 2 %; HCT 40.3 % (34.0-46.0); HGB 13.8 gm/dL (11.4-16.0); Lymphocytes # (A) 1.4 k/uL (1.0-4.8); Lymphocytes % (A) 35 %; MCH 30.2 pg (25.0-35.0); MCHC 34.2 g/dL (31.0-37.0); MCV 88.5 fL (80.0-100.0); Mean Platelet Volume 7.2; Monocytes # (A) 0.2 k/uL (0-1.0); Monocytes % (A) 5 %; Neutrophils # (A) 2.2 k/uL (1.3-7.7); Neutrophils % (A) 55 %; Platelet Count 229 k/uL (150-450); RBC 4.55 m/uL (3.80-5.40); RDW 12.7 % (11.5-15.5)
[2017-09-27 12:56] LABS: ALT 19 U/L (9-52); AST 19 U/L (14-36); Albumin 4.4 g/dL (3.5-5.0); Alkaline Phosphatase 68 U/L (38-126); Anion Gap 12 mmol/L; Blood Urea Nitrogen 4 mg/dL (7-17); Calcium 9.8 mg/dL (8.4-10.2); Carbon Dioxide 28 mmol/L (22-30); Chloride 106 mmol/L (98-107); Glucose 102 mg/dL (74-99); Lipase 62 U/L (23-300); Potassium 3.6 mmol/L (3.5-5.1); Sodium 146 mmol/L (137-145); Total Bilirubin 0.4 mg/dL (0.2-1.3); Total Protein 7.1 g/dL (6.3-8.2)
[2017-09-27 13:05] LABS: D-Dimer 0.18 mg/L FEU (<0.60); INR 1.1 (<1.2); Partial Thromboplastin Time 24.9 sec (22.0-30.0); Prothrombin Time 10.4 sec (9.0-12.0)
[2017-09-27] MEDS ORDERED: MORPHINE SULFATE 4 MG/ML SYRINGE IVP STA (13:12)
[2017-09-27] MEDS ORDERED: ONDANSETRON 4 MG/2 ML VIAL IVP STA (13:12)
[2017-09-27 13:18] LABS: Creatine Kinase 61 U/L (30-135)
[2017-09-27 13:30] LABS: Creatine Kinase MB <0.2 ng/mL (0.0-2.4); Troponin I <0.012 ng/mL (0.000-0.034)
--- NOTE | 2017-09-27 14:41 | XR ---
EXAMINATION TYPE: XR chest 2V DATE OF EXAM: 09/27/2017 COMPARISON: Prior chest x-ray 12/14/2016 HISTORY: Chest pain TECHNIQUE: Frontal and lateral views of the chest are obtained. FINDINGS: There is no focal air space opacity, pleural effusion, or pneumothorax seen. The cardiac silhouette size is within normal limits. There are overlying cardiac leads. There is mild spinal cu rvature. The osseous structures are intact. IMPRESSION: No acute cardiopulmonary process.
[2017-09-27 15:16] VITALS: BP 147/88; PULSE 68; TEMP 98.7
== END 2017-09-27 15:14 | disposition home or self-care (01) ==
LOC: EC 11:10
DX: G89.4 Chronic pain syndrome (principal); R07.89 Other chest pain; R10.9 Unspecified abdominal pain; M79.602 Pain in left arm; M25.512 Pain in left shoulder; M79.651 Pain in right thigh; M79.652 Pain in left thigh; R51 Headache; R11.0 Nausea; R61 Generalized hyperhidrosis; I10 Essential (primary) hypertension; J45.909 Unspecified asthma, uncomplicated; M79.7 Fibromyalgia; F32.9 Major depressive disorder, single episode, unspecified; F41.9 Anxiety disorder, unspecified; Z87.891 Personal history of nicotine dependence; Z79.51 Long term (current) use of inhaled steroids; Z79.891 Long term (current) use of opiate analgesic; Z79.899 Other long term (current) drug therapy; Z88.2 Allergy status to sulfonamides; Z88.8 Allergy status to other drugs, medicaments and biological substances; Z91.040 Latex allergy status; Z91.041 Radiographic dye allergy status; Z91.048 Other nonmedicinal substance allergy status; Z86.14 Personal history of Methicillin resistant Staphylococcus aureus infection; Z95.9 Presence of cardiac and vascular implant and graft, unspecified; Z90.49 Acquired absence of other specified parts of digestive tract; Z82.49 Family history of ischemic heart disease and other diseases of the circulatory system
CPT/HCPCS: 36415; 93005; 85379; 83880; 80053; 82550; 82553; 83690; 83735; 84484; 85025; 85610; 85730; 81003; 71046; 99285; 96374; 96375; 96361 ×2; J2270; J2405

== ENCOUNTER → 2018-09-26 | Outpatient (CLI) | payer MEDICARE, BC ==
--- NOTE | 2018-09-27 07:37 | MM ---
Reason for exam: additional evaluation requested from prior study. Last mammogram was performed 2 years and 1 month ago. History: Patient is postmenopausal. Family history of breast cancer in 2 maternal aunts at age 40. Benign US breast needle core LT of the left breast, December 29, 2016. Took hormonal contraceptives for 10 months. Took estrogen for 2 years. Physical Findings: Nurse did not find any significant physical abnormalities on exam. MG 3D Diag Mammo W/Cad PABLO Bilateral CC and MLO view(s) were taken. Prior study comparison: September 01, 2016, bilateral MG 3d diag mammo w/cad PABLO. September 08, 2015, bilateral MG 3d diag mammo w/cad PABLO. The breast tissue is heterogeneously dense. This may lower the sensitivity of mammography. Benign appearing bilateral calcifications. Left medial anterior depth asymmetry appears as fibroglandular tissue on 3D. Left biopsy marker noted. These results were verbally communicated with the patient and result sheet given to the patient on 09/26/18. ASSESSMENT: Incomplete: need additional imaging evaluation, BI-RAD 0 RECOMMENDATION: Ultrasound of the right breast. (axilla palpable)
--- NOTE | 2018-09-27 07:45 | USB ---
Reason for exam: additional evaluation requested from abnormal screening. History: Patient is postmenopausal. Family history of breast cancer in 2 maternal aunts at age 40. Benign US breast needle core LT of the left breast, December 29, 2016. Took hormonal contraceptives for 10 months. Took estrogen for 2 years. US Breast Limited BILAT Right limited breast ultrasound including focal area of concern, retroareolar and axilla demonstrates no cystic or solid lesion seen. Left complete breast ultrasound includes all four quadrants, the retroareolar region and axilla. Finding demonstrates a 0.5 x 0.6 x 0.2cm oval, solid, hypoechoic lesion at 2 o'clock, no cystic characteristics, biopsy recommended, a 0.2 x 0.3 x 0.1cm oval, cystic lesion at 4 o'clock and a 0.3 x 0.2 x 0.2cm cystic lesion at 10 o'clock. These results were verbally communicated with the patient and result sheet given to the patient on 09/26/18. ASSESSMENT: Suspicious, BI-RAD 4 RECOMMENDATION: Ultrasound core biopsy of the left breast. (2 o'clock) Called Dr. Wing with mammographic findings and has scheduled an appointment for the patient for 10/18/18 at 1:[address] Mantilla. Patient also has consultation with Dr. Abrams for 10/02/18 at 2:30. Wants to see a surgeon first for consult. Patient tentatively scheduled with Dr. Mantilla and Dr. Abrams and will decide which appointment to keep after talking with her fiance. Patient states she will cancel whichever appointment with whichever surgeon she does not see. Notified Dr. Wing's office. PRELIMINARY REPORT CALLED AND FAXED TO DR. MANTILLA AND DR. ABRAMS ON 09/27/18.
== END | disposition home or self-care (01) ==
LOC: RADMAMWWP 14:16
PROVIDERS: ATTEND Family Medicine
DX: R92.8 Other abnormal and inconclusive findings on diagnostic imaging of breast (principal)
CPT/HCPCS: 77066; 76642; G0279; 77062

== ENCOUNTER 2018-10-02 16:27 | Emergency (ER) | payer MEDICARE, BC ==
[2018-10-02 17:15] VITALS: BP 143/95; PULSE 91; RESP 18; TEMP 98.2
--- NOTE | 2018-10-02 17:38 | ED ---
Recheck HPI - General Chief Complaint: Recheck/Abnormal Lab/Rx Stated Complaint: pain in bilateral shoulders Time Seen by Provider: 10/02/18 17:38 Source: patient Mode of arrival: ambulatory Limitations: no limitations - History of Present Illness Initial Comments: 48 yo female with PMH of RA presenting today for cc of left shoulder pain. Patient states after her mammogram a few days prior she experience bilateral shoulder pain, she states she was put in various positions for long periods of time due to equipment malfunction. She states that this caused bilateral shoulder pain. Patient states the right shoulder pain has subsided however she continues to have left shoulder pain increases with range of motion. Patient is concerned it was dislocated however she did not be of the present to the emergency department. Patient states that today she was in bed when her dog jumped on top of her she states she went to roll away and she heard a pop in her left shoulder. Patient was concerned and presented [facility] for evaluation. Patient doesn't numbness tingling or loss sensation muscle weakness of the left upper extremity. She does admit to decreased range of motion secondary to pain. Patient denies any recent falls or trauma to the left shoulder she denies any recent neck injury. Review of systems negative upon arrival patient appears well no signs of acute distress. She has home prescription of percocet. - Related Data Home Medications Medication Instructions Recorded Confirmed Gabapentin [Neurontin] 600 mg PO QID 12/21/13 09/27/17 Sennosides [Senna] 17.2 mg PO HS PRN 09/28/16 09/27/17 Scopolamine 1.5MG/72Hr Patch 1 patch TRANSDERM Q72H 12/01/16 09/27/17 [TransDerm Scop] Baclofen [Lioresal] 10 mg PO TID 12/14/16 09/27/17 Cetirizine HCl 10 mg PO DAILY 12/14/16 09/27/17 Folic Acid 1 mg PO DAILY 12/15/16 09/27/17 Furosemide [Lasix] 20 mg PO W/LUNCH PRN 12/15/16 09/27/17 Furosemide [Lasix] 40 mg PO DAILY 12/15/16 09/27/17 Albuterol Nebulized [Ventolin 2.5 mg INHALATION RT-TID 09/27/17 09/27/17 Nebulized] EPINEPHrine [Epipen 2-Chance] 0.3 mg IM ONCE PRN 09/27/17 09/27/17 Fluticasone/Salmeterol [Advair 1 puff INHALATION RT-BID 09/27/17 09/27/17 250-50 Diskus] LORazepam [Ativan] 1 mg PO BID 09/27/17 09/27/17 Methocarbamol [Robaxin] 1,000 mg PO Q8H 09/27/17 09/27/17 Omeprazole [PriLOSEC] 20 mg PO DAILY 09/27/17 09/27/17 Ondansetron Odt [Zofran ODT] 8 mg PO Q8H 09/27/17 09/27/17 Potassium Chloride [Klor-Con 20] 20 meq PO BID 09/27/17 09/27/17 SUMAtriptan SUCCINATE [Imitrex] 50 mg PO BID PRN 09/27/17 09/27/17 Sertraline HCl [Zoloft] 100 mg PO DAILY 09/27/17 09/27/17 Sucralfate [Carafate] 1 gm PO BID 09/27/17 09/27/17 hydrOXYzine HCL [Atarax] 25 - 50 mg PO HS PRN 09/27/17 09/27/17 oxyCODONE HCL 20 mg PO Q12H 09/27/17 09/27/17 oxyCODONE-APAP 7.5-325MG [Percocet 1 tab PO BID PRN 09/27/17 09/27/17 7.5-325 mg] Allergies Allergy/AdvReac Type Severity Reaction Status Date / Time latex Allergy Severe Unknown Verified 10/02/18 17:16 adhesive Allergy Rash/Hives Verified 10/02/18 17:16 diphenhydramine Allergy Unknown Verified 10/02/18 17:16 [From Benadryl] enbucrilate Allergy Rash/Hives Verified 10/02/18 17:16 etanercept [From Enbrel] Allergy Unknown Verified 10/02/18 17:16 gluten Allergy Unknown Verified 10/02/18 17:16 hydrocortisone [From Cortef] Allergy Unknown Verified 10/02/18 17:16 meclizine [From Antivert] Allergy Anaphylaxis Verified 10/02/18 17:16 simvastatin [From Zocor] Allergy Unknown Verified 10/02/18 17:16 Sulfa (Sulfonamide Allergy Unknown Verified 10/02/18 17:16 Antibiotics) Iodinated Contrast- Oral and AdvReac Anaphylaxis Verified 10/02/18 17:16 IV Dye [Iodinated Contrast Media - Oral and] Review of Systems ROS Statement: Those systems with pertinent positive or pertinent negative responses have been documented in the HPI. ROS Other: All systems not noted in ROS Statement are negative. Past Medical History Past Medical History: Asthma, Fibromyalgia, Hypertension, Rheumatoid Arthritis ( RA) Additional Past Medical History / Comment(s): stress test,endometriosis, migraine, carpel tunnel, lupus, ovarian cysts, per pt dr said poss seizure or stroke 2 yrs ago but not confirmed, interstitial cystitis,chronic pain syndrome sees dr at pain clinic,past fall/concussion/whiplash, " benign postual vertigo, "did'nt past saccade test or optokinetic test needs to f/u neurologist". w/ testing had iv dye/fluid went into rt thumb,told if swelling does'nt go down to see dr at [facility]" BOARDERLINE DM NO MEDS AND NOT CHECK BS History of Any Multi-Drug Resistant Organisms: MRSA Date of last positivie culture/infection: 2011 MDRO Source:: back Past Surgical History: Appendectomy, Section, Heart Catheterization, Hysterectomy, Tubal Ligation Additional Past Surgical History / Comment(s): c- section x 2, throat surgery, jimena renal stents with removal, ovarian cyst removal, heart cath-rt radial used Past Anesthesia/Blood Transfusion Reactions: No Reported Reaction Past Psychological History: Anxiety, Depression Smoking Status: Current some day smoker Past Alcohol Use History: Occasional, Rare Past Drug Use History: None Reported - Past Family History Father Family Medical History: CVA/TIA, Diabetes Mellitus, Myocardial Infarction (MS) Mother Family Medical History: CVA/TIA, Rheumatoid Arthritis (RA) Additional Family Medical History / Comment(s): Schizo, heart problems General Exam - General Exam Comments Initial Comments: General: The patient is awake and alert, in no distress, and does not appear acutely ill. Eye: Pupils are equal, round and reactive to light, extra-ocular movements are intact. No nystagmus. There is normal conjunctiva bilaterally. No signs of icterus. Ears, nose, mouth and throat: There are moist mucous membranes and no oral lesions. Neck: The neck is supple, there is no tenderness or JVD. Cardiovascular: There is a regular rate and rhythm. No murmur, rub or gallop is appreciated. Respiratory: Lungs are clear to auscultation, respirations are non-labored, breath sounds are equal. No wheezes, stridor, rales, or rhonchi. Musculoskeletal: Upon inspection of the shoulders bilaterally there is no gross deformity no evidence of obvious dislocation. Patient states the pain is most likely over the head of the humerus and anterior shoulder. No posterior shoulder pain. No pain to scalp ill. Patient refuses to fully range at the left shoulder secondary to pain. Patient has full strength and range of motion distal to the left shoulder including at the elbow and wrist. Okay fingers crossed thumbs-up and extension at the wrist bilaterally intact median ulnar and radial didn't appear intact no evidence of wristdrop. Sensation intact of the upper extremities equal comparison bilaterally there is no patch anesthesia. Radial pulses equal bilaterally 2+. Neurological: A&O x 3. CN II-XII intact, There are no obvious motor or sensory deficits. Coordination appears grossly intact. Speech is normal. Skin: Skin is warm and dry and no rashes or lesions are noted. Psychiatric: Cooperative, appropriate mood & affect, normal judgment. Limitations: no limitations Course Vital Signs 10/02/18 17:11 Temperature 98.2 F Pulse Rate 91 Respiratory 18 Rate Blood Pressure 143/95 O2 Sat by Pulse 98 Oximetry Medical Decision Making - Medical Decision Making Appearing 48-year-old female presenting today for chief complaint of shoulder pain after mammogram. Pain is positional and reproducible to palpation. Occurred after various positioning techniques during a mammogram. X-ray negative for acute osseous process. Patient neurovascularly intact. Patient appears well does not appear in acute distress. Patient is placed in a sling for comfort and given orthopedic surgery follow-up. At this time do feel patient is stable for discharge, with instruction to use home medications as directed for pain management and rice instruction. Patient is agreeable plan discharge. I did discuss the case attending provider Dr. Molina prior to patient discharge who is agreeable with impression and plan. Disposition Clinical Impression: Left shoulder pain Disposition: HOME SELF-CARE Condition: Good Instructions (If sedation given, give patient instructions): Shoulder Sprain ( ED) Additional Instructions: Please use medication as discussed. Please follow-up with family doctor in the next 2 days, please follow-up with orthopedic surgery if symptoms persist. Please return to emergency room if the symptoms increase or worsen or for any other concerns. Is patient prescribed a controlled substance at d/c from ED?: No Referrals: Alicia Wing III, MD [Primary Care Provider] - 1-2 days Jame Mccullough MD [Medical Doctor] - 1-2 days Time of Disposition: 18:50
--- NOTE | 2018-10-02 18:46 | XR ---
Left shoulder 3 views. History pain. Comparison none. FINDINGS: I see no fracture nor dislocation. Joint spaces are fairly normal. Soft tissues appear normal. Impression Negative left shoulder exam.
== END 2018-10-02 19:09 | disposition home or self-care (01) ==
LOC: EC 16:27
DX: M25.512 Pain in left shoulder (principal); M79.7 Fibromyalgia; J45.909 Unspecified asthma, uncomplicated; I10 Essential (primary) hypertension; F41.9 Anxiety disorder, unspecified; F32.9 Major depressive disorder, single episode, unspecified; F17.200 Nicotine dependence, unspecified, uncomplicated; Z79.899 Other long term (current) drug therapy; Z91.040 Latex allergy status; Z91.048 Other nonmedicinal substance allergy status; Z88.8 Allergy status to other drugs, medicaments and biological substances; Z88.2 Allergy status to sulfonamides; Z91.018 Allergy to other foods; Z91.041 Radiographic dye allergy status; Z95.5 Presence of coronary angioplasty implant and graft
CPT/HCPCS: 99283

== ENCOUNTER → 2018-10-11 | Day surgery (SDC) | payer MEDICARE, BC ==
[2018-10-11 13:36] VITALS: RESP 18; BMI 25.7
--- NOTE | 2018-10-11 14:39 | USB ---
EXAMINATION TYPE: US biopsy breast VAD LT, MG diagnostic mammo LT wo CAD DATE OF EXAM: 10/11/2018 CLINICAL HISTORY: R92.8 ABN. MARCIE. Abnormal ultrasound. TECHNIQUE: Ultrasound guided core biopsy of left breast with clip placement and follow-up two-view mammogram. COMPARISON: Left breast ultrasound and mammogram September 26, 2018 FINDINGS: The procedure of ultrasound guided core biopsy was explained to the patient. Benefits, alternatives, and risks were discussed. An informed consent was then obtained. The patient was placed in supine positioning for imaging and for the procedure. Preprocedure ultrasound redemonstrates 7 x 2 mm hypoechoic elongated lesion 2:00 position zone A in the left breast. The overlying skin was prepped and draped in usual sterile fashion. Lidocaine buffered with bicarbonate was used as anesthetic into the skin and subcutaneous tissue. Lidocaine with epinephrine is used as anesthetic into the deeper tissue up to area of concern in the left breast. Under ultrasound guidance, a 12-gauge vacuum assisted biopsy gun device was used to obtain 3 core samples. Following this, a biopsy clip was left in lesion. The patient tolerated the procedure well without any immediate complication. The patient was kept in the radiology department for short stay after the procedure and then discharged home in stable condition. Postprocedure mammogram shows successful deployment of clip. IMPRESSION: Successful, uncomplicated ultrasound guided core biopsy of area of concern in the left breast, full pathology results to follow. Low to intermediate index of suspicion noted at time of procedure. Pathology Results: Benign LEFT BREAST, TWO O'CLOCK, ULTRASOUND GUIDED CORE BIOPSY: Fibrocystic changes including fibrosis, small cysts and adenosis. Recommendation Follow up ultrasound of the left breast in 6 months. TATYANA
[2018-10-11 15:31] VITALS: BP 144/67; PULSE 78; TEMP 98
== END | disposition home or self-care (01) ==
LOC: RADUSWWP 12:44
PROVIDERS: ATTEND Surgery
DX: N60.12 Diffuse cystic mastopathy of left breast (principal); N60.22 Fibroadenosis of left breast; R92.8 Other abnormal and inconclusive findings on diagnostic imaging of breast
CPT/HCPCS: 77065; 88305

== ENCOUNTER 2018-10-17 12:38 | Inpatient (IN) | payer MEDICARE, BC ==
[2018-10-17] MEDS ORDERED: HYDROmorphone 1 MG/ML 1 ML SYRINGE IVP STA (14:52)
[2018-10-17] MEDS ORDERED: VANCOMYCIN IV PER PHARMACY 1 EACH MISC MISCELLANE PRN (14:52)
[2018-10-17] MEDS ORDERED: ONDANSETRON 4 MG/2 ML VIAL IVP STA (14:52)
[2018-10-17] MEDS ORDERED: SODIUM CHLORIDE 0.9% 1,000 ML IV ONE (14:52)
[2018-10-17] MEDS ORDERED: PIPERACILLIN-TAZOBACTAM 3.375 GM in SODIUM CHLORIDE 0.9% 100 ML IVPB STA (14:52)
[2018-10-17] MEDS ORDERED: VANCOMYCIN 1,500 MG in SODIUM CHLORIDE 0.9% 250 ML IVPB STA (14:58)
--- NOTE | 2018-10-17 15:06 | ED ---
Recheck HPI - General Chief Complaint: Recheck/Abnormal Lab/Rx Stated Complaint: Lt breast raw/blue Time Seen by Provider: 10/17/18 14:03 Source: patient, RN notes reviewed, old records reviewed Mode of arrival: wheelchair Limitations: no limitations - History of Present Illness Initial Comments: Patient is a 48-year-old female presents emergency department today with complaints of swelling and irritation and pain over her left breast site 6 days after a left breast biopsy. Patient states that she was seen by her primary care physician on the eighth and started on Keflex. Patient reports taking the antibiotic as prescribed but the irritation over her breast is getting worse. She reports that he had blisters over the area which have recently popped. She complains of severe pain extending from the breast of the left axilla. Patient states that she had a breast biopsy due to an abnormal mammogram. - Related Data Home Medications Medication Instructions Recorded Confirmed Gabapentin [Neurontin] 600 mg PO QID 12/21/13 10/17/18 Sennosides [Senna] 17.2 mg PO HS PRN 09/28/16 10/17/18 Cetirizine HCl 10 mg PO DAILY 12/14/16 10/17/18 Folic Acid 1 mg PO DAILY 12/15/16 10/17/18 Furosemide [Lasix] 40 mg PO DAILY 12/15/16 10/17/18 Albuterol Nebulized [Ventolin 2.5 mg INHALATION RT-TID 09/27/17 10/17/18 Nebulized] EPINEPHrine [Epipen 2-Chance] 0.3 mg IM ONCE PRN 09/27/17 10/17/18 Ondansetron Odt [Zofran ODT] 8 mg PO Q8H PRN 09/27/17 10/17/18 Potassium Chloride [Klor-Con 20] 60 meq PO TID 09/27/17 10/17/18 Sertraline HCl [Zoloft] 100 mg PO DAILY 09/27/17 10/17/18 Amitriptyline HCl [Elavil] 75 mg PO HS 10/17/18 10/17/18 Cephalexin [Keflex] 500 mg PO Q12HR 10/17/18 10/17/18 Ergocalciferol (Vitamin D2) 50,000 unit PO ANDERSON 10/17/18 10/17/18 [Vitamin D2] Hydrochlorothiazide [Hydrodiuril] 25 mg PO DAILY 10/17/18 10/17/18 LORazepam [Ativan] 2 mg PO BID PRN 10/17/18 10/17/18 Methocarbamol [Robaxin-750] 750 mg PO TID 10/17/18 10/17/18 Pantoprazole Sodium 40 mg PO DAILY 10/17/18 10/17/18 oxyCODONE HCL 20 mg PO BID PRN 10/17/18 10/17/18 oxyCODONE-APAP 10-325MG [Percocet 1 tab PO DAILY PRN 10/17/18 10/17/18 10-325 mg] Allergies Allergy/AdvReac Type Severity Reaction Status Date / Time latex Allergy Severe Unknown Verified 10/17/18 14:16 adhesive Allergy Rash/Hives Verified 10/17/18 14:16 diphenhydramine Allergy Unknown Verified 10/17/18 14:16 [From Benadryl] enbucrilate Allergy Rash/Hives Verified 10/17/18 14:16 etanercept [From Enbrel] Allergy Unknown Verified 10/17/18 14:16 gluten Allergy Unknown Verified 10/17/18 14:16 hydrocortisone [From Cortef] Allergy Unknown Verified 10/17/18 14:16 meclizine [From Antivert] Allergy Anaphylaxis Verified 10/17/18 14:16 simvastatin [From Zocor] Allergy Unknown Verified 10/17/18 14:16 Sulfa (Sulfonamide Allergy Unknown Verified 10/17/18 14:16 Antibiotics) Iodinated Contrast- Oral and AdvReac Anaphylaxis Verified 10/17/18 14:16 IV Dye [Iodinated Contrast Media - Oral and] Review of Systems ROS Statement: Those systems with pertinent positive or pertinent negative responses have been documented in the HPI. ROS Other: All systems not noted in ROS Statement are negative. Past Medical History Past Medical History: Asthma, Fibromyalgia, Hypertension, Rheumatoid Arthritis (RA) Additional Past Medical History / Comment(s): stress test,endometriosis, migraine, carpel tunnel, lupus, ovarian cysts, per pt said poss seizure or stroke 2 yrs ago but not confirmed, interstitial cystitis,chronic pain syndrome sees at pain clinic,past fall/concussion/whiplash, " benign postual ve rtigo,"did'nt past saccade test or optokinetic test needs to f/u neurologist". w/testing had iv dye/fluid went into rt thumb,told if swelling does'nt go down to see dr at [facility]" BOARDERLINE DM NO MEDS AND NOT CHECK BS History of Any Multi-Drug Resistant Organisms: MRSA Date of last positivie culture/infection: 2011 MDRO Source:: back Past Surgical History: Appendectomy, Section, Heart Catheterization, Hysterectomy, Tubal Ligation Additional Past Surgical History / Comment(s): c- section x 2, throat surgery, jimena renal stents with removal, ovarian cyst removal, heart cath-rt radial used Past Anesthesia/Blood Transfusion Reactions: No Reported Reaction Past Psychological History: Anxiety, Depression Smoking Status: Current some day smoker Past Alcohol Use History: Occasional Past Drug Use History: None Reported - Past Family History Father Family Medical History: CVA/TIA, Diabetes Mellitus, Myocardial Infarction (ID) Mother Family Medical History: CVA/TIA, Rheumatoid Arthritis (RA) Additional Family Medical History / Comment(s): Schizo, heart problems General Exam - General Exam Comments Initial Comments: 48-year-old female. Alert and oriented 3. Patient appears in moderate discomfort. Limitations: no limitations General appearance: alert, in no apparent distress Head exam: Present: atraumatic, normocephalic, normal inspection Eye exam: Present: normal appearance, PERRL, EOMI. Absent: scleral icterus, conjunctival injection, periorbital swelling ENT exam: Present: normal exam, mucous membranes moist Neck exam: Present: normal inspection. Absent: tenderness, meningismus, lymphadenopathy Respiratory exam: Present: normal lung sounds bilaterally, other (Left breast has an area of open cellulitic changes measuring 10 cm x 12 cm. Area is around the area and nipple.). Absent: respiratory distress, wheezes, rales, rhonchi, stridor Cardiovascular Exam: Present: regular rate, normal rhythm, normal heart sounds. Absent: systolic murmur, diastolic murmur, rubs, gallop, clicks GI/Abdominal exam: Present: soft, normal bowel sounds. Absent: distended, tenderness, guarding, rebound, rigid Course Vital Signs 10/17/18 13:06 Temperature 98.6 F Pulse Rate 94 Respiratory 18 Rate Blood Pressure 122/82 O2 Sat by Pulse 99 Oximetry Medical Decision Making - Medical Decision Making Patient is a 48-year-old female present today for failed outpatient treatment for left breast cellulitis after a biopsy. Patient HE was on 10/11/2018. She's been on Keflex for the past 5 days. At this time Patient received a dose of IV fluids. Patient frequently ask about pain medication. Patient was given 1 dose of Dilaudid and EC. She started on Zosyn and vancomycin. Blood work was unremarkable. We did obtain blood cultures and anaerobic wound culture. At this time Patient was admitted to medicine with continued antibiotics pending cultures. QUESTIONS were answered for Patient. - Lab Data Result diagrams: 10/17/18 15:12 10/17/18 15:12 Lab Results 10/17/18 10/17/18 10/17/18 Range/Units 15:12 15:12 15:12 WBC 6.0 (3.8-10.6) k/uL RBC 4.46 (3.80-5.40) m/uL Hgb 13.7 (11.4-16.0) gm/dL Hct 40.8 (34.0-46.0) % MCV 91.5 (80.0-100.0) fL MCH 30.7 (25.0-35.0) pg MCHC 33.5 (31.0-37.0) g/dL RDW 12.4 (11.5-15.5) % Plt Count 219 (150-450) k/uL Neutrophils % 73 % Lymphocytes % 21 % Monocytes % 5 % Eosinophils % 1 % Basophils % 0 % Neutrophils # 4.4 (1.3-7.7) k/uL Lymphocytes # 1.2 (1.0-4.8) k/uL Monocytes # 0.3 (0-1.0) k/uL Eosinophils # 0.1 (0-0.7) k/uL Basophils # 0.0 (0-0.2) k/uL Sodium 138 (137-145) mmol/L Potassium 3.5 (3.5-5.1) mmol/L Chloride 98 (98-107) mmol/L Carbon Dioxide 31 H (22-30) mmol/L Anion Gap 9 mmol/L BUN 9 (7-17) mg/dL Creatinine 0.71 (0.52-1.04) mg/dL Est GFR (CKD-EPI)AfAm >90 (>60 ml/min/1.73 sqM) Est GFR (CKD-EPI)NonAf >90 (>60 ml/min/1.73 sqM) Glucose 91 (74-99) mg/dL Plasma Lactic Acid Dat 0.9 (0.7-2.0) mmol/L Calcium 9.8 (8.4-10.2) mg/dL Total Bilirubin 0.5 (0.2-1.3) mg/dL AST 24 (14-36) U/L ALT 32 (9-52) U/L Alkaline Phosphatase 68 (38-126) U/L Total Protein 7.8 (6.3-8.2) g/dL Albumin 4.7 (3.5-5.0) g/dL Urine Color Urine Appearance (Clear) Urine pH (5.0-8.0) Ur Specific [place] (1.001-1.035) Urine Protein (Negative) Urine Glucose (UA) (Negative) Urine Ketones (Negative) Urine Blood (Negative) Urine Nitrite (Negative) Urine Bilirubin (Negative) Urine Urobilinogen (<2.0) mg/dL Ur Leukocyte Esterase (Negative) Urine WBC (0-5) /hpf Ur Squamous Epith Cells (0-4) /hpf Urine Bacteria (None) /hpf Hyaline Casts (0-2) /lpf Urine Mucus (None) /hpf 10/17/18 Range/Units 15:12 WBC (3.8-10.6) k/uL RBC (3.80-5.40) m/uL Hgb (11.4-16.0) gm/dL Hct (34.0-46.0) % MCV (80.0-100.0) fL MCH (25.0-35.0) pg MCHC (31.0-37.0) g/dL RDW (11.5-15.5) % Plt Count (150-450) k/uL Neutrophils % % Lymphocytes % % Monocytes % % Eosinophils % % Basophils % % Neutrophils # (1.3-7.7) k/uL Lymphocytes # (1.0-4.8) k/uL Monocytes # (0-1.0) k/uL Eosinophils # (0-0.7) k/uL Basophils # (0-0.2) k/uL Sodium (137-145) mmol/L Potassium (3.5-5.1) mmol/L Chloride (98-107) mmol/L Carbon Dioxide (22-30) mmol/L Anion Gap mmol/L BUN (7-17) mg/dL Creatinine (0.52-1.04) mg/dL Est GFR (CKD-EPI)AfAm (>60 ml/min/1.73 sqM) Est GFR (CKD-EPI)NonAf (>60 ml/min/1.73 sqM) Glucose (74-99) mg/dL Plasma Lactic Acid Dat (0.7-2.0) mmol/L Calcium (8.4-10.2) mg/dL Total Bilirubin (0.2-1.3) mg/dL AST (14-36) U/L ALT (9-52) U/L Alkaline Phosphatase (38-126) U/L Total Protein (6.3-8.2) g/dL Albumin (3.5-5.0) g/dL Urine Color Colorless Urine Appearance Clear (Clear) Urine pH 5.0 (5.0-8.0) Ur Specific [place] 1.003 (1.001-1.035) Urine Protein Negative (Negative) Urine Glucose (UA) Negative (Negative) Urine Ketones Negative (Negative) Urine Blood Negative (Negative) Urine Nitrite Negative (Negative) Urine Bilirubin Negative (Negative) Urine Urobilinogen <2.0 (<2.0) mg/dL Ur Leukocyte Esterase Trace H (Negative) Urine WBC 2 (0-5) /hpf Ur Squamous Epith Cells <1 (0-4) /hpf Urine Bacteria Rare H (None) /hpf Hyaline Casts 3 H (0-2) /lpf Urine Mucus Rare H (None) /hpf Disposition Clinical Impression: Failure of outpatient treatment, Cellulitis of left breast Disposition: HOME SELF-CARE Condition: Good Is patient prescribed a controlled substance at d/c from ED?: No Referrals: Alicia Wing III, MD [Primary Care Provider] - 1-2 days Time of Disposition: 16:40
[2018-10-17] MEDS: SODIUM CHLORIDE 0.9% 1,000 ML IV SCH (15:32)
[2018-10-17 15:37] LABS: ALT 32 U/L (9-52); AST 24 U/L (14-36); Albumin 4.7 g/dL (3.5-5.0); Alkaline Phosphatase 68 U/L (38-126); Anion Gap 9 mmol/L; Blood Urea Nitrogen 9 mg/dL (7-17); Calcium 9.8 mg/dL (8.4-10.2); Carbon Dioxide 31 mmol/L (22-30); Chloride 98 mmol/L (98-107); Glucose 91 mg/dL (74-99); Potassium 3.5 mmol/L (3.5-5.1); Sodium 138 mmol/L (137-145); Total Bilirubin 0.5 mg/dL (0.2-1.3); Total Protein 7.8 g/dL (6.3-8.2)
[2018-10-17 15:38] LABS: Appearance,Urine Clear (Clear); Bacteria,Urine Rare /hpf; Bilirubin,Urine Negative (Negative); Blood,Urine Negative (Negative); Color,Urine Colorless; Glucose,Urine (UA) Negative (Negative); Hyaline Casts,Urine 3 /lpf (0-2); Ketones,Urine Negative (Negative); Leukocyte Esterase,Urine Trace (Negative); Mucus,Urine Rare /hpf; Nitrite,Urine Negative (Negative); Protein,Urine Negative (Negative); Specific Gravity,Urine 1.003 (1.001-1.035); Squamous Epithelial Cell,Urine <1 /hpf (0-4); Urobilinogen,Urine <2.0 mg/dL (<2.0); WBC,Urine 2 /hpf (0-5)
[2018-10-17 15:46] LABS: Basophils % (A) 0 %; Eosinophils # (A) 0.1 k/uL (0-0.7); Eosinophils % (A) 1 %; HCT 40.8 % (34.0-46.0); HGB 13.7 gm/dL (11.4-16.0); Lymphocytes # (A) 1.2 k/uL (1.0-4.8); Lymphocytes % (A) 21 %; MCH 30.7 pg (25.0-35.0); MCHC 33.5 g/dL (31.0-37.0); MCV 91.5 fL (80.0-100.0); Mean Platelet Volume 6.9; Monocytes # (A) 0.3 k/uL (0-1.0); Monocytes % (A) 5 %; Neutrophils # (A) 4.4 k/uL (1.3-7.7); Neutrophils % (A) 73 %; Platelet Count 219 k/uL (150-450); RBC 4.46 m/uL (3.80-5.40); RDW 12.4 % (11.5-15.5)
[2018-10-17] MEDS ORDERED: ONDANSETRON 4 MG/2 ML VIAL IVP PRN (16:41)
[2018-10-17] MEDS ORDERED: ACETAMINOPHEN TAB 325 MG TAB PO PRN (16:41)
[2018-10-17] MEDS ORDERED: IBUPROFEN 400 MG TAB PO PRN (16:41)
[2018-10-17] MEDS ORDERED: NALOXONE 0.4 MG/ML 1 ML VIAL IV PRN (16:41)
[2018-10-17] MEDS: HYDROmorphone 1 MG/ML 1 ML SYRINGE IVP PRN ×2 (19:06→22:36)
[2018-10-17] MEDS: VANCOMYCIN 1,250 MG in SODIUM CHLORIDE 0.9% 250 ML IVPB SCH (23:56)
[2018-10-17] MEDS: KETOROLAC 30 MG/ML 1 ML VIAL IVP PRN (23:56)
[2018-10-18] MEDS: PIPERACILLIN-TAZOBACTAM 3.375 GM in SODIUM CHLORIDE 0.9% 100 ML IVPB SCH ×3 (00:02→16:49)
[2018-10-18] MEDS: SODIUM CHLORIDE 0.9% 1,000 ML IV SCH ×3 (00:24→20:54)
--- NOTE | 2018-10-18 00:44 | P.HPIM ---
History of Present Illness H&P Date: 10/17/18 Chief Complaint: Left breast pain, swelling and redness Patient is a 48-year-old female with a known history of asthma, fibromyalgia, hypertension and rheumatoid arthritis and history of migraine headaches who recently had left breast biopsy due to abnormal mammogram came to ER with complaints of swelling, pain and irritation over the left breast of having left breast biopsy about a week ago. Patient says that she's been having left breast irritation swelling or redness and pain worsening for the past 4 days. Patient was seen by her primary care physician and was started on Keflex. Patient presented ER with worsening pain. Patient also reports that she had blisters over the area which have recently popped. Patient is currently complaining of severe pain and requesting IV pain medications. Review of Systems Constitutional: Patient denies any fever or chills . No generalized weakness or weight loss. Abdomen: Patient denied nausea vomiting and diarrhea and abdominal pain. Cardiovascular: Patient denies any chest pain or short of breath no palpitations. Left breast pain swelling and redness. Respiratory: patient denied any cough is from production. No shortness of breath Neurologic: Patient denied any numbness or tingling headache. Musculoskeletal: Patient denies any complaints of joint swelling or deformity. Skin: Negative Psychiatric: Negative Endocrine: No heat or cold intolerance. No recent weight gain. Genitourinary: No dysuria or hematuria. All other 14 point ROS negative except the above Past Medical History Past Medical History: Asthma, Fibromyalgia, Hypertension, Rheumatoid Arthritis (RA) Additional Past Medical History / Comment(s): stress test,endometriosis, migraine, carpel tunnel, lupus, ovarian cysts, per pt said poss seizure or stroke 2 yrs ago but not confirmed, interstitial cystitis,chronic pain syndrome sees at pain clinic,past fall/concussion/whiplash, " benign postual vertigo,"did'nt past saccade test or optokinetic test needs to f/u neurologist". w/testing had iv dye/fluid went into rt thumb,told if swelling does'nt go down to see at [facility]" BOARDERLINE DM NO MEDS AND NOT CHECK BS History of Any Multi-Drug Resistant Organisms: MRSA Date of last positivie culture/infection: 2011 MDRO Source:: back Past Surgical History: Appendectomy, Section, Heart Catheterization, Hysterectomy, Tubal Ligation Additional Past Surgical History / Comment(s): c- section x 2, throat surgery, jimena renal stents with removal, ovarian cyst removal, heart cath-rt radial used Past Anesthesia/Blood Transfusion Reactions: No Reported Reaction Past Psychological History: Anxiety, Depression Smoking Status: Current some day smoker Past Alcohol Use History: Occasional Past Drug Use History: None Reported - Past Family History Father Family Medical History: CVA/TIA, Diabetes Mellitus, Myocardial Infarction ([place]) Mother Family Medical History: CVA/TIA, Rheumatoid Arthritis (RA) Additional Family Medical History / Comment(s): Schizo, heart problems Medications and Allergies Home Medications Medication Instructions Recorded Confirmed Type Gabapentin [Neurontin] 600 mg PO QID 12/21/13 10/17/18 History Sennosides [Senna] 17.2 mg PO HS PRN 09/28/16 10/17/18 History Cetirizine HCl 10 mg PO DAILY 12/14/16 10/17/18 History Folic Acid 1 mg PO DAILY 12/15/16 10/17/18 History Furosemide [Lasix] 40 mg PO DAILY 12/15/16 10/17/18 History Albuterol Nebulized [Ventolin 2.5 mg INHALATION RT-TID 09/27/17 10/17/18 History Nebulized] EPINEPHrine [Epipen 2-Chance] 0.3 mg IM ONCE PRN 09/27/17 10/17/18 History Ondansetron Odt [Zofran ODT] 8 mg PO Q8H PRN 09/27/17 10/17/18 History Potassium Chloride [Klor-Con 20] 60 meq PO TID 09/27/17 10/17/18 History Sertraline HCl [Zoloft] 100 mg PO DAILY 09/27/17 10/17/18 History Amitriptyline HCl [Elavil] 75 mg PO HS 10/17/18 10/17/18 History Cephalexin [Keflex] 500 mg PO Q12HR 10/17/18 10/17/18 History Ergocalciferol (Vitamin D2) 50,000 unit PO ANDERSON 10/17/18 10/17/18 History [Vitamin D2] Hydrochlorothiazide [Hydrodiuril] 25 mg PO DAILY 10/17/18 10/17/18 History LORazepam [Ativan] 2 mg PO BID PRN 10/17/18 10/17/18 History Methocarbamol [Robaxin-750] 750 mg PO TID 10/17/18 10/17/18 History Pantoprazole Sodium 40 mg PO DAILY 10/17/18 10/17/18 History oxyCODONE HCL 20 mg PO BID PRN 10/17/18 10/17/18 History oxyCODONE-APAP 10-325MG [Percocet 1 tab PO DAILY PRN 10/17/18 10/17/18 History 10-325 mg] Allergies Allergy/AdvReac Type Severity Reaction Status Date / Time latex Allergy Severe Unknown Verified 10/17/18 14:16 adhesive Allergy Rash/Hives Verified 10/17/18 14:16 diphenhydramine Allergy Unknown Verified 10/17/18 14:16 [From Benadryl] enbucrilate Allergy Rash/Hives Verified 10/17/18 14:16 etanercept [From Enbrel] Allergy Unknown Verified 10/17/18 14:16 gluten Allergy Unknown Verified 10/17/18 14:16 hydrocortisone [From Cortef] Allergy Unknown Verified 10/17/18 14:16 meclizine [From Antivert] Allergy Anaphylaxis Verified 10/17/18 14:16 simvastatin [From Zocor] Allergy Unknown Verified 10/17/18 14:16 Sulfa (Sulfonamide Allergy Unknown Verified 10/17/18 14:16 Antibiotics) Iodinated Contrast- Oral and AdvReac Anaphylaxis Verified 10/17/18 14:16 IV Dye [Iodinated Contrast Media - Oral and] Physical Exam Vitals: Vital Signs Temp Pulse Pulse Resp BP BP Pulse Ox 10/17/18 18:48 97.6 F 75 16 113/76 97 10/17/18 17:59 98.4 F 87 20 115/77 10/17/18 17:30 90 18 118/80 97 10/17/18 17:00 99/69 10/17/18 16:30 18 109/78 97 10/17/18 13:06 98.6 F 94 18 122/82 99 Intake and Output 10/17/18 10/17/18 10/17/18 06:59 14:59 22:59 Intake Total 240 Balance 240 Intake: Oral 240 Other: Weight 69.4 kg PHYSICAL EXAMINATION: Patient is lying in the bed comfortably, no acute distress, awake alert and oriented. Anxious. HEENT: Normocephalic. Neck is supple. Pupils reactive. Nostrils clear. Oral cavity is moist. Ears reveal no drainage. Neck reveals no JVD, carotid bruits, or thyromegaly. CHEST EXAMINATION: Trachea is central. Symmetrical expansion. Lung elder clear to auscultation and percussion. Left breast redness and swelling with skin excoriation. Biopsy site showed no drainage or fluctuation. CARDIAC: Normal S1, S2 with no gallops. No murmurs ABDOMEN: Soft. Bowel sounds normal. No organomegaly. No abdominal bruits. Extremities: reveal no edema. No clubbing or cyanosis Neurologically awake, alert, oriented x3 with well-coordinated movements. No focal deficits noted Skin: No rash or skin lesions. Psychiatric: Coperative. Nonsuicidal. Anxious. Musculoskeletal: No joint swelling or deformity. Normal range of motion. Results CBC & Chem 7: 10/17/18 15:12 10/17/18 15:12 Labs: Abnormal Lab Results - Last 24 Hours (Table) 10/17/18 10/17/18 Range/Units 15:12 15:12 Carbon Dioxide 31 H (22-30) mmol/L Ur Leukocyte Esterase Trace H (Negative) Urine Bacteria Rare H (None) /hpf Hyaline Casts 3 H (0-2) /lpf Urine Mucus Rare H (None) /hpf Thrombosis Risk Factor Assmnt - DVT/VTE Prophylaxis DVT/VTE Prophylaxis: Pharmacologic Prophylaxis ordered Assessment and Plan Assessment: Left breast skin excoriation with cellulitis. Possible abscess cannot be excluded with severe pain. Recent left breast biopsy due to abnormal mammogram Asthma Fibromyalgia Hypertension Rheumatology disease History of endometriosis History of migraine headache History of benign positional vertigo History of MRSA Anxiety/depression Nicotine addiction DVT prophylaxis with heparin subcu Plan: Patient will be continued on pain management with Dilaudid IV. Continue with antibiotics and cough vancomycin and Zosyn. Gen. surgery will be consulted. Current with home medications and follow up closely. Patient is requesting IV pain medications and Zofran for nausea. Further recommendations based on the clinical course. Time with Patient: Greater than 30
[2018-10-18] MEDS: HYDROmorphone 1 MG/ML 1 ML SYRINGE IVP PRN ×5 (02:48→20:18)
[2018-10-18] MEDS: HEPARIN SODIUM,PORCINE 5,000 UNIT/ML 1 ML VIAL SQ SCH ×3 (08:09→23:57)
[2018-10-18] MEDS: VANCOMYCIN 1,250 MG in SODIUM CHLORIDE 0.9% 250 ML IVPB SCH ×2 (08:16→16:49)
[2018-10-18] MEDS: KETOROLAC 30 MG/ML 1 ML VIAL IVP PRN ×2 (08:16→18:23)
[2018-10-18] MEDS ORDERED: oxyCODONE ER 20 MG TAB.ER.12H PO PRN (08:44)
[2018-10-18] MEDS ORDERED: oxyCODONE-APAP 10-325MG 1 EACH TAB PO PRN (08:44)
[2018-10-18] MEDS ORDERED: IPRATROPIUM-ALBUTEROL 3 ML NEB INHALATION PRN (08:48)
[2018-10-18] MEDS ORDERED: PANTOPRAZOLE 40 MG/10 ML VIAL IV SCH (09:00)
[2018-10-18] MEDS: HYDROCHLOROTHIAZIDE 25 MG TAB PO SCH (09:34)
[2018-10-18] MEDS: GABAPENTIN 300 MG CAP PO SCH ×4 (09:34→20:53)
[2018-10-18] MEDS: FUROSEMIDE 40 MG TAB PO SCH (09:34)
[2018-10-18] MEDS: SERTRALINE 100 MG TAB PO SCH (09:35)
[2018-10-18] MEDS: LORazepam 1 MG TAB PO PRN (09:35)
[2018-10-18] MEDS: POTASSIUM CHLORIDE ER 20 MEQ TAB.ER PO SCH ×2 (09:35→20:53)
[2018-10-18] MEDS: LORATADINE 10 MG TAB PO SCH (09:35)
[2018-10-18] MEDS: METHOCARBAMOL 750 MG TAB PO SCH ×3 (10:29→20:53)
[2018-10-18] MEDS: FOLIC ACID 1 MG TAB PO SCH (11:08)
--- NOTE | 2018-10-18 12:25 | P.GSCN ---
History of Present Illness Consult date: 10/18/18 Reason for Consult: Left breast cellulitis History of present illness: Patient comes in the hospital with complaints of pain left breast. Patient underwent ultrasound core biopsy of an abnormality measuring 7 x 2 mm in the left breast last week. She states that following that she has developed gradual blisters and subsequent draining sores where the tape was utilized. The patient describes increasing pain. She apparently was febrile at one point prior to admission. Here she is afebrile. White blood cell count is normal. She states she had a similar episode with a previous right-sided breast biopsy in the past. She remembers using Silvadene for wound care at that time. Tolerating diet. Pathology from the biopsy benign. Six-month follow-up ultrasound was advised by radiology. Patient actually had an appointment to see me in the office today regarding the biopsy. Review of Systems The patient denies any acute changes in vision or hearing, no dysphagia or odynophagia, no chest pain or shortness of breath, no dysuria or hematuria, no headache, no runny nose, no rectal bleeding or melena, no unexplained weight loss Past Medical History Past Medical History: Asthma, Fibromyalgia, Hypertension, Rheumatoid Arthritis (RA) Additional Past Medical History / Comment(s): stress test,endometriosis, migraine, carpel tunnel, lupus, ovarian cysts, per pt said poss seizure or stroke 2 yrs ago but not confirmed, interstitial cystitis,chronic pain syndrome sees at pain clinic,past fall/concussion/whiplash, " benign postual ama tigo,"did'nt past saccade test or optokinetic test needs to f/u neurologist". w/testing had iv dye/fluid went into rt thumb,told if swelling does'nt go down to see at [facility]" BOARDERLINE DM NO MEDS AND NOT CHECK BS History of Any Multi-Drug Resistant Organisms: MRSA Year Discovered:: 2011 MDRO Source:: back Past Surgical History: Appendectomy, Section, Heart Catheterization, Hysterectomy, Tubal Ligation Additional Past Surgical History / Comment(s): c- section x 2, throat surgery, jimena renal stents with removal, ovarian cyst removal, heart cath-rt radial used Past Anesthesia/Blood Transfusion Reactions: No Reported Reaction Past Psychological History: Anxiety, Depression Smoking Status: Current some day smoker Past Alcohol Use History: Occasional Past Drug Use History: None Reported - Past Family History Father Family Medical History: CVA/TIA, Diabetes Mellitus, Myocardial Infarction ([place]) Mother Family Medical History: CVA/TIA, Rheumatoid Arthritis (RA) Additional Family Medical History / Comment(s): Schizo, heart problems Medications and Allergies Home Medications Medication Instructions Recorded Confirmed Type Gabapentin [Neurontin] 600 mg PO QID 12/21/13 10/17/18 History Sennosides [Senna] 17.2 mg PO HS PRN 09/28/16 10/17/18 History Cetirizine HCl 10 mg PO DAILY 12/14/16 10/17/18 History Folic Acid 1 mg PO DAILY 12/15/16 10/17/18 History Furosemide [Lasix] 40 mg PO DAILY 12/15/16 10/17/18 History Albuterol Nebulized [Ventolin 2.5 mg INHALATION RT-TID 09/27/17 10/17/18 History Nebulized] EPINEPHrine [Epipen 2-Chance] 0.3 mg IM ONCE PRN 09/27/17 10/17/18 History Ondansetron Odt [Zofran ODT] 8 mg PO Q8H PRN 09/27/17 10/17/18 History Potassium Chloride [Klor-Con 20] 60 meq PO TID 09/27/17 10/17/18 History Sertraline HCl [Zoloft] 100 mg PO DAILY 09/27/17 10/17/18 History Amitriptyline HCl [Elavil] 75 mg PO HS 10/17/18 10/17/18 History Cephalexin [Keflex] 500 mg PO Q12HR 10/17/18 10/17/18 History Ergocalciferol (Vitamin D2) 50,000 unit PO ANDERSON 10/17/18 10/17/18 History [Vitamin D2] Hydrochlorothiazide [Hydrodiuril] 25 mg PO DAILY 10/17/18 10/17/18 History LORazepam [Ativan] 2 mg PO BID PRN 10/17/18 10/17/18 History Methocarbamol [Robaxin-750] 750 mg PO TID 10/17/18 10/17/18 History Pantoprazole Sodium 40 mg PO DAILY 10/17/18 10/17/18 History oxyCODONE HCL 20 mg PO BID PRN 10/17/18 10/17/18 History oxyCODONE-APAP 10-325MG [Percocet 1 tab PO DAILY PRN 10/17/18 10/17/18 History 10-325 mg] Allergies Allergy/AdvReac Type Severity Reaction Status Date / Time latex Allergy Severe Unknown Verified 10/17/18 14:16 gluten Allergy Mild Unknown Verified 10/18/18 09:40 adhesive Allergy Rash/Hives Verified 10/17/18 14:16 diphenhydramine Allergy Unknown Verified 10/17/18 14:16 [From Benadryl] enbucrilate Allergy Rash/Hives Verified 10/17/18 14:16 etanercept [From Enbrel] Allergy Unknown Verified 10/17/18 14:16 hydrocortisone [From Cortef] Allergy Unknown Verified 10/17/18 14:16 meclizine [From Antivert] Allergy Anaphylaxis Verified 10/17/18 14:16 simvastatin [From Zocor] Allergy Unknown Verified 10/17/18 14:16 Sulfa (Sulfonamide Allergy Unknown Verified 10/17/18 14:16 Antibiotics) Iodinated Contrast- Oral and AdvReac Anaphylaxis Verified 10/17/18 14:16 IV Dye [Iodinated Contrast Media - Oral and] Surgical - Exam Vital Signs Temp Pulse Resp BP Pulse Ox 98.6 F 94 18 122/82 99 10/17/18 13:06 10/17/18 13:06 10/17/18 13:06 10/17/18 13:06 10/17/18 13:06 Physical exam: General: Well-developed, well-nourished HEENT: Normocephalic, sclerae nonicteric Right breast: No masses, no adenopathy, no wounds Left breast: Multiple superficial areas of skin breakdown extending from 9 to 4:00, slight erythema, mild tenderness, no fluctuant areas Abdomen: Nontender, nondistended Extremities: No edema Neuro: Alert and oriented Results - Labs 10/17/18 15:12 10/17/18 15:12 Abnormal Lab Results - Last 24 Hours (Table) 10/17/18 10/17/18 Range/Units 15:12 15:12 Carbon Dioxide 31 H (22-30) mmol/L Ur Leukocyte Esterase Trace H (Negative) Urine Bacteria Rare H (None) /hpf Hyaline Casts 3 H (0-2) /lpf Urine Mucus Rare H (None) /hpf Microbiology - Last 24 Hours (Table) 10/17/18 16:13 Gram Stain - Preliminary Breast - Left Wound Culture - Preliminary Diabetes panel 10/17/18 Range/Units 15:12 Sodium 138 (137-145) mmol/L Potassium 3.5 (3.5-5.1) mmol/L Chloride 98 (98-107) mmol/L Carbon Dioxide 31 H (22-30) mmol/L BUN 9 (7-17) mg/dL Creatinine 0.71 (0.52-1.04) mg/dL Glucose 91 (74-99) mg/dL Calcium 9.8 (8.4-10.2) mg/dL AST 24 (14-36) U/L ALT 32 (9-52) U/L Alkaline Phosphatase 68 (38-126) U/L Total Protein 7.8 (6.3-8.2) g/dL Albumin 4.7 (3.5-5.0) g/dL Calcium panel 10/17/18 Range/Units 15:12 Calcium 9.8 (8.4-10.2) mg/dL Albumin 4.7 (3.5-5.0) g/dL Pituitary panel 10/17/18 Range/Units 15:12 Sodium 138 (137-145) mmol/L Potassium 3.5 (3.5-5.1) mmol/L Chloride 98 (98-107) mmol/L Carbon Dioxide 31 H (22-30) mmol/L BUN 9 (7-17) mg/dL Creatinine 0.71 (0.52-1.04) mg/dL Glucose 91 (74-99) mg/dL Calcium 9.8 (8.4-10.2) mg/dL Adrenal panel 10/17/18 Range/Units 15:12 Sodium 138 (137-145) mmol/L Potassium 3.5 (3.5-5.1) mmol/L Chloride 98 (98-107) mmol/L Carbon Dioxide 31 H (22-30) mmol/L BUN 9 (7-17) mg/dL Creatinine 0.71 (0.52-1.04) mg/dL Glucose 91 (74-99) mg/dL Calcium 9.8 (8.4-10.2) mg/dL Total Bilirubin 0.5 (0.2-1.3) mg/dL AST 24 (14-36) U/L ALT 32 (9-52) U/L Alkaline Phosphatase 68 (38-126) U/L Total Protein 7.8 (6.3-8.2) g/dL Albumin 4.7 (3.5-5.0) g/dL Assessment and Plan (1) Cellulitis of left breast Narrative/Plan: Patient with cellulitis at site of wounds related to tape rao. No drainable abscess suspected currently. Continue IV antibiotics. Continue pain control. Begin Silvadene cream to the sites. Avoid any tape on the torso. Current Visit: Yes Status: Acute Code(s): N61.0 - MASTITIS WITHOUT ABSCESS SNOMED Code(s): 77722469
[2018-10-18] MEDS: ONDANSETRON ODT 8 MG TAB.RAPDIS PO PRN (14:57)
[2018-10-18] MEDS: AMITRIPTYLINE HCL 25 MG TAB PO SCH (20:53)
[2018-10-19] MEDS: VANCOMYCIN 1,250 MG in SODIUM CHLORIDE 0.9% 250 ML IVPB SCH ×3 (00:02→21:29)
--- NOTE | 2018-10-19 00:02 | CONS ---
CONSULTATION DATE OF SERVICE: 10/18/2018. REASON FOR CONSULTATION: Left breast cellulitis and wound. HISTORY OF PRESENT ILLNESS: The patient is a 48 -year-old female, who is status post left breast biopsy completed on 10/11/2018 for abnormal mammogram. Patient subsequently developed pain and swelling and redness for which the patient apparently follows up with her primary care physician and the patient was started on oral Keflex. However, the swelling and the redness continued to get worse. It was becoming painful. Pain described to be throbbing almost 7 to 8 out of 10 with no radiation. Had no significant drainage. With persistent symptoms, the patient did present to the [facility] ER. The patient was evaluated by the ER physician. Patient was started on vancomycin and admitted to the hospital. Infectious disease was consulted for further recommendation regarding antibiotic therapy. REVIEW OF SYSTEMS: Positive points have been mentioned in HPI has been negative. PAST MEDICAL HISTORY: Fibromyalgia, hypertension, rheumatoid arthritis, asthma, endometriosis, history of cystitis. Previous history of MRSA infection from the back. PAST SURGICAL HISTORY: Appendectomy, , heart catheterization, hysterectomy, tubal ligation. SOCIAL HISTORY: Current everyday smoker. Occasionally drinks. No drug use. FAMILY HISTORY: Father has CVA/TIA and . ALLERGIES: . MEDICATION: Include the patient is currently on folic acid Toradol, Claritin, Ativan, Robaxin, vancomycin 1250 q.8 hours and Zosyn 3.7 g q.8 hours. PHYSICAL EXAMINATION: Blood pressure is 108/69, pulse of 59, temperature 97.9. She is 92% on room air. General description is a middle-aged female lying in bed in no distress. No tachypnea or accessory muscles of respiration use. HEENT: Shows no pallor or scleral icterus. Oral mucosa membranes are dry. No pharyngeal erythema or thrush. Neck: Trachea central. No thyromegaly. LUNGS: Unlabored breathing. Clear to auscultation anteriorly. No wheeze or crackles. Heart S1, S2. Regular rate and rhythm. ABDOMEN: Soft, no tenderness. EXTREMITIES: No edema of the feet. Examination of the left ulceration with significant soft tissue, no surrounding erythema. No induration or fluctuation was noticed or any drainage. LABS: Hemoglobin 13.7, white count 6.0, electrolytes have been normal. Liver enzymes are normal. BUN of 9, creatinine 0.71. UA with trace leukocyte esterases. Did have a wound culture obtained from the left breast and blood culture has been negative so far. DIAGNOSTIC IMPRESSION AND PLAN: Patient with left breast cellulitis. The patient had a left breast biopsy for abnormal mammogram failing outpatient oral Keflex therapy. The patient did have a previous history of MRSA infection with question of possible MRSA infection with evidence of cellulitis and no evidence of underlying deep infection or abscess. PLAN: 1. Vancomycin pharmacy to dose target of 15 while watching the kidney function closely. Clinically doubt gram-negative infection and will discontinue the Zosyn. 2. Silvadene cream to the open wound area. 3. We will follow up on her condition as well as cultures to further adjust medication if needed. Thank you for this consultation. We will follow this patient along with you. MMODL / IJN: [id number] /
[2018-10-19] MEDS: HYDROmorphone 1 MG/ML 1 ML SYRINGE IVP PRN ×7 (00:03→22:52)
[2018-10-19 05:19] LABS: Appearance,Urine Clear (Clear); Bilirubin,Urine Negative (Negative); Blood,Urine Negative (Negative); Color,Urine Light Yellow; Glucose,Urine (UA) Negative (Negative); Ketones,Urine Negative (Negative); Leukocyte Esterase,Urine Negative (Negative); Nitrite,Urine Negative (Negative); Protein,Urine Negative (Negative); Specific Gravity,Urine 1.005 (1.001-1.035); Urobilinogen,Urine <2.0 mg/dL (<2.0)
[2018-10-19] MEDS ORDERED: VANCOMYCIN TROUGH DUE 1 EACH MISC MISCELLANE ONE (07:00)
[2018-10-19] MEDS: SODIUM CHLORIDE 0.9% 1,000 ML IV SCH ×2 (07:44→18:28)
[2018-10-19] MEDS: KETOROLAC 30 MG/ML 1 ML VIAL IVP PRN ×3 (08:03→21:29)
[2018-10-19] MEDS: LORATADINE 10 MG TAB PO SCH (08:05)
[2018-10-19] MEDS: GABAPENTIN 300 MG CAP PO SCH ×4 (08:06→21:08)
[2018-10-19] MEDS: HYDROCHLOROTHIAZIDE 25 MG TAB PO SCH (08:06)
[2018-10-19] MEDS: PANTOPRAZOLE 40 MG TABLET PO SCH (08:06)
[2018-10-19] MEDS: FUROSEMIDE 40 MG TAB PO SCH (08:07)
[2018-10-19] MEDS: POTASSIUM CHLORIDE ER 20 MEQ TAB.ER PO SCH ×2 (08:07→21:08)
[2018-10-19] MEDS: METHOCARBAMOL 750 MG TAB PO SCH ×3 (08:08→21:08)
[2018-10-19] MEDS: SERTRALINE 100 MG TAB PO SCH (08:08)
[2018-10-19] MEDS: HEPARIN SODIUM,PORCINE 5,000 UNIT/ML 1 ML VIAL SQ SCH ×3 (08:10→23:45)
--- NOTE | 2018-10-19 12:29 | P.PN ---
<Darline Rainey Prabhjot - Last Filed: 10/19/18 12:22> Subjective Progress Note Date: 10/19/18 CHIEF COMPLAINT: Left breast cellulitis HISTORY OF PRESENT ILLNESS: Patient seen and examined at the bedside. Patient reports her pain as tolerable at this time. Currently, left breast with silvadene and telfa pads with medical bra. Dressing was recently changed per nursing. Patients vital signs are stable. Oxygen sats 92%. Afebrile. She remains on IV antibiotics. Infectious disease is following. Blood cultures are negative at 24 hours. Left breast wound culture shows no growth at 24 hour twin. PHYSICAL EXAM: VITAL SIGNS: Currently stable. GENERAL: Well-developed in no acute distress. HEENT: No sclera icterus. Extraocular movements grossly intact. Moist buccal mucosa. Head is atraumatic, normocephalic. Hears conversational speech. No nasal drainage. NECK: Supple without lymphadenopathy. CHEST: Non-labored respirations and equal bilateral excursions. CARDIOVASCULAR: Regular rate with regular rhythm. Palpable 2+ radial pulses. ABDOMEN: Soft. Nondistended. Nontender. MUSCULOSKELETAL: No clubbing, cyanosis or edema. NEUROLOGIC: No focal or lateralizing signs. Cranial nerves II through XII grossly intact. PSYCH: Appropriate affect. Alert and oriented to person, place and time. SKIN: Well perfused. Good skin turgor. Multiple superficial areas of skin breakdown extending from 9 to 5:00, slight erythema, silvadene and telfa pads to left breast. covered with medical bra. ASSESSMENT: 1. Left breast cellulitis PLAN: 1. Continue IV antibiotics. ID on consult 2. Continue local wound care 3. Will add incentive spirometry due to low end of normal oxygen saturations. Patient encouraged to increase ambulation as tolerated. Nurse practitioner note has been reviewed by physician. Signing provider agrees with the documented findings, assessment, and plan of care. Objective - Vital Signs Vital signs: Vital Signs Temp 98.3 F 10/19/18 07:00 Pulse 86 10/19/18 07:00 Resp 12 10/19/18 07:00 BP 119/78 10/19/18 07:00 Pulse Ox 92 L 10/19/18 07:00 Intake & Output 10/18/18 10/19/18 10/19/18 18:59 06:59 18:59 Intake Total 360 400 Output Total 800 1800 Balance -440 -1400 Intake: Oral 360 400 Output: Urine 800 1800 Straight 800 Other: Voiding Method Toilet Toilet Toilet # Voids 5 # Bowel Movements 3 - Labs CBC & Chem 7: 10/17/18 15:12 10/17/18 15:12 Labs: Microbiology - Last 24 Hours (Table) 10/17/18 15:27 Blood Culture - Preliminary Blood No Growth after 24 hours 10/17/18 16:13 Gram Stain - Preliminary Breast - Left Wound Culture - Preliminary <Rubens Mantillaony - Last Filed: 10/19/18 18:35> Subjective As above. Continue local wound care. Overall the patient's skin blisters and superficial wounds appear much improved. Patient still complaining of pain however has issues related to chronic pain prior to arrival. If the patient's exam is improved tomorrow would be reasonable to consider discharge. Objective - Vital Signs Vital signs: Vital Signs Temp 97.9 F 10/19/18 14:44 Pulse 90 10/19/18 14:44 Resp 14 10/19/18 16:53 BP 131/85 10/19/18 14:44 Pulse Ox 94 L 10/19/18 14:44 Intake & Output 10/18/18 10/19/18 10/19/18 18:59 06:59 18:59 Intake Total 360 400 296 Output Total 800 1800 Balance -440 -1400 296 Intake: Oral 360 400 296 Output: Urine 800 1800 Straight 800 Other: Voiding Method Toilet Toilet Toilet # Voids 5 13 # Bowel Movements 3 - Labs CBC & Chem 7: 10/17/18 15:12 10/17/18 15:12 Labs: Microbiology - Last 24 Hours (Table) 10/17/18 15:27 Blood Culture - Preliminary Blood No Growth after 48 hours 10/17/18 16:13 Gram Stain - Final Breast - Left Wound Culture - Final Assessment and Plan (1) Cellulitis of left breast Current Visit: Yes Status: Acute Code(s): N61.0 - MASTITIS WITHOUT ABSCESS SNOMED Code(s): 04438655
[2018-10-19] MEDS: FOLIC ACID 1 MG TAB PO SCH (14:59)
[2018-10-19] MEDS: NICOTINE 14MG/24HR PATCH TRANSDERM SCH ×2 (14:59→21:30)
--- NOTE | 2018-10-19 15:33 | PN ---
PROGRESS NOTE DATE OF SERVICE: 10/19/2018 REASON FOR FOLLOWUP: Left breast cellulitis. INTERVAL HISTORY: The patient is afebrile. The patient overall pain to the left breast is slightly decreased in intensity. Swelling has slightly decreased as well. Denies having any chest pain. No shortness of breath, no cough, no abdominal pain, no diarrhea. PHYSICAL EXAMINATION: Blood pressure is 119/78 with a pulse of 83, temperature 98.3, she is 92% on room air. General description is middle-aged female, lying in bed in no distress. Examination of left breast already show overall swelling and redness has decreased. No foul smelling drainage. LABS: No new labs been obtained today. Cultures obtained yesterday have been negative, so far blood culture negative. DIAGNOSTIC IMPRESSION AND PLAN: Patient with left breast surgical wound with secondary cellulitis. No evidence of any deep abscess. Continue local care with Silvadene cream and continue vancomycin while waiting for the culture to finalize. Watch kidney function closely. Continue supportive care. MMODL / IJN: [id number] /
[2018-10-19] MEDS: ONDANSETRON ODT 8 MG TAB.RAPDIS PO PRN (17:41)
[2018-10-19] MEDS: AMITRIPTYLINE HCL 25 MG TAB PO SCH (21:07)
[2018-10-19] MEDS: LORazepam 1 MG TAB PO PRN (21:40)
--- NOTE | 2018-10-19 23:30 | P.PN ---
Subjective Progress Note Date: 10/18/18 Principal diagnosis: Left breast cellulitis Patient is a 48-year-old female with a known history of asthma, fibromyalgia, hypertension and rheumatoid arthritis and history of migraine headaches who recently had left breast biopsy due to abnormal mammogram came to ER with complaints of swelling, pain and irritation over the left breast of having left breast biopsy about a week ago. Patient says that she's been having left breast irritation swelling or redness and pain worsening for the past 4 days. Patient was seen by her primary care physician and was started on Keflex. Patient presented ER with worsening pain. Patient also reports that she had blisters over the area which have recently popped. Patient is currently complaining of severe pain and requesting IV pain medications. 10/18/2018 Patient is still complaining of pain and burning sensation over the left breast. Redness is much improved now. No evidence of fluid collection or abscess and general surgery recommends no surgical intervention at this time. No fever no chills. Patient is still complaining of pain otherwise. Patient is being continued on antibiotics in the form of vancomycin. Wound cultures showed no growth so far current medications reviewed Objective - Vital Signs Vital signs: Vital Signs Temp 98.7 F 10/18/18 16:05 Pulse 86 10/18/18 16:05 Resp 14 10/18/18 16:05 BP 125/79 10/18/18 16:05 Pulse Ox 93 L 10/18/18 16:05 Intake & Output 10/17/18 10/18/18 10/18/18 18:59 06:59 18:59 Intake Total 240 360 Balance 240 360 Weight 69.4 kg Intake: Oral 240 360 Other: Voiding Method Toilet # Voids 5 # Bowel Movements 3 - Exam PHYSICAL EXAMINATION: Patient is lying in the bed comfortably, no acute distress, awake alert and oriented. Anxious. HEENT: Normocephalic. Neck is supple. Pupils reactive. Nostrils clear. Oral cavity is moist. Ears reveal no drainage. Neck reveals no JVD, carotid bruits, or thyromegaly. CHEST EXAMINATION: Trachea is central. Symmetrical expansion. Lung elder clear to auscultation and percussion. Left breast redness and swelling with skin excoriation. Biopsy site showed no drainage or fluctuation. CARDIAC: Normal S1, S2 with no gallops. No murmurs ABDOMEN: Soft. Bowel sounds normal. No organomegaly. No abdominal bruits. Extremities: reveal no edema. No clubbing or cyanosis Neurologically awake, alert, oriented x3 with well-coordinated movements. No focal deficits noted Skin: No rash or skin lesions. Psychiatric: Coperative. Nonsuicidal. Anxious. Musculoskeletal: No joint swelling or deformity. Normal range of motion. - Labs CBC & Chem 7: 10/17/18 15:12 10/17/18 15:12 Labs: Microbiology - Last 24 Hours (Table) 10/17/18 16:13 Gram Stain - Preliminary Breast - Left Wound Culture - Preliminary Assessment and Plan Assessment: Left breast skin excoriation with mild cellulitis. Unlikely abscess. No surgical intervention for surgery.. Recent left breast biopsy due to abnormal mammogram Asthma stable. Fibromyalgia Hypertension Rheumatology disease History of endometriosis History of migraine headache History of benign positional vertigo History of MRSA Anxiety/depression Nicotine addiction DVT prophylaxis with heparin subcu Plan: Patient will be continued on pain management with Dilaudid IV. Continue with antibiotics and cough vancomycin . Zosyn was discontinued. Gen. surgery and ID is following.. Current with home medications and follow up closely. Patient is requesting IV pain medications and Zofran for nausea. Further recommendations based on the clinical course. Time with Patient: Greater than 30
--- NOTE | 2018-10-19 23:33 | P.PN ---
Subjective Progress Note Date: 10/19/18 Principal diagnosis: Left breast cellulitis Patient is a 48-year-old female with a known history of asthma, fibromyalgia, hypertension and rheumatoid arthritis and history of migraine headaches who recently had left breast biopsy due to abnormal mammogram came to ER with complaints of swelling, pain and irritation over the left breast of having left breast biopsy about a week ago. Patient says that she's been having left breast irritation swelling or redness and pain worsening for the past 4 days. Patient was seen by her primary care physician and was started on Keflex. Patient presented ER with worsening pain. Patient also reports that she had blisters over the area which have recently popped. Patient is currently complaining of severe pain and requesting IV pain medications. 10/18/2018 Patient is still complaining of pain and burning sensation over the left breast. Redness is much improved now. No evidence of fluid collection or abscess and general surgery recommends no surgical intervention at this time. No fever no chills. Patient is still complaining of pain otherwise. Patient is being continued on antibiotics in the form of vancomycin. Wound cultures showed no growth so far. 10/19/2018 Patient still coming of pain. Otherwise wound cultures are negative. No surgical intervention as per surgery. Currently on antibiotics in the form of vancomycin. Final ID recommendations. Continued on wound care with Silvadene. No fever no chills. No other acute overnight issues. current medications reviewed Objective - Vital Signs Vital signs: Vital Signs Temp 98.6 F 10/19/18 20:10 Pulse 85 10/19/18 20:10 Resp 18 10/19/18 20:10 BP 133/89 10/19/18 20:10 Pulse Ox 95 10/19/18 20:10 Intake & Output 10/19/18 10/19/18 10/20/18 06:59 18:59 06:59 Intake Total 400 296 Output Total 1800 Balance -1400 296 Intake: Oral 400 296 Output: Urine 1800 Other: Voiding Method Toilet Toilet # Voids 13 - Exam PHYSICAL EXAMINATION: Patient is lying in the bed comfortably, no acute distress, awake alert and oriented. Anxious. HEENT: Normocephalic. Neck is supple. Pupils reactive. Nostrils clear. Oral cavity is moist. Ears reveal no drainage. Neck reveals no JVD, carotid bruits, or thyromegaly. CHEST EXAMINATION: Trachea is central. Symmetrical expansion. Lung elder clear to auscultation and percussion. Left breast redness and swelling with skin excoriation improved. Biopsy site showed no drainage or fluctuation. CARDIAC: Normal S1, S2 with no gallops. No murmurs ABDOMEN: Soft. Bowel sounds normal. No organomegaly. No abdominal bruits. Extremities: reveal no edema. No clubbing or cyanosis Neurologically awake, alert, oriented x3 with well-coordinated movements. No focal deficits noted Skin: No rash or skin lesions. Psychiatric: Coperative. Nonsuicidal. Anxious. Musculoskeletal: No joint swelling or deformity. Normal range of motion. - Labs CBC & Chem 7: 10/17/18 15:12 10/17/18 15:12 Labs: Microbiology - Last 24 Hours (Table) 10/17/18 15:27 Blood Culture - Preliminary Blood No Growth after 48 hours 10/17/18 16:13 Gram Stain - Final Breast - Left Wound Culture - Final Assessment and Plan Assessment: Left breast skin excoriation with mild cellulitis. Unlikely abscess. No surgical intervention for surgery.. Recent left breast biopsy due to abnormal mammogram Asthma stable. Fibromyalgia Hypertension Rheumatology disease History of endometriosis History of migraine headache History of benign positional vertigo History of MRSA Anxiety/depression Nicotine addiction DVT prophylaxis with heparin subcu Plan: Patient will be continued on pain management with Dilaudid IV. Continue with antibiotics and cough vancomycin . Zosyn was discontinued. Gen. surgery and ID is following.. Current with home medications and follow up closely. Patient is requesting IV pain medications and Zofran for nausea. Further recommendations based on the clinical course.
[2018-10-20] MEDS: HYDROmorphone 1 MG/ML 1 ML SYRINGE IVP PRN ×2 (02:30→05:29)
[2018-10-20] MEDS: KETOROLAC 30 MG/ML 1 ML VIAL IVP PRN ×2 (03:38→09:53)
[2018-10-20] MEDS: SODIUM CHLORIDE 0.9% 1,000 ML IV SCH ×2 (04:01→16:07)
[2018-10-20 08:36] LABS: Anion Gap 4 mmol/L; Blood Urea Nitrogen 9 mg/dL (7-17); Calcium 9.5 mg/dL (8.4-10.2); Carbon Dioxide 33 mmol/L (22-30); Chloride 104 mmol/L (98-107); Glucose 99 mg/dL (74-99); Potassium 4.4 mmol/L (3.5-5.1); Sodium 141 mmol/L (137-145)
[2018-10-20 08:37] LABS: Basophils % (A) 0 %; Eosinophils # (A) 0.2 k/uL (0-0.7); Eosinophils % (A) 4 %; HGB 11.8 gm/dL (11.4-16.0); Lymphocytes # (A) 1.3 k/uL (1.0-4.8); Lymphocytes % (A) 33 %; MCHC 33.7 g/dL (31.0-37.0); MCV 92.1 fL (80.0-100.0); Mean Platelet Volume 6.5; Monocytes # (A) 0.2 k/uL (0-1.0); Monocytes % (A) 6 %; Neutrophils # (A) 2.1 k/uL (1.3-7.7); Neutrophils % (A) 55 %; Platelet Count 203 k/uL (150-450); RDW 12.4 % (11.5-15.5); WBC 3.8 k/uL (3.8-10.6)
[2018-10-20] MEDS ORDERED: SILVER sulfADIAZINE Cream 400 GM 1 APPLIC APPLIC TOPICAL SCH (09:00)
[2018-10-20] MEDS: VANCOMYCIN 1,250 MG in SODIUM CHLORIDE 0.9% 250 ML IVPB SCH ×2 (09:53→21:21)
[2018-10-20] MEDS: LORATADINE 10 MG TAB PO SCH (09:55)
[2018-10-20] MEDS: POTASSIUM CHLORIDE ER 20 MEQ TAB.ER PO SCH ×2 (09:55→21:21)
[2018-10-20] MEDS: PANTOPRAZOLE 40 MG TABLET PO SCH (09:56)
[2018-10-20] MEDS: GABAPENTIN 300 MG CAP PO SCH ×4 (09:57→21:05)
[2018-10-20] MEDS: HEPARIN SODIUM,PORCINE 5,000 UNIT/ML 1 ML VIAL SQ SCH ×2 (09:57→16:07)
[2018-10-20] MEDS: HYDROCHLOROTHIAZIDE 25 MG TAB PO SCH (09:57)
[2018-10-20] MEDS: SERTRALINE 100 MG TAB PO SCH (09:57)
[2018-10-20] MEDS: FUROSEMIDE 40 MG TAB PO SCH (09:57)
[2018-10-20] MEDS: METHOCARBAMOL 750 MG TAB PO SCH ×3 (09:58→21:07)
--- NOTE | 2018-10-20 10:47 | P.PN ---
<Darline Rainey A - Last Filed: 10/20/18 10:45> Subjective Progress Note Date: 10/20/18 CHIEF COMPLAINT: Left breast cellulitis HISTORY OF PRESENT ILLNESS: Patient seen and examined at the bedside. Patient reports her pain as tolerable at this time. Currently, left breast with silvadene and telfa pads with medical bra. Patient is completing dressing changes on her own. She remains on IV antibiotics. Infectious disease is following. Blood cultures are negative at 48 hours. Left breast wound culture is negative at 48 hours. PHYSICAL EXAM: VITAL SIGNS: Currently stable. GENERAL: Well-developed in no acute distress. HEENT: No sclera icterus. Extraocular movements grossly intact. Moist buccal mucosa. Head is atraumatic, normocephalic. Hears conversational speech. No nasal drainage. NECK: Supple without lymphadenopathy. CHEST: Non-labored respirations and equal bilateral excursions. CARDIOVASCULAR: Regular rate with regular rhythm. Palpable 2+ radial pulses. ABDOMEN: Soft. Nondistended. Nontender. MUSCULOSKELETAL: No clubbing, cyanosis or edema. NEUROLOGIC: No focal or lateralizing signs. Cranial nerves II through XII grossly intact. PSYCH: Appropriate affect. Alert and oriented to person, place and time. SKIN: Well perfused. Good skin turgor. Multiple superficial areas of skin breakdown extending from 9 to 5:00, with erythema, silvadene and telfa pads to left breast. covered with medical bra. ASSESSMENT: 1. Left breast cellulitis PLAN: 1. Continue IV antibiotics. ID on consult 2. Continue local wound care 3. Patient is anticipating discharge home today. Recommended to patient to avoid IV narcotics today to ensure pain is tolerable with oral medications. Patient agreeable. Nurse practitioner note has been reviewed by physician. Signing provider agrees with the documented findings, assessment, and plan of care. Objective - Vital Signs Vital signs: Vital Signs Temp 97.9 F 10/20/18 07:00 Pulse 85 10/20/18 07:00 Resp 19 10/20/18 07:00 BP 119/82 10/20/18 07:00 Pulse Ox 93 L 10/20/18 07:00 Intake & Output 10/19/18 10/20/18 10/20/18 18:59 06:59 18:59 Intake Total 296 1450 Balance 296 1450 Intake: Oral 296 1450 Other: Voiding Method Toilet Toilet # Voids 13 2 - Labs CBC & Chem 7: 10/20/18 08:05 10/20/18 08:05 Labs: Abnormal Lab Results - Last 24 Hours (Table) 10/20/18 Range/Units 08:05 Carbon Dioxide 33 H (22-30) mmol/L Microbiology - Last 24 Hours (Table) 10/17/18 15:27 Blood Culture - Preliminary Blood No Growth after 48 hours 10/17/18 16:13 Gram Stain - Final Breast - Left Wound Culture - Final <Feliciano Mantilla - Last Filed: 10/20/18 14:36> Subjective As above. Patient doing well. No evidence of abscess. Continue local wound care per infectious disease. We'll sign off. Patient to follow-up after discharge. Objective - Vital Signs Vital signs: Vital Signs Temp 97.9 F 10/20/18 07:00 Pulse 85 10/20/18 07:00 Resp 19 10/20/18 07:00 BP 119/82 10/20/18 07:00 Pulse Ox 93 L 10/20/18 07:00 Intake & Output 10/19/18 10/20/18 10/20/18 18:59 06:59 18:59 Intake Total 296 1450 Balance 296 1450 Intake: Oral 296 1450 Other: Voiding Method Toilet Toilet # Voids 13 2 - Labs CBC & Chem 7: 10/20/18 08:05 10/20/18 08:05 Labs: Abnormal Lab Results - Last 24 Hours (Table) 10/20/18 Range/Units 08:05 Carbon Dioxide 33 H (22-30) mmol/L Microbiology - Last 24 Hours (Table) 10/17/18 15:27 Blood Culture - Preliminary Blood No Growth after 48 hours 10/17/18 16:13 Gram Stain - Final Breast - Left Wound Culture - Final Assessment and Plan (1) Cellulitis of left breast Current Visit: Yes Status: Acute Code(s): N61.0 - MASTITIS WITHOUT ABSCESS SNOMED Code(s): 14496218
[2018-10-20] MEDS: SENNOSIDES 8.6 MG TAB PO PRN (12:09)
[2018-10-20] MEDS: FOLIC ACID 1 MG TAB PO SCH (12:09)
[2018-10-20] MEDS: ceFAZolin IN SWFI 2 GM/20 ML SYRINGE IVP SCH (16:07)
--- NOTE | 2018-10-20 17:43 | P.PN ---
Subjective Progress Note Date: 10/20/18 Interval history: Patient is a 48-year-old female with a known history of asthma, fibromyalgia, hypertension and rheumatoid arthritis and history of migraine headaches who recently had left breast biopsy due to abnormal mammogram came to ER with complaints of swelling, pain and irritation over the left breast of having left breast biopsy about a week ago. Patient says that she's been having left breast irritation swelling or redness and pain worsening for the past 4 days. Patient was seen by her primary care physician and was started on Keflex. Patient presented ER with worsening pain. Patient also reports that she had blisters over the area which have recently popped. Patient is currently complaining of severe pain and requesting IV pain medications. 10/18/2018 Patient is still complaining of pain and burning sensation over the left breast. Redness is much improved now. No evidence of fluid collection or abscess and general surgery recommends no surgical intervention at this time. No fever no chills. Patient is still complaining of pain otherwise. Patient is being continued on antibiotics in the form of vancomycin. Wound cultures showed no growth so far. 10/19/2018 Patient still coming of pain. Otherwise wound cultures are negative. No surgical intervention as per surgery. Currently on antibiotics in the form of vancomycin. Final ID recommendations. Continued on wound care with Silvadene. No fever no chills. No other acute overnight issues. 10/20/2018 maintained on IV antibiotics as per infectious disease. Afebrile, normal WBC. Blood cultures and left breast wound culture negative at 48 hours. Recently medicated for pain, pain controlled. Objective - Vital Signs Vital signs: Vital Signs Temp 97.9 F 10/20/18 07:00 Pulse 85 10/20/18 07:00 Resp 19 10/20/18 07:00 BP 119/82 10/20/18 07:00 Pulse Ox 93 L 10/20/18 07:00 Intake & Output 10/19/18 10/20/18 10/20/18 18:59 06:59 18:59 Intake Total 296 1450 Balance 296 1450 Intake: Oral 296 1450 Other: Voiding Method Toilet Toilet # Voids 13 2 - Exam Patient is lying in the bed, no acute distress, awake alert and oriented. HEENT: Normocephalic. Neck is supple. Pupils reactive.Oral cavity is moist. Neck reveals no JVD, carotid bruits, or thyromegaly. CHEST EXAMINATION: Trachea is central. Symmetrical expansion. Lung elder clear to auscultation and percussion. Left breast redness and swelling with skin excoriation improved. Biopsy site s howed no drainage or fluctuation. CARDIAC: Normal S1, S2 with no gallops. No murmurs ABDOMEN: Soft. Bowel sounds normal. No organomegaly. No abdominal bruits. Extremities: reveal no edema. No clubbing or cyanosis Neurologically awake, alert, oriented x3 with well-coordinated movements. No focal deficits noted Skin: Left breast tender, reddened, swelling with brownish drainage on Telfa pads Musculoskeletal: No joint swelling or deformity. Normal range of motion. - Labs CBC & Chem 7: 10/20/18 08:05 10/20/18 08:05 Labs: Abnormal Lab Results - Last 24 Hours (Table) 10/20/18 Range/Units 08:05 Carbon Dioxide 33 H (22-30) mmol/L Microbiology - Last 24 Hours (Table) 10/17/18 15:27 Blood Culture - Preliminary Blood No Growth after 48 hours 10/17/18 16:13 Gram Stain - Final Breast - Left Wound Culture - Final Assessment and Plan Assessment: Left breast skin excoriation with mild cellulitis. Unlikely abscess. No surgical intervention for surgery. Recent left breast biopsy due to abnormal mammogram Asthma stable. Fibromyalgia Hypertension Rheumatology disease History of endometriosis History of migraine headache History of benign positional vertigo History of MRSA Anxiety/depression Nicotine addiction plan: Continue on current medication regime ,monitoring and symptomatic treatment. .Antibiotics and wound care and further adjusted as per ID. Monitor overnight with discharge planning for tomorrow. increase ambulation in hallway, 3 times a day. IV Dilaudid discontinued, attempting oral pain management only, prior to discharge.DVT prophylaxis with heparin subcu . Smoking cessation readdressed. Further recommendations to follow. The impression and plan of care has been dictated as directed. : I performed a history and examination of this patient, discussed the same with the dictator. I agree with the dictator's note ,documented as a scribe. Any additional findings or plans will be noted.
[2018-10-20] MEDS: DICLOFENAC SODIUM GEL 100 GM TUBE TOPICAL SCH ×2 (18:22→21:08)
[2018-10-20] MEDS: LORazepam 1 MG TAB PO PRN (21:07)
[2018-10-20] MEDS: AMITRIPTYLINE HCL 25 MG TAB PO SCH (21:19)
[2018-10-20] MEDS: ONDANSETRON ODT 4 MG TAB PO PRN (21:33)
[2018-10-20] MEDS: NICOTINE 14MG/24HR PATCH TRANSDERM SCH (22:08)
--- NOTE | 2018-10-20 23:40 | PN ---
PROGRESS NOTE DATE OF SERVICE: 10/20/2018. REASON FOR FOLLOWUP: Left breast wound cellulitis. INTERVAL HISTORY: The patient is afebrile. The patient is breathing comfortably. Still having pain to the left breast but decreased and redness has resolved. No chest pain. No abdominal pain. No diarrhea. PHYSICAL EXAMINATION: Blood pressure 134/88 with a pulse of 83, temperature 98.2. She is 96% on room air. General description is a middle-aged female lying in bed in no distress. HEENT examination: No pallor or scleral icterus. examination of the did shows the having most slough around the medial site with the redness has resolved. ABDOMEN: Soft. No tenderness. Extremities: No edema of the feet. LABS: Hemoglobin is 11.1, white count 3.8, with a BUN of 9, creatinine 0.65. The left breast wound culture so far negative. Blood culture negative. DIAGNOSTIC IMPRESSION AND PLAN: Patient with left breast wound with secondary cellulitis. So far culture has been negative for any resistant pathogen hence we will discontinue the Vancomycin and start the patient on Cefazolin 2 gm every eight hours. We will discontinue Silvadene cream and utilize Medihoney to the lateral wound with slough tissue to the medial wound. Re-evaluate the patient tomorrow. Continue supportive care. MMODL / IJN: [id number] /
[2018-10-21] MEDS: HEPARIN SODIUM,PORCINE 5,000 UNIT/ML 1 ML VIAL SQ SCH ×3 (00:10→18:22)
[2018-10-21] MEDS: ceFAZolin IN SWFI 2 GM/20 ML SYRINGE IVP SCH ×3 (00:10→18:36)
[2018-10-21] MEDS: oxyCODONE-APAP 10-325MG 1 EACH TAB PO PRN ×3 (00:10→13:42)
[2018-10-21] MEDS: SENNOSIDES 8.6 MG TAB PO PRN ×2 (00:20→13:43)
[2018-10-21] MEDS: amLODIPine 5 MG TAB PO SCH ×2 (09:39→11:39)
[2018-10-21] MEDS: POTASSIUM CHLORIDE ER 20 MEQ TAB.ER PO SCH ×2 (09:39→22:27)
[2018-10-21] MEDS: GABAPENTIN 300 MG CAP PO SCH ×4 (09:39→22:28)
[2018-10-21] MEDS: PANTOPRAZOLE 40 MG TABLET PO SCH (09:39)
[2018-10-21] MEDS: LORATADINE 10 MG TAB PO SCH (09:39)
[2018-10-21] MEDS: DICLOFENAC SODIUM GEL 100 GM TUBE TOPICAL SCH ×4 (09:40→22:28)
[2018-10-21] MEDS: SERTRALINE 100 MG TAB PO SCH (09:40)
[2018-10-21] MEDS: METHOCARBAMOL 750 MG TAB PO SCH ×3 (09:40→22:28)
[2018-10-21] MEDS: VANCOMYCIN 1,250 MG in SODIUM CHLORIDE 0.9% 250 ML IVPB SCH (09:44)
[2018-10-21] MEDS: LORazepam 1 MG TAB PO PRN (10:16)
[2018-10-21] MEDS: FOLIC ACID 1 MG TAB PO SCH (13:39)
[2018-10-21 15:44] VITALS: RESP 16
--- NOTE | 2018-10-21 17:20 | PN ---
PROGRESS NOTE DATE OF SERVICE: 10/21/2018 REASON FOR FOLLOWUP: 1. Left breast wound and cellulitis. 2. Possible UTI. INTERVAL HISTORY: The patient is currently afebrile. The patient's left breast pain, swelling and redness has improved. Denies having any chest pain. No shortness of breath, cough, no abdominal pain. She has been complaining of more urinary burning, frequency and suprapubic pain and is blaming on the self-catheterization that was done on her yesterday. PHYSICAL EXAMINATION: Blood pressure 120/83 with a pulse of 87, temperature 97.8. She is 97% on room air. General description is a middle-aged female, lying in bed in no distress. RESPIRATORY SYSTEM: Unlabored breathing, clear to auscultation anteriorly. HEART: S1, S2. Regular rate and rhythm. ABDOMEN: Soft, no tenderness. On examination of left breast in the presence of the RN, it shows minimal slough tissue on the lateral side. The anterior breast wound has almost healed up and the cellulitis has resolved. LABS: Hemoglobin is 11.8, white count if 3.8. The wound culture has been negative. Blood culture negative. DIAGNOSTIC IMPRESSION AND PLAN: Patient with left breast wound with secondary cellulitis. PLAN: 1. At this time to keep the patient on Cefazolin with initial therapy with oral Keflex. Local wound care to the lateral breast wound with slough with Thera honey to be changed daily and the anterior breast wound with no slough tissue, local wound care with Aquacel Silver dressing which to be changed every 48-72 hours. 2. Patient was urinary symptoms of burning and suprapubic pain, a stat UA has been ordered. Will determine need for any further antibiotic therapy on the basis of those results. Care were discussed with the RN as well as her admitting physician. MMODL / IJN: [id number] /
[2018-10-21 18:19] LABS: Appearance,Urine Clear (Clear); Bilirubin,Urine Negative (Negative); Blood,Urine Negative (Negative); Color,Urine Light Yellow; Glucose,Urine (UA) Negative (Negative); Ketones,Urine Negative (Negative); Leukocyte Esterase,Urine Negative (Negative); Nitrite,Urine Negative (Negative); PH, Urine 6.5 (5.0-8.0); Protein,Urine Negative (Negative); Specific Gravity,Urine 1.003 (1.001-1.035); Urobilinogen,Urine <2.0 mg/dL (<2.0)
[2018-10-21] MEDS ORDERED: VANCOMYCIN TROUGH DUE 1 EACH MISC MISCELLANE ONE (20:00)
--- NOTE | 2018-10-21 22:00 | P.PN ---
Subjective Progress Note Date: 10/21/18 Principal diagnosis: Left breast cellulitis Patient is a 48-year-old female with a known history of asthma, fibromyalgia, hypertension and rheumatoid arthritis and history of migraine headaches who recently had left breast biopsy due to abnormal mammogram came to ER with complaints of swelling, pain and irritation over the left breast of having left breast biopsy about a week ago. Patient says that she's been having left breast irritation swelling or redness and pain worsening for the past 4 days. Patient was seen by her primary care physician and was started on Keflex. Patient presented ER with worsening pain. Patient also reports that she had blisters over the area which have recently popped. Patient is currently complaining of severe pain and requesting IV pain medications. 10/18/2018 Patient is still complaining of pain and burning sensation over the left breast. Redness is much improved now. No evidence of fluid collection or abscess and general surgery recommends no surgical intervention at this time. No fever no chills. Patient is still complaining of pain otherwise. Patient is being continued on antibiotics in the form of vancomycin. Wound cultures showed no growth so far. 10/19/2018 Patient still coming of pain. Otherwise wound cultures are negative. No surgical intervention as per surgery. Currently on antibiotics in the form of vancomycin. Final ID recommendations. Continued on wound care with Silvadene. No fever no chills. No other acute overnight issues. 10/21/2018 Patient is complaining of bleeding in the left breast dressing. Also complaining of lower abdominal pain and patient thinks she is having urinary tract infection. Otherwise left breast redness is almost resolved. Pain improved as well. No fever no chills. Patient is being continued on IV Keflex. Repeat UA was ordered. Possible discharge early tomorrow with moderate improvement. Continue with current management and pain medications. Wound cultures negative. current medications reviewed Objective - Vital Signs Vital signs: Vital Signs Temp 98.4 F 10/21/18 18:49 Pulse 99 10/21/18 18:49 Resp 16 10/21/18 18:49 BP 118/73 10/21/18 18:49 Pulse Ox 95 10/21/18 18:49 Intake & Output 10/21/18 10/21/18 10/22/18 06:59 18:59 06:59 Intake Total 590 666 Balance 590 666 Intake: Oral 590 666 Other: Voiding Method Toilet # Voids 1 - Exam PHYSICAL EXAMINATION: Patient is lying in the bed comfortably, no acute distress, awake alert and oriented. Anxious. HEENT: Normocephalic. Neck is supple. Pupils reactive. Nostrils clear. Oral cavity is moist. Ears reveal no drainage. Neck reveals no JVD, carotid bruits, or thyromegaly. CHEST EXAMINATION: Trachea is central. Symmetrical expansion. Lung elder clear to auscultation and percussion. Left breast redness and swelling with skin excoriation improved. Biopsy site showed no drainage or fluctuation. CARDIAC: Normal S1, S2 with no gallops. No murmurs ABDOMEN: Soft. Bowel sounds normal. No organomegaly. No abdominal bruits. Extremities: reveal no edema. No clubbing or cyanosis Neurologically awake, alert, oriented x3 with well-coordinated movements. No focal deficits noted Skin: No rash or skin lesions. Psychiatric: Coperative. Nonsuicidal. Anxious. Musculoskeletal: No joint swelling or deformity. Normal range of motion. - Labs CBC & Chem 7: 10/20/18 08:05 10/20/18 08:05 Labs: Microbiology - Last 24 Hours (Table) 10/17/18 15:27 Blood Culture - Preliminary Blood No Growth after 96 hours Assessment and Plan Assessment: Left breast skin excoriation with mild cellulitis. No redness of abscess. Improving clinically.. No surgical intervention for surgery.. Recent left breast biopsy due to abnormal mammogram Asthma stable. Fibromyalgia Hypertension Rheumatology disease History of endometriosis History of migraine headache History of benign positional vertigo History of MRSA Anxiety/depression Nicotine addiction DVT prophylaxis with heparin subcu Plan: Patient will be continued on pain management with Dilaudid IV. Continue with antibiotics in the form of Keflex. Vancomycin and Zosyn have been discontinued.. Gen. surgery and ID is following.. Current with home medications and follow up closely. We will avoid IV narcotic pain medications. Wound cultures showed no growth. Patient is requesting IV pain medications and Zofran for nausea. Further recommendations based on the clinical course. Time with Patient: Greater than 30
[2018-10-21] MEDS: NICOTINE 14MG/24HR PATCH TRANSDERM SCH (22:27)
[2018-10-21] MEDS: AMITRIPTYLINE HCL 25 MG TAB PO SCH (22:27)
[2018-10-21] MEDS: ONDANSETRON ODT 4 MG TAB PO PRN (22:43)
[2018-10-22] MEDS: ceFAZolin IN SWFI 2 GM/20 ML SYRINGE IVP SCH ×2 (00:04→09:37)
[2018-10-22] MEDS: HEPARIN SODIUM,PORCINE 5,000 UNIT/ML 1 ML VIAL SQ SCH ×2 (00:04→09:28)
[2018-10-22] MEDS: LORazepam 1 MG TAB PO PRN (02:06)
[2018-10-22] MEDS ORDERED: ERGOCALCIFEROL 50,000 UNIT CAP PO SCH (09:00)
[2018-10-22 09:16] VITALS: BP 120/84; PULSE 98; TEMP 98.3
[2018-10-22] MEDS: PANTOPRAZOLE 40 MG TABLET PO SCH (09:25)
[2018-10-22] MEDS: LORATADINE 10 MG TAB PO SCH (09:25)
[2018-10-22] MEDS: GABAPENTIN 300 MG CAP PO SCH ×2 (09:26→13:56)
[2018-10-22] MEDS: METHOCARBAMOL 750 MG TAB PO SCH (09:26)
[2018-10-22] MEDS: oxyCODONE-APAP 10-325MG 1 EACH TAB PO PRN (09:26)
[2018-10-22] MEDS: SERTRALINE 100 MG TAB PO SCH (09:26)
[2018-10-22] MEDS: DICLOFENAC SODIUM GEL 100 GM TUBE TOPICAL SCH (09:27)
[2018-10-22] MEDS: ONDANSETRON ODT 4 MG TAB PO PRN (09:37)
[2018-10-22] MEDS: POTASSIUM CHLORIDE ER 20 MEQ TAB.ER PO SCH (09:37)
[2018-10-22] MEDS ORDERED: SUMAtriptan SUCCINATE 50 MG TAB PO STA (09:46)
[2018-10-22] MEDS: FOLIC ACID 1 MG TAB PO SCH (11:42)
[2018-10-22] MEDS: amLODIPine 5 MG TAB PO SCH (11:44)
== END 2018-10-22 14:18 | disposition home health service (06) | DRG 601 ==
LOC: EC 12:38 → 4SSUR 17:07
PROVIDERS: ADMIT Internal Medicine; ATTEND Internal Medicine
DX: N61.0 Mastitis without abscess (principal); G43.909 Migraine, unspecified, not intractable, without status migrainosus; F32.9 Major depressive disorder, single episode, unspecified; F41.9 Anxiety disorder, unspecified; M79.7 Fibromyalgia; M06.9 Rheumatoid arthritis, unspecified; I10 Essential (primary) hypertension; J45.909 Unspecified asthma, uncomplicated; N80.9 Endometriosis, unspecified; G89.4 Chronic pain syndrome; H81.10 Benign paroxysmal vertigo, unspecified ear; R92.8 Other abnormal and inconclusive findings on diagnostic imaging of breast; F17.210 Nicotine dependence, cigarettes, uncomplicated; Z71.6 Tobacco abuse counseling; Z79.899 Other long term (current) drug therapy; Z86.14 Personal history of Methicillin resistant Staphylococcus aureus infection; Z98.891 History of uterine scar from previous surgery; Z90.710 Acquired absence of both cervix and uterus; Z98.51 Tubal ligation status; Z91.041 Radiographic dye allergy status; Z91.040 Latex allergy status; Z88.5 Allergy status to narcotic agent; Z88.2 Allergy status to sulfonamides; Z88.8 Allergy status to other drugs, medicaments and biological substances; Z91.018 Allergy to other foods; Z91.048 Other nonmedicinal substance allergy status; Z82.49 Family history of ischemic heart disease and other diseases of the circulatory system; Z83.3 Family history of diabetes mellitus; Z82.3 Family history of stroke; Z82.61 Family history of arthritis; Z81.8 Family history of other mental and behavioral disorders
CPT/HCPCS: 36415; 80048; 80053; 80202; 81001; 81003; 83605; 85025; 87040; 87070; 87205; 96361; 96365; 96368; 96375; 99284

== ENCOUNTER → 2020-04-28 | Outpatient (CLI) | payer MEDICARE, BC ==
--- NOTE | 2020-04-29 08:54 | MM ---
Reason for exam: additional evaluation requested from prior study. Last mammogram was performed 1 year and 6 months ago. History: Patient is postmenopausal. Family history of breast cancer in 2 maternal aunts at age 40. Benign US biopsy breast VAD LT of the left breast, October 11, 2018. Benign US breast needle core LT of the left breast, December 29, 2016. Took hormonal contraceptives for 10 years. Took estrogen for 2 years. Physical Findings: Nurse did not find any significant physical abnormalities on exam. MG 3D Diag Mammo W/Cad PABLO Bilateral CC and MLO view(s) were taken. Prior study comparison: October 11, 2018, left breast MG diagnostic mammo LT wo CAD. September 26, 2018, bilateral MG 3d diag mammo w/cad PABLO. October 01, 2013, CAD bilateral diagnostic mammogram. The breast tissue is heterogeneously dense. This may lower the sensitivity of mammography. Previous mammotome biopsy in the left breast x 2. Ovoid nodularity 1.4cm 10 o'clock left breast likely present back in 2013. 8 o'clock posterior right breast nodularity more defined. These results were verbally communicated with the patient and result sheet given to the patient on 04/28/20. ASSESSMENT: Incomplete: need additional imaging evaluation, BI-RAD 0 RECOMMENDATION: Ultrasound of both breasts.
--- NOTE | 2020-04-29 08:56 | USB ---
Reason for exam: additional evaluation requested from abnormal screening. History: Patient is postmenopausal. Family history of breast cancer in 2 maternal aunts at age 40. Benign US biopsy breast VAD LT of the left breast, October 11, 2018. Benign US breast needle core LT of the left breast, December 29, 2016. Took hormonal contraceptives for 10 years. Took estrogen for 2 years. US Breast BILAT Right complete breast ultrasound includes all four quadrants, the retroareolar region and axilla. Finding demonstrates a 0.7 x 0.5 x 0.4cm cystic lesion at 8 o'clock, likely corresponds to the mammographic nodule. Left complete breast ultrasound includes all four quadrants, the retroareolar region and axilla. Finding demonstrates a 0.4 x 0.5 x 0.4cm benign, cystic lesion at 10 o'clock. These results were verbally communicated with the patient and result sheet given to the patient on 04/28/20. ASSESSMENT: Probably benign, BI-RAD 3 RECOMMENDATION: Follow-up diagnostic mammogram of both breasts in 6 months.
== END | disposition home or self-care (01) ==
LOC: RADMAMWWP 14:14
PROVIDERS: ATTEND Family Medicine
DX: N60.12 Diffuse cystic mastopathy of left breast (principal); N60.11 Diffuse cystic mastopathy of right breast
CPT/HCPCS: 77066; 76641; G0279; 77062

== ENCOUNTER → 2021-03-19 | Outpatient (CLI) | payer MEDICARE, BC ==
--- NOTE | 2021-03-20 11:32 | MM ---
Reason for exam: additional evaluation requested from prior study. Last mammogram was performed 11 months ago. History: Patient is postmenopausal. Family history of breast cancer in 2 maternal aunts at age 40. Benign US biopsy breast VAD LT of the left breast, October 11, 2018. Benign US breast needle core LT of the left breast, December 29, 2016. Took hormonal contraceptives for 10 years. Took estrogen for 2 years. Physical Findings: Nurse did not find any significant physical abnormalities on exam. MG 3D Diag Mammo W/Cad PABLO Bilateral CC and MLO view(s) were taken. Prior study comparison: April 28, 2020, bilateral MG 3d diag mammo w/cad PABLO. October 11, 2018, left breast MG diagnostic mammo LT wo CAD. The breast tissue is heterogeneously dense. This may lower the sensitivity of mammography. Previous mammotome biopsy in the left breast x 2. There is chronic nodularity in the right breast. The previous medial focal asymmetry does not persist. Benign oil cyst calcifications on both sides. These results were verbally communicated with the patient and result sheet given to the patient on 03/19/21. ASSESSMENT: Incomplete: need additional imaging evaluation, BI-RAD 0 RECOMMENDATION: Ultrasound of both breasts. (as recommended previously)
--- NOTE | 2021-03-20 11:35 | USB ---
Reason for exam: additional evaluation requested from abnormal screening. History: Patient is postmenopausal. Family history of breast cancer in 2 maternal aunts at age 40. Benign US biopsy breast VAD LT of the left breast, October 11, 2018. Benign US breast needle core LT of the left breast, December 29, 2016. Took hormonal contraceptives for 10 years. Took estrogen for 2 years. US Breast BILAT Technologist: Denia Cunningham Right complete breast ultrasound includes all four quadrants, the retroareolar region and axilla. Finding demonstrates a 0.4 x 0.3 x 0.2cm lesion too small to characterize at 9 o'clock, a 0.7 x 0.5 x 0.5cm mixed lesion at 9 o'clock, stable for a year, benign, a 0.3 x 0.3 x 0.2cm cystic lesion at 10 o'clock and a 0.7 x 0.6 x 0.4cm cystic lesion at 11 o'clock, debris filled cyst. Left complete breast ultrasound includes all four quadrants, the retroareolar region and axilla. Finding demonstrates a 0.7 x 0.6 x 0.2cm cyst cluster at 3 o'clock and a 0.5 x 0.4 x 0.3cm cystic lesion at 11 o'clock. These results were verbally communicated with the patient and result sheet given to the patient on 03/19/21. ASSESSMENT: Benign, BI-RAD 2 RECOMMENDATION: Routine screening mammogram of both breasts in 1 year.
== END | disposition home or self-care (01) ==
LOC: RADMAMWWP 13:52
PROVIDERS: ATTEND Family Medicine
DX: N60.01 Solitary cyst of right breast (principal); N60.02 Solitary cyst of left breast; R92.1 Mammographic calcification found on diagnostic imaging of breast; Z78.0 Asymptomatic menopausal state; Z80.3 Family history of malignant neoplasm of breast; Z79.3 Long term (current) use of hormonal contraceptives
CPT/HCPCS: 77066; 76641; G0279; 77062

== ENCOUNTER 2022-07-29 12:42 | Emergency (ER) | payer MEDICARE, BC ==
[2022-07-29 13:13] VITALS: RESP 18
[2022-07-29] MEDS ORDERED: SODIUM CHLORIDE 0.9% 1,000 ML IV STA (14:10)
[2022-07-29] MEDS ORDERED: KETOROLAC 15 MG/ML 1 ML VIAL IVP STA (14:10)
[2022-07-29] MEDS ORDERED: ONDANSETRON 4 MG/2 ML VIAL IVP STA (14:10)
[2022-07-29 14:20] LABS: Basophils % (A) 1 %; Eosinophils % (A) 1 %; HCT 44.6 % (34.0-46.0); HGB 15.3 gm/dL (11.4-16.0); Lymphocytes # (A) 1.6 k/uL (1.0-4.8); Lymphocytes % (A) 35 %; MCH 31.4 pg (25.0-35.0); MCHC 34.3 g/dL (31.0-37.0); MCV 91.5 fL (80.0-100.0); Mean Platelet Volume 9.1; Monocytes # (A) 0.2 k/uL (0-1.0); Monocytes % (A) 4 %; Neutrophils # (A) 2.6 k/uL (1.3-7.7); Neutrophils % (A) 59 %; Platelet Count 224 k/uL (150-450); RBC 4.88 m/uL (3.80-5.40); RDW 12.9 % (11.5-15.5); WBC 4.4 k/uL (3.8-10.6)
--- NOTE | 2022-07-29 15:19 | US ---
EXAMINATION TYPE: US gallbladder DATE OF EXAM: 07/29/2022 COMPARISON: NONE CLINICAL HISTORY: RUQ pain. RUQ pain TECHNIQUE: Multiple sonographic images of the right upper quadrant are obtained. FINDINGS: EXAM MEASUREMENTS: Liver Length: 12.8 cm Gallbladder Wall: .3 cm CBD: .7 cm Right Kidney: 9.8 x 3.4 x 5.1 cm CERAMICS INSTRUCTOR NOTES: Pancreas: Echogenic tail obscured by bowel gas. Liver: wnl Gallbladder: No stones seen Evidence for sonographic Patel's sign: No CBD: Dilated. Right Kidney: No hydronephrosis or masses seen IMPRESSION: Common bile duct dilated to 7 mm. Distal CBD stone or sludge not excluded correlate clinically.
[2022-07-29] MEDS ORDERED: HYDROmorphone 0.5 MG/0.5 ML SYRINGE IVP STA ×3 (15:34→19:01)
[2022-07-29] MEDS ORDERED: METOCLOPRAMIDE 5 MG/ML 2 ML VIAL IVP STA ×3 (15:34→19:01)
[2022-07-29 15:44] LABS: Appearance,Urine Clear (Clear); Bilirubin,Urine Negative (Negative); Blood,Urine Negative (Negative); Color,Urine Colorless; Glucose,Urine (UA) Negative (Negative); Ketones,Urine Negative (Negative); Leukocyte Esterase,Urine Negative (Negative); Nitrite,Urine Negative (Negative); Protein,Urine Negative (Negative); Specific Gravity,Urine 1.004 (1.001-1.035); Urobilinogen,Urine <2.0 mg/dL (<2.0)
[2022-07-29] MEDS ORDERED: HYDROmorphone 1 MG/ML 1 ML SYRINGE IVP STA (17:12)
--- NOTE | 2022-07-29 17:54 | ED ---
Abdominal Pain HPI - General Chief Complaint: Abdominal Pain Stated Complaint: ABD Pain, Sent by PCP Time Seen by Provider: 07/29/22 13:55 Source: patient, RN notes reviewed Mode of arrival: ambulatory Limitations: no limitations - History of Present Illness Initial Comments: This is a 52-year-old female who presents to the emergency department for right upper quadrant pain. States that this has been present and worsening over the last 5 days. The pain radiates to the epigastric region and to her right shoulder. Also reports associated nausea, vomiting, and diarrhea. The pain is there throughout the day, however it is worse after eating. She has tried [id number] ibuprofen and Tylenol with no relief, she also subsequently throws this back up. She has also tried lidocaine patches and heat again with no relief. Denies any history of similar symptoms in the past. Denies any fevers, chills, sore throat, cough, dyspnea, chest pain, palpitations, back pain, or headaches. MD Complaint: abdominal pain Onset/Timin -: days(s) Location: RUQ Radiation: epigastric Associated Symptoms: nausea, vomiting, diarrhea - Related Data Home Medications Medication Instructions Recorded Confirmed Gabapentin [Neurontin] 600 mg PO QID 12/21/13 10/17/18 Sennosides [Senna] 17.2 mg PO HS PRN 09/28/16 10/17/18 Cetirizine HCl 10 mg PO DAILY 12/14/16 10/17/18 Folic Acid 1 mg PO DAILY 12/15/16 10/17/18 Albuterol Nebulized [Ventolin 2.5 mg INHALATION RT-TID 09/27/17 10/17/18 Nebulized] EPINEPHrine [Epipen 2-Chance] 0.3 mg IM ONCE PRN 09/27/17 10/17/18 Ondansetron Odt [Zofran ODT] 8 mg PO Q8H PRN 09/27/17 10/17/18 Potassium Chloride [Klor-Con 20] 60 meq PO TID 09/27/17 10/17/18 Sertraline HCl [Zoloft] 100 mg PO DAILY 09/27/17 10/17/18 Amitriptyline HCl [Elavil] 75 mg PO HS 10/17/18 10/17/18 Ergocalciferol (Vitamin D2) 50,000 unit PO ANDERSON 10/17/18 10/17/18 [Vitamin D2] LORazepam [Ativan] 2 mg PO BID PRN 10/17/18 10/17/18 Pantoprazole Sodium 40 mg PO DAILY 10/17/18 10/17/18 methocarbamoL [Robaxin-750] 750 mg PO TID 10/17/18 10/17/18 oxyCODONE HCL [oxyCODONE HCL (IR)] 20 mg PO BID PRN 10/17/18 10/17/18 oxyCODONE-APAP 10-325MG [Percocet 1 tab PO DAILY PRN 10/17/18 10/17/18 10-325 mg] Previous Rx's Medication Instructions Recorded Cephalexin [Keflex] 500 mg PO Q12HR 7 Days #14 cap 10/22/18 hydroCHLOROthiazide [Hydrodiuril] 25 mg PO DAILY #30 tab 10/22/18 Allergies Allergy/AdvReac Type Severity Reaction Status Date / Time latex Allergy Severe Unknown Verified 07/29/22 13:13 adhesive Allergy Rash/Hives Verified 07/29/22 13:13 diphenhydramine Allergy Unknown Verified 07/29/22 13:13 [From Benadryl] enbucrilate Allergy Rash/Hives Verified 07/29/22 13:13 etanercept [From Enbrel] Allergy Unknown Verified 07/29/22 13:13 hydrocortisone [From Cortef] Allergy Unknown Verified 07/29/22 13:13 meclizine [From Antivert] Allergy Anaphylaxis Verified 07/29/22 13:13 simvastatin [From Zocor] Allergy Unknown Verified 07/29/22 13:13 Sulfa (Sulfonamide Allergy Unknown Verified 07/29/22 13:13 Antibiotics) Iodinated Contrast Media AdvReac Anaphylaxis Verified 07/29/22 13:13 [Iodinated Contrast Media - Oral and] Review of Systems ROS Statement: Those systems with pertinent positive or pertinent negative responses have been documented in the HPI. ROS Other: All systems not noted in ROS Statement are negative. Past Medical History Past Medical History: Asthma, Fibromyalgia, Hypertension, Rheumatoid Arthritis (RA) Additional Past Medical History / Comment(s): stress test,endometriosis, migraine, carpel tunnel, lupus, ovarian cysts, per pt said poss seizure or stroke 2 yrs ago but not confirmed, interstitial cystitis,chronic pain syndrome sees at pain clinic,past fall/concussion/whiplash, " benign postual vertigo,"did'nt past saccade test or optokinetic test needs to f/u neurologist". w/testing had iv dye/fluid went into rt thumb,told if swelling does'nt go down to see at [facility]" BOARDERLINE DM NO MEDS AND NOT CHECK BS History of Any Multi-Drug Resistant Organisms: MRSA Date of last positivie culture/infection: 2011 MDRO Source:: back Past Surgical History: Appendectomy, Breast Surgery, Section, Heart Catheterization, Hysterectomy, Tubal Ligation Additional Past Surgical History / Comment(s): c- section x 2, throat surgery, jimena renal stents with removal, ovarian cyst removal, heart cath-rt radial used Past Anesthesia/Blood Transfusion Reactions: No Reported Reaction Past Psychological History: Anxiety, Depression Smoking Status: Vaper Past Alcohol Use History: Occasional Past Drug Use History: Marijuana - Past Family History Father Family Medical History: CVA/TIA, Diabetes Mellitus, Myocardial Infarction (PA) Mother Family Medical History: CVA/TIA, Rheumatoid Arthritis (RA) Additional Family Medical History / Comment(s): Schizo, heart problems General Exam Limitations: no limitations General appearance: alert, in distress Head exam: Present: atraumatic, normocephalic, normal inspection Respiratory exam: Present: normal lung sounds bilaterally. Absent: respiratory distress, wheezes, rales, rhonchi, stridor Cardiovascular Exam: Present: regular rate, normal rhythm, normal heart sounds. Absent: systolic murmur, diastolic murmur, rubs, gallop, clicks GI/Abdominal exam: Present: soft, tenderness (Right upper quadrant, positive Patel sign), normal bowel sounds. Absent: distended Neurological exam: Present: alert, oriented X3, CN II-XII intact Psychiatric exam: Present: normal affect, normal mood Skin exam: Present: warm, dry, intact, normal color. Absent: rash Course Vital Signs 07/29/22 07/29/22 13:09 18:03 Temperature 98.3 F 98.6 F Pulse Rate 107 H 86 Respiratory 18 18 Rate Blood Pressure 121/81 101/63 O2 Sat by Pulse 98 95 Oximetry Medical Decision Making - Medical Decision Making This is a 52-year-old female who presents to the emergency department for ab dominal pain. Ultrasound of the gallbladder obtained revealing a dilated common bile duct of 7 mm with possible CBD stone or sludge. When trying to obtain lab work, the sample continued to hemolyze. Her CBC reveals no evidence of leukocytosis, however despite multiple attempts, we were unable to get the CMP to evaluate liver enzymes and amylase/lipase before transferring the patient. Patient will be transferred to [facility] for possible choledocholithiasis due to the lack of GI coverage here. Dr. Harrell at [facility] is the accepting ED provider. We will try again to get the CMP and amylase/lipase before the patient is transferred, we will send these results over if we are able to obtain them. This case was discussed in detail with the attending ED physician. Presentation, findings, and treatment plan discussed in detail as well. - Lab Data Result diagrams: 07/29/22 14:11 07/29/22 17:42 Lab Results 07/29/22 07/29/22 07/29/22 Range/Units 14:11 15:29 17:42 WBC 4.4 (3.8-10.6) k/uL RBC 4.88 (3.80-5.40) m/uL Hgb 15.3 (11.4-16.0) gm/dL Hct 44.6 (34.0-46.0) % MCV 91.5 (80.0-100.0) fL MCH 31.4 (25.0-35.0) pg MCHC 34.3 (31.0-37.0) g/dL RDW 12.9 (11.5-15.5) % Plt Count 224 (150-450) k/uL MPV 9.1 Neutrophils % 59 % Lymphocytes % 35 % Monocytes % 4 % Eosinophils % 1 % Basophils % 1 % Neutrophils # 2.6 (1.3-7.7) k/uL Lymphocytes # 1.6 (1.0-4.8) k/uL Monocytes # 0.2 (0-1.0) k/uL Eosinophils # 0.0 (0-0.7) k/uL Basophils # 0.0 (0-0.2) k/uL Sodium 142 (137-145) mmol/L Potassium 4.6 (3.5-5.1) mmol/L Chloride 106 (98-107) mmol/L Carbon Dioxide 27 (22-30) mmol/L Anion Gap 9 mmol/L BUN 6 L (7-17) mg/dL Creatinine 0.68 (0.52-1.04) mg/dL Est GFR (CKD-EPI)AfAm >90 (>60 ml/min/1.73 sqM) Est GFR (CKD-EPI)NonAf >90 (>60 ml/min/1.73 sqM) Glucose 92 (74-99) mg/dL Calcium 9.3 (8.4-10.2) mg/dL Total Bilirubin 1.1 (0.2-1.3) mg/dL AST 28 (14-36) U/L ALT 18 (4-34) U/L Alkaline Phosphatase 46 (38-126) U/L Total Protein 8.3 H (6.3-8.2) g/dL Albumin 5.2 H (3.5-5.0) g/dL Urine Color Colorless Urine Appearance Clear (Clear) Urine pH 7.0 (5.0-8.0) Ur Specific [place] 1.004 (1.001-1.035) Urine Protein Negative (Negative) Urine Glucose (UA) Negative (Negative) Urine Ketones Negative (Negative) Urine Blood Negative (Negative) Urine Nitrite Negative (Negative) Urine Bilirubin Negative (Negative) Urine Urobilinogen <2.0 (<2.0) mg/dL Ur Leukocyte Esterase Negative (Negative) - Radiology Data Radiology results: report reviewed, image reviewed Disposition Clinical Impression: Choledocholithiasis Disposition: OTHER INSTITUTION NOT DEFINED Referrals: Alicia Wing III, MD [Primary Care Provider] - 1-2 days - Out of Hospital Transfer - Req. Specs Out of Hospital Transfer - Requested Specifics: Other Emergency Center ([facility])
[2022-07-29 17:57] LABS: ALT 18 U/L (4-34); AST 28 U/L (14-36); African American GFR (CKD) >90 (>60 ml/min/1.73 sqM); Albumin 5.2 g/dL (3.5-5.0); Alkaline Phosphatase 46 U/L (38-126); Anion Gap 9 mmol/L; Blood Urea Nitrogen 6 mg/dL (7-17); Calcium 9.3 mg/dL (8.4-10.2); Carbon Dioxide 27 mmol/L (22-30); Chloride 106 mmol/L (98-107); Glucose 92 mg/dL (74-99); Non-African American GFR(CKD) >90 (>60 ml/min/1.73 sqM); Sodium 142 mmol/L (137-145); Total Bilirubin 1.1 mg/dL (0.2-1.3); Total Protein 8.3 g/dL (6.3-8.2)
[2022-07-29 18:01] LABS: Potassium 4.6 mmol/L (3.5-5.1)
[2022-07-29 18:03] VITALS: BP 101/63; PULSE 86; TEMP 98.6
== END 2022-07-29 19:12 | disposition other institution (70) ==
LOC: EC 12:42
DX: K80.50 Calculus of bile duct without cholangitis or cholecystitis without obstruction (principal); I10 Essential (primary) hypertension; F12.90 Cannabis use, unspecified, uncomplicated; J45.909 Unspecified asthma, uncomplicated; F32.A Depression, unspecified; F17.290 Nicotine dependence, other tobacco product, uncomplicated; Z90.49 Acquired absence of other specified parts of digestive tract; Z90.710 Acquired absence of both cervix and uterus; Z79.899 Other long term (current) drug therapy; Z91.040 Latex allergy status; Z91.041 Radiographic dye allergy status; Z98.51 Tubal ligation status; Z90.89 Acquired absence of other organs
CPT/HCPCS: 36415; 80053; 85025; 81003; 76705; 99284; 96374; 96375; 96376; 96361; J2765; J2405; J1170 ×2; J1885